=== PATIENT | female | born 1960 | race Caucasian/White ===

== ENCOUNTER 2017-11-03 08:31 | Inpatient (IN) | payer OTHER ==
[2017-10-26 13:51] VITALS: BMI 39.0
--- NOTE | 2017-10-26 13:59 | PAT Medication Instructions ---
Service Date Oct 26, 2017. Current Home Medication List Albuterol Hfa (Ventolin Hfa), 2-4 PUFFS INH Q6H Amitriptyline Hcl (Amitriptyline), 25 MG PO HS Aspirin (Aspirin Ec), 81 MG PO QAM Atorvastatin (Lipitor), 80 MG PO QPM Bupropion (Wellbutrin Sr), 150 MG PO BID Calcium Carbonate-Cholecalcife (Caltrate 600+D), 1 TAB PO BID Chlorhexidine Gluconate (Bulk) (Chlorhexidine Gluconate), 4 % TOP UD PRN for skin irritation Clobetasol Propionate (Clobetasol Propionate Cream 0.05%), 1 APPLN EXT DIRECTED PRN for hand irritation Cranberry-Vitamin C-Vitamin E (Cranberry Plus Vitamin C), 1 TAB PO QAM Cyanocobalamin (Vitamin B-12), 1,000 MCG INJ MONTHLY Duloxetine HCl (Cymbalta), 1 CAP PO HS Esomeprazole Magnesium (Nexium), 40 MG PO BID Fluticasone Propionate (Nasal) (Allergy Nasal [place] 24 Ho), 2 SPRAYS NA QAM Hydrocodone/Acetaminophen 5MG/325MG ([place] 5MG/325MG), 1-2 TAB PO q4-6 PRN for Pain Hydrocortisone (Cortef), 5 MG PO QAM Hydroxyzine Pamoate (Vistaril), 25 MG PO QPM Lamotrigine (Lamictal), 75 MG PO HS Levothyroxine Sodium (Levothyroxine Sodium), 1 TAB PO QAM Melatonin (Melatonin Maximum Strengt), 2 TAB PO HS Multiple Vitamins W/ Minerals (Hair Skin and Nails Formu), 2 TAB PO QAM Multivit/Min/Iron/Fol Ac/Pren ( Vitamin), 1 TAB PO BID Nitroglycerin (Nitrostat), 0.4 MG UT PRN Polyethylene (Miralax), 17 GM PEG QPM Pregabalin (Lyrica), 200 MG PO BID Propranolol La (Inderal La), 60 MG PO HS Topiramate (Topamax), 100 MG PO BID Trazodone Hcl (Trazodone), 25 MG PO HS Medication Instructions For Your Scheduled Surgery Cyanocobalamin (Vitamin B-12), 1,000 MCG INJ MONTHLY (okay to continue as directed) - Hold the following medications starting 10/27/17: Cranberry-Vitamin C-Vitamin E (Cranberry Plus Vitamin C), 1 TAB PO QAM - Hold the following medications 24 hours prior to surgery: Chlorhexidine Gluconate (Bulk) (Chlorhexidine Gluconate), 4 % TOP UD PRN for skin irritation Clobetasol Propionate (Clobetasol Propionate Cream 0.05%), 1 APPLN EXT DIRECTED PRN for hand irritation - Hold the following medications the morning of surgery: Calcium Carbonate-Cholecalcife (Caltrate 600+D), 1 TAB PO BID Multiple Vitamins W/ Minerals (Hair Skin and Nails Formu), 2 TAB PO QAM Multivit/Min/Iron/Fol Ac/Pren ( Vitamin), 1 TAB PO BID - Take the following medications the morning of surgery with a sip of water: Topiramate (Topamax), 100 MG PO BID Pregabalin (Lyrica), 200 MG PO BID Nitroglycerin (Nitrostat), 0.4 MG UT PRN (if needed) Levothyroxine Sodium (Levothyroxine Sodium), 1 TAB PO QAM Hydrocortisone (Cortef), 5 MG PO QAM Hydrocodone/Acetaminophen 5MG/325MG ([place] 5MG/325MG), 1-2 TAB PO q4-6 PRN for Pain (okay to take up to 4 hours prior to surgery if needed) Fluticasone Propionate (Nasal) (Allergy Nasal [place] 24 Ho), 2 SPRAYS NA QAM Esomeprazole Magnesium (Nexium), 40 MG PO BID Bupropion (Wellbutrin Sr), 150 MG PO BID Aspirin (Aspirin Ec), 81 MG PO QAM Albuterol Hfa (Ventolin Hfa), 2-4 PUFFS INH Q6H (if needed) - Take the following medications as scheduled the night before surgery: Trazodone Hcl (Trazodone), 25 MG PO HS Topiramate (Topamax), 100 MG PO BID Propranolol La (Inderal La), 60 MG PO HS Pregabalin (Lyrica), 200 MG PO BID Polyethylene (Miralax), 17 GM PEG QPM Nitroglycerin (Nitrostat), 0.4 MG UT PRN (if needed) Multivit/Min/Iron/Fol Ac/Pren ( Vitamin), 1 TAB PO BID Melatonin (Melatonin Maximum Strengt), 2 TAB PO HS Lamotrigine (Lamictal), 75 MG PO HS Hydroxyzine Pamoate (Vistaril), 25 MG PO QPM Hydrocodone/Acetaminophen 5MG/325MG ([place] 5MG/325MG), 1-2 TAB PO q4-6 PRN for Pain (if needed) Esomeprazole Magnesium (Nexium), 40 MG PO BID Duloxetine HCl (Cymbalta), 1 CAP PO HS Calcium Carbonate-Cholecalcife (Caltrate 600+D), 1 TAB PO BID Bupropion (Wellbutrin Sr), 150 MG PO BID Atorvastatin (Lipitor), 80 MG PO QPM' Albuterol Hfa (Ventolin Hfa), 2-4 PUFFS INH Q6H (if needed) Amitriptyline Hcl (Amitriptyline), 25 MG PO HS If you have any questions please call us at [phone] or [phone] or [phone]
[2017-11-03] VITALS (10 sets, daily range): BP systolic 92–122; BP diastolic 67–89; PULSE 56–75; TEMP 36.4; O2SAT 84–99; Ht 165.1 cm; Wt 112.6 kg
[~2017-11-03] VITALS: Ht 165.1 cm; Wt 112.6 kg
[~2017-11-03 08:31] MED LIST: ALBUMIN HUMAN 5% 12.5 GM/250 ML VIAL IV ONE; AMIT25TA19 PO; ASPI81TA28 PO; ATOR80TA PO; ATROPINE SULFATE 0.1 MG/ML 5ML SYR IV PRN; BUPR-79 PO; CALC-354 PO; CEFAZOLIN 2000MG IV PUSH 15 ML IV SCH; CHLO1SOL TOP; CLBCRM30 EXT; CRAN1CAP14 PO; CYAN10005 INJ; DULO-24 PO; EpHEDrine SULFATE INJ 50 MG/ML AMP IV PRN; FENTANYL CITRATE INJ 50 MCG/1 ML 2 ML VIAL IV PRN; FENTANYL CITRATE INJ 50 MCG/1 ML 2 ML VIAL ONE; FLUT50SP45; HYDR-5688 PO; HYDR1CAP85 PO; HYDR5TAB PO; LACTATED RINGER'S 1000ML 1,000 ML IV SCH; LAMO25TA PO; LEVO125T5 PO; MELATAB2 PO; MIDAZOLAM HCL 1 MG/ML 2ML VIAL ONE; MRLP17X PO; MULT-1018 PO; MoRPHine SULFATE 10 MG/ML CARP/VIAL IV PRN; NTRGSL/4 UT; NXM/40 PO; ONDANSETRON INJ 2 MG/ML 2 ML VIAL IV PRN; PREG200C PO; PRENTAB26 PO; PROP60CA5 PO; TOPI100T34 PO; TRAZ50TA35 PO; VNTHFA/IN INH
--- NOTE | 2017-11-03 08:48 | History & Physical Bridge Note ---
H&P Re-Evaluation Bridge Note: I have examined the patient, reviewed the History & Physical and in the interval since the performance of the History & Physical I have noted the following changes of clinical significance: No changes noted
--- NOTE | 2017-11-03 08:49 | History and Physical ---
History & Physical Date Nov 03, 2017. Chief Complaint Back and leg pain History of Present Illness The patient is a 56 year old female with complaints of chronic back and leg pain Past Medical/Surgical History Medical Problems: (1) Left knee DJD Additional History Hepatic Disease: No Endocrine Disorder: No Kidney Disease: No Hypertension: No Heart Disease: No Bleeding Tendencies: No Infectious Diseases: No Allergies Coded Allergies: ROSINA Inhibitors (Verified Adverse Reaction, Severe, drop in bp, 09/04/15) NSAIDs (Verified Adverse Reaction, Unknown, gastric bypass, 10/26/17) Home Medications Scheduled Albuterol Hfa (Ventolin Hfa), 2-4 PUFFS INH Q6H Amitriptyline Hcl (Amitriptyline), 25 MG PO HS Aspirin (Aspirin Ec), 81 MG PO QAM Atorvastatin (Lipitor), 80 MG PO QPM Bupropion (Wellbutrin Sr), 150 MG PO BID Calcium Carbonate-Cholecalcife (Caltrate 600+D), 1 TAB PO BID Cranberry-Vitamin C-Vitamin E (Cranberry Plus Vitamin C), 1 TAB PO QAM Cyanocobalamin (Vitamin B-12), 1,000 MCG INJ MONTHLY Duloxetine HCl (Cymbalta), 1 CAP PO HS Esomeprazole Magnesium (Nexium), 40 MG PO BID Fluticasone Propionate (Nasal) (Allergy Nasal [place] 24 Ho), 2 SPRAYS NA QAM Hydrocortisone (Cortef), 5 MG PO QAM Hydroxyzine Pamoate (Vistaril), 25 MG PO QPM Lamotrigine (Lamictal), 75 MG PO HS Levothyroxine Sodium (Levothyroxine Sodium), 1 TAB PO QAM Melatonin (Melatonin Maximum Strengt), 2 TAB PO HS Multiple Vitamins W/ Minerals (Hair Skin and Nails Formu), 2 TAB PO QAM Multivit/Min/Iron/Fol Ac/Pren ( Vitamin), 1 TAB PO BID Nitroglycerin (Nitrostat), 0.4 MG UT PRN Polyethylene (Miralax), 17 GM PEG QPM Pregabalin (Lyrica), 200 MG PO BID Propranolol La (Inderal La), 60 MG PO HS Topiramate (Topamax), 100 MG PO BID Trazodone Hcl (Trazodone), 25 MG PO HS Scheduled PRN Chlorhexidine Gluconate (Bulk) (Chlorhexidine Gluconate), 4 % TOP UD PRN for skin irritation Clobetasol Propionate (Clobetasol Propionate Cream 0.05%), 1 APPLN EXT DIRECTED PRN for hand irritation Hydrocodone/Acetaminophen 5MG/325MG ([place] 5MG/325MG), 1-2 TAB PO q4-6 PRN for Pain Physical Examination Skin: warm/dry, no rash Eyes: normal inspection, EOMI, sclerae normal ENT: normal ENT inspection, pharynx normal Head: normocephalic, atraumatic Neck: supple, no adenopathy, trachea midline Respiratory/Chest: lungs clear, normal breath sounds, no respiratory distress Cardiovascular: regular rate, rhythm, no edema, no murmur Abdomen / GI: normal bowel sounds, non tender Back: normal inspection Extremities: normal inspection, normal range of motion Neurologic/Psych: no motor/sensory deficits, alert, normal reflexes, oriented x 3 Diagnosis Lumbar spinal stenosis with scoliosis Plan of Treatment Removal of hardware L4 5 L5-S1 decompression and fusion T11 to L3 with iliac bolts
[2017-11-03] MEDS ORDERED: BACITRACIN 50000 UNIT VIAL ONE (08:58)
[2017-11-03] MEDS ORDERED: BUPIVACAINE/EPINEPHRINE 0.5% MPF 1:200,000 30 ML VIAL ONE (08:58)
[2017-11-03] MEDS ORDERED: THROMBIN FOR SOLN 20000 UNIT KIT ONE (08:58)
[2017-11-03] MEDS ORDERED: HYDROmorphone INJ 2 MG/ML SYR/VIAL ONE ×4 (09:58→13:31)
[2017-11-03] MEDS ORDERED: FENTANYL CITRATE INJ 50 MCG/1 ML 2 ML VIAL ONE ×4 (09:58→14:08)
[2017-11-03] MEDS ORDERED: PROPOFOL IV EMULSION 10 MG/ML 20 ML VIAL IV ONE (10:15)
[2017-11-03] MEDS ORDERED: DEXAMETHASONE SOD INJ 4 MG/ML VIAL ONE (10:15)
[2017-11-03] MEDS ORDERED: LIDOCAINE HCL 2% 2 ML VIAL (20MG/ML) ONE (10:15)
[2017-11-03] MEDS ORDERED: ONDANSETRON INJ 2 MG/ML 2 ML VIAL ONE ×2 (10:15→13:22)
[2017-11-03] MEDS ORDERED: HYDROCORTISONE SOD SUCCINATE 100 MG/2 ML VIAL ONE (10:15)
[2017-11-03 12:42] LABS: HEMATOCRIT 32.3 % (37-47); HEMOGLOBIN 10.3 g/dL (12.0-16.0)
[2017-11-03] MEDS ORDERED: CEFAZOLIN SOD 1 GM VIAL ONE (12:43)
[2017-11-03] MEDS ORDERED: ROCURONIUM BROMIDE 10 MG/ML 5 ML VIAL IV ONE (12:44)
[2017-11-03] MEDS ORDERED: EpHEDrine SULFATE 50MG/5ML SYR ONE (12:44)
[2017-11-03] MEDS ORDERED: VOLUVEN IN NSS ONE (12:44)
[2017-11-03] MEDS ORDERED: CALCIUM CHLORIDE 10% 10 ML SYR ONE (13:01)
[2017-11-03] MEDS ORDERED: FLOSEAL HEMOSTATIC MATRIX 10ML TOP ONE (13:05)
[2017-11-03] MEDS ORDERED: SODIUM CHLORIDE 0.9% 1000ML 1,000 ML IV SCH (13:17)
--- NOTE | 2017-11-03 13:17 | [facility] Operative Report ---
Operative Report Operative Date Nov 03, 2017. Pre-Operative Diagnosis Lumbar spinal stenosis with scoliosis Post-Operative Diagnosis Same Procedure(s) Performed #1 removal of posterior instrumentation L4 5 L5-S1. #2 expiration of fusion L4 5 L5-S1. #3 lumbar decompression medial facetectomies foraminotomies L1-2 L2 3 L3 4. #4 posterior spinal fusion T10 to S1. #5 bilateral SI joint fusions. #6 placement of posterior segmental instrumentation T10 to S1 with bilateral iliac bolts. #7 interbody fusion L2 3. #8 placement of peek cage 10 x 22 mm at L2-3. #9 placement infuse sponge sponge, mass graft in the posterior gutters and osteo-lamp in the interbody spaces. #10 placement locally harvested morcellized autograft in the posterior lateral gutters. Surgeon Dr. Juan Gardener Florist Surgeon(s) Destiney Weeks PA-C Estimated Blood Loss 1300 Findings Severe spinal stenosis with scoliosis Description of Procedure Patient was met with preoperatively case discussed all questions addressed. After informed consent obtained patient was taken to the operative suite underwent intubation and placed in a prone position the Sim table on top of the Jonnie frame. All bony prominences were well-padded the eyes inspected to ensure no external pressure placed upon them. This point the thoracal lumbar spine was prepped and draped in normal sterile fashion. Sharp dissection with the assistance of Bovie cautery was performed onto an exposing the lamina and transverse processes of T10 T11 T12 L1 L2 L3 in the instrumentation at L4 L5 S1 levels as well as bilateral SI joints. Then proceeded remove the hardware L4 L4 5 and S1 levels explored the fusion mass noting it to be intact. Then performed a complete laminectomy of L3 L2 and L1 addressing severe stenosis. This included medial facetectomies foraminotomies. After this complete pedicle screws were placed in T10 T11 L1 L2-L3 L4 S1 levels as well as bilateral iliac bolts. Through a transforaminal approach on the left complete discectomy of L2- 3 was performed endplates graded to subcortical bleeding bone and a 10 x 22 mm peek cage filled with osteal bone graft tapped in position. The processes rods were then cut contoured and locked in position bilaterally. Transverse processes and lamina of T10-T11 T12 L1 L2 L3 L4 L5 burred to subcortical bleeding bone as well as burring out the bilateral SI joints to subcortical bleeding bone. Infuse collagen sponge mass graft locally harvested morcellized autograft was placed in the bilateral SI joints in the posterior lateral gutters. A 15 round TASHA drain was inserted. Incision was then closed with 1 Vicryl fascia 2-0 Vicryl subcutaneous tensely 4-0 Monocryl for final skin closure Steri-Strips dressings placed. Patient with continued PACU stable condition. Please note Destiney Kelly was present at the entire procedure involved in patient positioning complex portions of the surgery and final skin closure. I attest to the content of the Intraoperative Record and any orders documented therein. Any exceptions are noted below.
[2017-11-03] MEDS ORDERED: GLYCOPYRROLATE INJ 0.2 MG/ML VIAL ONE (13:22)
[2017-11-03] MEDS ORDERED: NEOSTIGMINE METHYLSULFATE 1 MG/ML 10ML VIAL ONE (13:22)
[2017-11-03] MEDS ORDERED: METOCLOPRAMIDE HCL INJ 5 MG/ML 2 ML VIAL IV PRN (13:30)
[2017-11-03] MEDS ORDERED: ONDANSETRON INJ 2 MG/ML 2 ML VIAL IV PRN (13:30)
[2017-11-03] MEDS ORDERED: NITROGLYCERIN 0.4 MG SL PER TAB CHARGE UT SCH (13:30)
[2017-11-03] MEDS ORDERED: PROMETHAZINE HCL INJ 12.5 MG in SODIUM CHLORIDE 0.9% 50ML 50 ML IV PRN (13:30)
[2017-11-03] MEDS ORDERED: ACETAMINOPHEN 500 MG TAB PO PRN (13:30)
[2017-11-03] MEDS ORDERED: LORAZEPAM INJ 0.5 MG in SYRINGE 0 ML IV PRN (13:30)
[2017-11-03] MEDS ORDERED: BISACODYL 10 MG SUPP PR PRN (13:30)
[2017-11-03] MEDS ORDERED: SOD PHOSPHATE/SOD BIPHOSPHATE ENEMA 132 ML BTL PR PRN (13:30)
[2017-11-03] MEDS ORDERED: hydrOXYzine HCL 25 MG TAB PO PRN (13:30)
[2017-11-03] MEDS ORDERED: LORAZEPAM 0.5 MG TAB PO PRN (13:30)
[2017-11-03] MEDS ORDERED: ACETAMINOPHEN IV 100 ML IV PRN (13:30)
[2017-11-03] MEDS ORDERED: HYDROmorphone HCL 0.5MG/ML 50 ML CASSETTE IV PRN (13:30)
[2017-11-03] MEDS ORDERED: NALOXONE HCL 0.4 MG/1 ML VIAL/CARP IV PRN ×2 (13:30)
[2017-11-03] MEDS ORDERED: FAMOTIDINE 20 MG TAB PO PRN (13:30)
[2017-11-03] MEDS ORDERED: DO NOT ADMINISTER PNEUMOCOCCAL VACCINE PRN (13:30)
[2017-11-03] MEDS ORDERED: ALUMINUM/MAGNESIUM SUSP 30 ML UDC PO PRN (13:30)
[2017-11-03] MEDS ORDERED: DO NOT ADMINISTER FLU VACCINE PRN (13:30)
--- NOTE | 2017-11-03 13:36 | DIAGNOSTIC IMAGING REPORT ---
LUMBAR SPINE 2 OR 3 VIEW CLINICAL HISTORY: L4-S1 REMOVE HARDWARE/T11-L3 DECOMPRESSION/FUSION/BOLTS Fluoroscopy time: 43.3 seconds. COMPARISON STUDY: Lumbar spine fluoroscopic images October 04, 2013. FINDINGS: Hardware removal is noted. A previous L5-S1 discectomy is noted. An interval L2-L3 discectomy with interbody spacer placement as noted. Iliac bolts are in place. There are bilateral pedicle screws at T10, T11, L1, L2, L3, L4 and S1 levels. IMPRESSION: Postoperative findings consistent with an interval L2-L3 discectomy fusion and T10-S1 fusion with placement of bilateral iliac bolts. Electronically signed by: Zeferino Alcazar M.D. 11/03/2017 1:35 PM Dictated Date/Time: 11/03/2017 1:30 PM
[2017-11-03] MEDS ORDERED: HYDROmorphone HCL 0.5MG/ML 50 ML CASSETTE ONE (13:47)
[2017-11-03] MEDS ORDERED: MoRPHine SULFATE 10 MG/ML CARP/VIAL ONE (14:09)
--- NOTE | 2017-11-03 14:23 | Anesthesiology Progress Note ---
Anesthesia Post Op Note Date & Time Nov 03, 2017 at 14:21 Vital Signs Vital Signs Past 12 Hours Date Time Temp Pulse Resp B/P (MAP) Pulse Ox O2 Delivery O2 Flow Rate FiO2 11/03/17 13:46 36.3 71 16 134/85 99 Oxymask 10 11/03/17 09:00 36.4 56 20 122/87 96 Room Air Notes Mental Status: alert / awake / arousable, participated in evaluation Pt Amnestic to Procedure: Yes Nausea / Vomiting: adequately controlled Pain: adequately controlled Airway Patency, RR, SpO2: stable & adequate BP & HR: stable & adequate Hydration State: stable & adequate Anesthetic Complications: no major complications apparent Due to the pt's estimated blood loss of 1300mL and pt's history of CAD s/p cardiac stent, the pt will be discharged from PACU to telemetry for closer observation.
[2017-11-03] MEDS: SODIUM CHLORIDE 0.9% 1000ML 1,000 ML IV SCH ×2 (15:30→22:03)
[2017-11-03] MEDS: ALBUTEROL HFA 8 GM INHALER INH SCH (17:55)
[2017-11-03] MEDS: CEFAZOLIN IV 2,000 MG in SYRINGE 0 ML IV SCH (17:55)
--- NOTE | 2017-11-03 20:20 | Medical Consult ---
Consultation Date of Consultation: Nov 03, 2017. Attending Physician: Domingo Juan D.O. Reason for Consultation: Medical management . History of Present Illness 56-year-old female followed by Pranav Hong PA-C in [place]. History of coronary artery disease status post stenting, COPD, sleep apnea, adrenal insufficiency, and other problems noted below. Removal of lumbar hardware and lumbar fusion performed today by Dr. Juan. Doing fairly well postoperatively. No chest pain. No cough or dyspnea. No nausea or vomiting. Has Hemphill catheter. Having some postoperative pain. . Past Medical/Surgical History Chronic and Resolved Medical Problems: (1) Adrenal insufficiency Status: Chronic (2) COPD (chronic obstructive pulmonary disease) Status: Chronic (3) Coronary artery disease Status: Chronic (4) Degenerative disc disease Status: Chronic (5) Fibromyalgia Status: Chronic (6) Hypertension Status: Chronic (7) Metabolic syndrome Status: Chronic (8) Obesity Status: Chronic (9) Sleep apnea Permanent Comment: CPAP Status: Chronic Surgical Problems: (1) History of incisional hernia repair Status: Chronic (2) Status following gastric bypass for weight loss Status: Chronic (3) Status post coronary artery stent placement Status: Chronic (4) Status post hysterectomy Status: Chronic (5) Status post lumbar surgery Status: Chronic (6) Status post cholecystectomy Status: Chronic . Family History Mother-hypertension, diabetes, arthritis Father-coronary artery disease, ALS, hypertension Sister-coronary artery disease, peripheral Maternal grandfather -prostate cancer Paternal grandfather-coronary disease, diabetes . Social History Smoking Status: Former Smoker Alcohol Use: occasionally Drug Use: none Marital Status: Housing Status: lives with family Allergies Coded Allergies: ROSINA Inhibitors (Verified Adverse Reaction, Severe, drop in bp, 11/03/17) NSAIDs (Verified Adverse Reaction, Unknown, gastric bypass, 11/03/17) Home Medications Reported Home Medications Medications Dose Route/Sig Max Daily Dose Days Date Category Dose Instructions Clobetasol Propionate Cream 0.05% (Clobetasol Propionate) 90 Appln/30 Gm Cr 1 Appln EXT DIRECTED PRN 10/26/17 Reported Allergy Nasal [place] 24 Ho (Fluticasone Propionate (Nasal)) 50 Mcg/Act Spr 2 Sprays NA QAM 10/26/17 Reported Miralax (Polyethylene) 17 Gm Pow 17 Gm PO QPM 10/26/17 Reported Vitamin B-12 (Cyanocobalamin) 1,000 Mcg Tab 1,000 Mcg INJ MONTHLY 10/26/17 Reported Trazodone (Trazodone HCl) 50 Mg Tab 25 Mg PO HS 10/26/17 Reported Inderal La (Propranolol HCl) 60 Mg Capcr 60 Mg PO HS 10/26/17 Reported Hair Skin and Nails Formu (Multiple Vitamins W/ Minerals) 1 Tab Tab 2 Tab PO QAM 10/26/17 Reported Melatonin Maximum Strengt (Melatonin) 5 Mg Tab 2 Tab PO HS 30 10/26/17 Reported Lamictal (Lamotrigine) 25 Mg Tab 75 Mg PO HS 10/26/17 Reported Cymbalta (Duloxetine HCl) 20 Mg Cap 1 Cap PO HS 30 10/26/17 Reported Cranberry Plus Vitamin C (Cranberry-Vitamin C-Vitamin E) 1 Cap Cap 1 Tab PO QAM 10/26/17 Reported Aspirin Ec (Aspirin) 81 Mg Tab 81 Mg PO QAM 10/26/17 Reported Ventolin Hfa (Albuterol) 200 Puffs/33726 Mcg Aers 2-4 Puffs INH Q6H 10/26/17 Reported Caltrate 600+D (Calcium Carbonate-Cholecalcife) 1 Tab Tab 1 Tab PO BID 10/26/17 Reported Lipitor (Atorvastatin) 80 Mg Tab 80 Mg PO QPM 10/26/17 Reported [place] 5MG/325MG (Acetaminophen/Hydrocodone Bitart) Tab 1-2 Tab PO Q4-6 PRN 09/06/15 Rx PRN PAIN Vistaril (Hydroxyzine Pamoate) 25 Mg Cap 25 Mg PO QPM 08/09/15 Reported Chlorhexidine Gluconate (Chlorhexidine Gluconate (Bulk)) 1 Mallorie Mallorie 4 % TOP UD PRN 08/09/15 Reported Topamax (Topiramate) 100 Mg Tab 100 Mg PO BID 08/09/15 Reported Lyrica (Pregabalin) 200 Mg Cap 200 Mg PO BID 08/09/15 Reported Levothyroxine Sodium 125 Mcg Tab 1 Tab PO QAM 90 08/09/15 Reported Cortef (Hydrocortisone) 5 Mg Tab 5 Mg PO QAM 08/09/15 Reported Nitrostat (Nitroglycerin) 0.4 Mg Tab 0.4 Mg UT PRN 09/25/13 Reported Wellbutrin Sr (Bupropion HCl) 150 Mg Ertab 150 Mg PO BID 09/25/13 Reported Nexium (Esomeprazole Magnesium) 40 Mg Capcr 40 Mg PO BID 09/21/13 Reported Current Inpatient Medications Current Inpatient Medications Medications (Trade) Dose Ordered Sig/Estephania Route Start Time Stop Time Status Last Admin Dose Admin Promethazine HCl 12.5 mg/Sodium Chloride 50.5 ml @ 202 mls/hr Q6H PRN IV 11/03/17 13:30 12/03/17 13:29 Ondansetron HCl (Zofran Inj) 4 mg Q6H PRN IV 11/03/17 13:30 12/03/17 13:29 Metoclopramide HCl (Reglan Inj) 10 mg Q6H PRN IV 11/03/17 13:30 12/03/17 13:29 Lorazepam (Ativan Tab) 0.5 mg Q8H PRN PO 11/03/17 13:30 12/03/17 13:29 Lorazepam 0.5 mg/ Syringe 0.25 ml @ 1 mls/min Q8H PRN IV 11/03/17 13:30 12/03/17 13:29 Pneumococcal Polysaccharide Vaccine 1 ea PRN PRN N/A 11/03/17 13:30 12/03/17 13:29 Influenza Virus Vacc Triv Types A&B 1 ea PRN PRN N/A 11/03/17 13:30 12/03/17 13:29 Polyethylene (Miralax Powder Packet) 17 gm Q6 PO 11/05/17 06:00 12/05/17 05:59 Bisacodyl (Dulcolax Supp) 10 mg DAILY PRN ME 11/03/17 13:30 12/03/17 13:29 Magnesium Hydroxide (Milk Of Magnesia Susp) 30 ml DAILY PRN PO 11/03/17 13:30 12/03/17 13:29 Hydromorphone HCl (Dilaudid Inj) 0.5 mg Q3H PRN IV 11/04/17 06:00 11/18/17 05:59 Oxycodone HCl (Roxicodone Immediate Rel Tab) 5-10mg prn moderate to sev... Q4H PRN PO 11/04/17 06:00 11/18/17 05:59 Cefazolin Sodium 2000 mg/Syringe 15 ml @ 5 mls/min Q8H IV 11/03/17 18:00 11/04/17 02:08 11/03/17 17:55 5 MLS/MIN Sodium Chloride 1,000 ml @ 150 mls/hr Q6H40M IV 11/03/17 15:30 12/03/17 15:29 11/03/17 15:30 150 MLS/HR Acetaminophen (Tylenol Tab) 1,000 mg Q8H PRN PO 11/03/17 13:30 12/03/17 13:29 Acetaminophen 100 ml @ 400 mls/hr Q8H PRN IV 11/03/17 13:30 12/03/17 13:29 Naloxone HCl (Narcan Inj) 0.1 mg Q5M PRN IV 11/03/17 13:30 12/03/17 13:29 Senna/Docusate Sodium (Senokot S Tab) 2 tab HS PO 11/03/17 21:00 12/03/17 20:59 Sodium Biphosphate/ Sodium Phosphate (Fleet Enema) 132 ml ONE PRN ME 11/03/17 13:30 12/03/17 13:29 Hydroxyzine HCl (Vistaril Tab) 25 mg Q8H PRN PO 11/03/17 13:30 12/03/17 13:29 Al Hydroxide/Mg Hydroxide (Maalox Susp) 30 ml Q6H PRN PO 11/03/17 13:30 12/03/17 13:29 Famotidine (Pepcid Tab) 20 mg Q12 PRN PO 11/03/17 13:30 12/03/17 13:29 Diphenhydramine HCl (Benadryl Cap) 25 mg Q6H PRN PO 11/03/17 13:30 12/03/17 13:29 Miscellaneous Information (Discontinue DIRECTOR OF PLACEMENT) 1 ea TODAY@0600 N/A 11/04/17 06:00 11/04/17 06:01 Naloxone HCl (Narcan Inj) 0.1 mg Q5M PRN IV 11/03/17 13:30 11/04/17 06:00 Hydromorphone HCl (Dilaudid Facialist) 25 mg PRN PRN IV 11/03/17 13:30 11/04/17 06:00 11/03/17 15:20 25 MG Sodium Chloride 1,000 ml @ 15 mls/hr Q24H IV 11/03/17 13:17 11/04/17 06:00 11/03/17 13:17 15 MLS/HR Albuterol (Ventolin Hfa Inhaler) 2 puffs Q6 INH 11/03/17 18:00 12/03/17 17:59 11/03/17 17:55 2 PUFFS Aspirin (Ecotrin Tab) 81 mg QAM PO 11/04/17 09:00 12/04/17 08:59 Atorvastatin Calcium (Lipitor Tab) 80 mg QPM PO 11/03/17 21:00 12/03/17 20:59 Bupropion HCl (Wellbutrin-Sr Tab) 150 mg BID PO 11/03/17 21:00 12/03/17 20:59 Duloxetine HCl (Cymbalta Cap) 20 mg HS PO 11/03/17 21:00 12/03/17 20:59 Fluticasone Propionate (Flonase Nasal [place]) 2 sprays QAM NA 11/04/17 09:00 12/04/17 08:59 Hydrocortisone (Cortef Tab) 5 mg QAM PO 11/04/17 09:00 12/04/17 08:59 Lamotrigine (Lamictal Tab) 75 mg HS PO 11/03/17 21:00 12/03/17 20:59 Levothyroxine Sodium (Synthroid Tab) 125 mcg DAILYBB PO 11/04/17 06:00 12/04/17 05:59 Nitroglycerin (Nitrostat Tab) 0.4 mg PRN UT 11/03/17 13:30 12/03/17 13:29 Pregabalin (Lyrica Cap) 200 mg BID PO 11/03/17 21:00 12/03/17 20:59 Propranolol HCl (Inderal La Cap) 60 mg HS PO 11/03/17 21:00 12/03/17 20:59 Topiramate (Topamax Tab) 100 mg BID PO 11/03/17 21:00 12/03/17 20:59 Trazodone HCl (Desyrel Tab) 25 mg HS PO 11/03/17 21:00 12/03/17 20:59 Pantoprazole Sodium (Protonix Tab) 40 mg BID PO 11/03/17 21:00 12/03/17 20:59 Hydromorphone HCl (Dilaudid Inj) 1 mg Q3H PRN IV 11/03/17 15:45 11/17/17 15:44 Review of Systems Constitutional: No fever, No weight loss Respiratory: No cough, No shortness of breath Cardiovascular: No chest pain Abdomen: + constipation, No nausea, No vomiting, No diarrhea, No GI bleeding Genitourinary - Female: No dysuria, No hematuria Hematologic / Lymphatic: + abnormal bleeding/bruising (Bruises easily) Physical Exam Date Time Temp Pulse Resp B/P (MAP) Pulse Ox O2 Delivery O2 Flow Rate FiO2 11/03/17 19:11 69 18 92/80 (84) 97 Nasal Cannula 2.0 11/03/17 18:31 75 17 112/71 (85) 96 11/03/17 17:45 75 16 108/81 (90) 11/03/17 16:45 64 4 106/89 (95) 11/03/17 16:15 66 4 102/73 (83) 84 11/03/17 15:45 60 14 99/73 (82) 93 11/03/17 15:08 68 16 93 11/03/17 15:08 67 16 11/03/17 15:06 141/89 11/03/17 15:03 67 14 93 11/03/17 15:03 67 14 11/03/17 15:02 /69 11/03/17 14:58 68 12 94 11/03/17 14:58 68 12 11/03/17 14:57 106/87 11/03/17 14:53 68 16 11/03/17 14:53 68 16 92 11/03/17 14:52 36.2 11/03/17 14:51 123/93 11/03/17 14:48 66 18 94 11/03/17 14:48 66 18 11/03/17 14:47 63 13 11/03/17 14:47 63 13 100/70 93 11/03/17 14:42 69 16 11/03/17 14:42 69 16 135/85 92 11/03/17 14:37 68 16 92 11/03/17 14:37 69 16 11/03/17 14:36 123/83 11/03/17 14:32 67 16 110/85 96 11/03/17 14:32 67 16 11/03/17 14:27 65 20 11/03/17 14:27 74 20 148/74 98 11/03/17 14:23 117/75 11/03/17 14:22 67 16 11/03/17 14:22 66 16 96 11/03/17 14:21 65 16 11/03/17 14:21 65 16 97 11/03/17 14:17 136/71 11/03/17 14:16 63 16 11/03/17 14:16 63 16 95 11/03/17 14:14 111/83 11/03/17 14:11 64 16 96 11/03/17 14:11 64 16 11/03/17 14:07 105/70 11/03/17 14:06 65 13 95 11/03/17 14:06 65 13 11/03/17 14:02 112/86 11/03/17 14:01 63 11 98 11/03/17 14:01 63 11 11/03/17 13:57 122/76 11/03/17 13:56 61 17 100 11/03/17 13:56 61 17 11/03/17 13:52 133/80 11/03/17 13:51 72 17 95 11/03/17 13:51 66 17 11/03/17 13:47 134/85 11/03/17 13:46 36.3 71 16 134/85 99 Oxymask 10 11/03/17 09:00 36.4 56 20 122/87 96 Room Air General Appearance: no apparent distress, + mild distress, + obese Head: normocephalic, atraumatic Eyes: normal inspection, PERRL, EOMI, sclerae normal ENT: normal ENT inspection, hearing grossly normal Neck: thyroid normal, trachea midline Respiratory/Chest: lungs clear (to auscultation), no respiratory distress, no accessory muscle use Cardiovascular: regular rate, rhythm, no edema, no gallop, no JVD, no murmur Abdomen/GI: normal bowel sounds, non tender, soft, no organomegaly Extremities/Musculoskelatal: no calf tenderness, + pertinent finding (no cyanosis; no clubbing; TEDS and SCD's applied) Neurologic/Psych: talent program manager II-XII nml as tested (PERRL, EOMI, no facial palsy), no motor/sensory deficits (motor strength extremities grossly intact), alert, normal mood/affect, oriented x 3 Skin: normal color, warm/dry, no rash Lymphatic: no adenopathy (Cervical) Laboratory Results Last 24 Hours Test 11/03/17 12:31 Hemoglobin 10.3 g/dL Hematocrit 32.3 % Assessment & Plan STATUS POST REMOVAL OF LUMBAR HARDWARE + LUMBAR FUSION Doing well postoperatively. CORONARY ARTERY DISEASE No anginal symptoms. Status post coronary PCI with stenting. Continue aspirin if okay from surgical perspective. Continue propranolol and statin. COPD Respiratory status stable. Incentive spirometry. Continue usual inhalers. SLEEP APNEA Continue CPAP. ADRENAL INSUFFICIENCY On chronic steroid therapy for adrenal insufficiency. Medication reconciliation indicates the patient is taking hydrocortisone 5 mg daily. According to outpatient medication list, current steroid dosage prednisone 5 mg daily. Will correct medication reconciliation. Received IV hydrocortisone perioperatively. Hemodynamically stable. HYPOTHYROIDISM Continue levothyroxine. OBESITY BMI 41. AHA diet.diet. FIBROMYALGIA /OSTEOARTHRITIS Continue usual medications. VTE PROPHYLAXIS Per Orthopedics protocol. Thank you for this consultation. We will follow the patient with you during their hospital stay. Dr. Enrique will be assuming medical management on 11/04. You can reach a member of the [facility] Medicine Team 29/03 via pager @ [phone]. You can reach me via cell @ [phone]. .
[2017-11-03] MEDS: DULOXETINE HCL 20 MG CAP PO SCH (20:56)
[2017-11-03] MEDS: TRAZODONE HCL 50 MG TAB PO SCH (20:56)
[2017-11-03] MEDS: PROPRANOLOL HCL 60 MG LA CAP PO SCH (20:57)
[2017-11-03] MEDS: ATORVASTATIN 40 MG TAB PO SCH (20:57)
[2017-11-03] MEDS: BuPROPion SR 150 MG TABCR PO SCH (20:57)
[2017-11-03] MEDS: TOPIRAMATE 100 MG TAB PO SCH (20:57)
[2017-11-03] MEDS: PANTOprazole SOD 40 MG TAB PO SCH (20:57)
[2017-11-03] MEDS: DOCUSATE SODIUM/SENNA 50/8.6MG TAB PO SCH (20:57)
[2017-11-03] MEDS: PREGABALIN 100 MG CAP PO SCH (21:00)
[2017-11-04] MEDS: CEFAZOLIN IV 2,000 MG in SYRINGE 0 ML IV SCH (02:19)
[2017-11-04 03:38] VITALS: BP_SYST 117; PULSE 70; TEMP 36.6; O2SAT 100
[2017-11-04] MEDS: SODIUM CHLORIDE 0.9% 1000ML 1,000 ML IV SCH ×2 (04:39→09:25)
[2017-11-04] MEDS ORDERED: DC PCA SCH (06:00)
[2017-11-04] MEDS: LEVOTHYROXINE 125 MCG TAB PO SCH (06:06)
[2017-11-04] MEDS: ALBUTEROL HFA 8 GM INHALER INH SCH ×5 (06:06→23:21)
[2017-11-04] MEDS: OXYCODONE HCL IR 5 MG TAB (IMMEDIATE RELEASE) PO PRN ×4 (06:15→21:12)
[2017-11-04 06:37] LABS: BASO % 0.1 %; BASO ABS # 0.01 K/uL (0-0.2); EOS % 0.1 %; EOS ABS # 0.01 K/uL (0-0.5); HEMATOCRIT 29.4 % (37-47); HEMOGLOBIN 9.5 g/dL (12.0-16.0); IG# 0.05 K/uL (0.00-0.02); LYMPH % 15.5 %; LYMPH ABS # 1.25 K/uL (1.2-3.4); MEAN CELL VOLUME 92.7 fL (80-100); MEAN CORPUSCULAR HGB CONC 32.3 g/dl (32-36); MONO % 9.3 %; MONO ABS # 0.75 K/uL (0.11-0.59); NEUT % 74.4 %; NEUT ABS # 5.98 K/uL (1.4-6.5); NUCLEATED RED BLOOD CELL ABS 0.02 K/uL (0-0); PLATELET COUNT 133 K/uL (130-400); RED CELL DISTRIBUTION WIDTH CV 16.6 % (11.5-14.5); RED CELL DISTRIBUTION WIDTH SD 56.2 fL (36.4-46.3); WHITE BLOOD COUNT 8.05 K/uL (4.8-10.8)
[2017-11-04 07:07] LABS: CALCIUM 7.9 mg/dl (8.5-10.1); CREATININE 0.64 mg/dl (0.60-1.20); POTASSIUM 4.3 mmol/L (3.5-5.1)
[2017-11-04] MEDS ORDERED: PRED-301 PO (07:23)
[2017-11-04 07:49] VITALS: BP 102/44; PULSE 76; TEMP 36.9; O2SAT 96
--- NOTE | 2017-11-04 07:54 | Progress Note ---
Progress Note Date of Service Nov 04, 2017. Progress Note Patient's pain is well-controlled. She denies any leg pain. She is comfortable sitting up in bed and eating her breakfast. Vital signs are stable. Hematocrit stable. On exam she is excellent strength testing. Assessment status post thoracolumbar fusion. Plan at this time when she is cleared by medicine we will have her transferred to the orthopedic floor. At that point initiate more activity with physical therapy occupational therapy we will determine disposition over the next few days pending her results with therapy.
[2017-11-04] MEDS: FLUTICASONE PROPIONATE NA SPR 16 GM BTL SCH (08:40)
[2017-11-04] MEDS: PREGABALIN 100 MG CAP PO SCH ×2 (08:41→21:11)
[2017-11-04] MEDS: ASPIRIN 81 MG ECTAB PO SCH (08:41)
[2017-11-04] MEDS: PANTOprazole SOD 40 MG TAB PO SCH ×2 (08:41→21:11)
[2017-11-04] MEDS: TOPIRAMATE 100 MG TAB PO SCH ×2 (08:42→21:11)
[2017-11-04] MEDS: BuPROPion SR 150 MG TABCR PO SCH ×2 (08:42→21:11)
[2017-11-04] MEDS: HYDROmorphone INJ 1 MG/ML SYR IV PRN ×2 (08:47→17:50)
--- NOTE | 2017-11-04 08:59 | Progress Note ---
Subjective Date of Service: Nov 04, 2017. Subjective Pt evaluation today including: conversation w/ patient, physical exam, lab review, review of studies, review of inpatient medication list Saw/examined the patient in room 205 Back pain is improving, though feeling slightly stiff this morning Denies chest pain/shortness of breath Review of Systems Constitutional: No fever, No chills, No weakness Respiratory: No shortness of breath Cardiac: No chest pain Musculoskeletal: + see HPI, + joint pain, + muscle pain Medications Current Inpatient Medications Medications (Trade) Dose Ordered Sig/Estephania Route Start Time Stop Time Status Last Admin Dose Admin Promethazine HCl 12.5 mg/Sodium Chloride 50.5 ml @ 202 mls/hr Q6H PRN IV 11/03/17 13:30 12/03/17 13:29 Ondansetron HCl (Zofran Inj) 4 mg Q6H PRN IV 11/03/17 13:30 12/03/17 13:29 Metoclopramide HCl (Reglan Inj) 10 mg Q6H PRN IV 11/03/17 13:30 12/03/17 13:29 Lorazepam (Ativan Tab) 0.5 mg Q8H PRN PO 11/03/17 13:30 12/03/17 13:29 Lorazepam 0.5 mg/ Syringe 0.25 ml @ 1 mls/min Q8H PRN IV 11/03/17 13:30 12/03/17 13:29 Pneumococcal Polysaccharide Vaccine 1 ea PRN PRN N/A 11/03/17 13:30 12/03/17 13:29 Influenza Virus Vacc Triv Types A&B 1 ea PRN PRN N/A 11/03/17 13:30 12/03/17 13:29 Polyethylene (Miralax Powder Packet) 17 gm Q6 PO 11/05/17 06:00 12/05/17 05:59 Bisacodyl (Dulcolax Supp) 10 mg DAILY PRN [place] 11/03/17 13:30 12/03/17 13:29 Magnesium Hydroxide (Milk Of Magnesia Susp) 30 ml DAILY PRN PO 11/03/17 13:30 12/03/17 13:29 Hydromorphone HCl (Dilaudid Inj) 0.5 mg Q3H PRN IV 11/04/17 06:00 11/18/17 05:59 Oxycodone HCl (Roxicodone Immediate Rel Tab) 5-10mg prn moderate to sev... Q4H PRN PO 11/04/17 06:00 11/18/17 05:59 11/04/17 06:15 10 MG Sodium Chloride 1,000 ml @ 150 mls/hr Q6H40M IV 11/03/17 15:30 12/03/17 15:29 11/04/17 04:39 150 MLS/HR Acetaminophen (Tylenol Tab) 1,000 mg Q8H PRN PO 11/03/17 13:30 12/03/17 13:29 Acetaminophen 100 ml @ 400 mls/hr Q8H PRN IV 11/03/17 13:30 12/03/17 13:29 Naloxone HCl (Narcan Inj) 0.1 mg Q5M PRN IV 11/03/17 13:30 12/03/17 13:29 Senna/Docusate Sodium (Senokot S Tab) 2 tab HS PO 11/03/17 21:00 12/03/17 20:59 11/03/17 20:57 2 TAB Sodium Biphosphate/ Sodium Phosphate (Fleet Enema) 132 ml ONE PRN [place] 11/03/17 13:30 12/03/17 13:29 Hydroxyzine HCl (Vistaril Tab) 25 mg Q8H PRN PO 11/03/17 13:30 12/03/17 13:29 Al Hydroxide/Mg Hydroxide (Maalox Susp) 30 ml Q6H PRN PO 11/03/17 13:30 12/03/17 13:29 Famotidine (Pepcid Tab) 20 mg Q12 PRN PO 11/03/17 13:30 12/03/17 13:29 Diphenhydramine HCl (Benadryl Cap) 25 mg Q6H PRN PO 11/03/17 13:30 12/03/17 13:29 Albuterol (Ventolin Hfa Inhaler) 2 puffs Q6 INH 11/03/17 18:00 12/03/17 17:59 11/04/17 06:06 2 PUFFS Aspirin (Ecotrin Tab) 81 mg QAM PO 11/04/17 09:00 12/04/17 08:59 11/04/17 08:41 81 MG Atorvastatin Calcium (Lipitor Tab) 80 mg QPM PO 11/03/17 21:00 12/03/17 20:59 11/03/17 20:57 80 MG Bupropion HCl (Wellbutrin-Sr Tab) 150 mg BID PO 11/03/17 21:00 12/03/17 20:59 11/04/17 08:42 150 MG Duloxetine HCl (Cymbalta Cap) 20 mg HS PO 11/03/17 21:00 12/03/17 20:59 11/03/17 20:56 20 MG Fluticasone Propionate (Flonase Nasal [place]) 2 sprays QAM NA 11/04/17 09:00 12/04/17 08:59 11/04/17 08:40 2 SPRAYS Lamotrigine (Lamictal Tab) 75 mg HS PO 11/03/17 21:00 12/03/17 20:59 11/03/17 20:57 75 MG Levothyroxine Sodium (Synthroid Tab) 125 mcg DAILYBB PO 11/04/17 06:00 12/04/17 05:59 11/04/17 06:06 125 MCG Nitroglycerin (Nitrostat Tab) 0.4 mg PRN [place] 11/03/17 13:30 12/03/17 13:29 Pregabalin (Lyrica Cap) 200 mg BID PO 11/03/17 21:00 12/03/17 20:59 11/04/17 08:41 200 MG Propranolol HCl (Inderal La Cap) 60 mg HS PO 11/03/17 21:00 12/03/17 20:59 Topiramate (Topamax Tab) 100 mg BID PO 11/03/17 21:00 12/03/17 20:59 11/04/17 08:42 100 MG Trazodone HCl (Desyrel Tab) 25 mg HS PO 11/03/17 21:00 12/03/17 20:59 11/03/17 20:56 25 MG Pantoprazole Sodium (Protonix Tab) 40 mg BID PO 11/03/17 21:00 12/03/17 20:59 11/04/17 08:41 40 MG Hydromorphone HCl (Dilaudid Inj) 1 mg Q3H PRN IV 11/03/17 15:45 11/17/17 15:44 Prednisone (PredniSONE TAB) 5 mg DAILY PO 11/04/17 09:00 12/04/17 08:59 Objective Vital Signs Date Time Temp Pulse Resp B/P (MAP) Pulse Ox O2 Delivery O2 Flow Rate FiO2 11/04/17 07:49 36.9 76 18 102/44 (63) 96 Nasal Cannula 2.0 11/04/17 04:00 CPAP 4.0 11/04/17 03:38 36.6 70 18 117/ (39) 100 CPAP 11/04/17 00:00 CPAP 4.0 11/03/17 23:45 36.4 72 17 104/67 (79) 99 CPAP 11/03/17 22:29 96 4.0 11/03/17 20:19 97 Nasal Cannula 2.0 11/03/17 19:11 69 18 92/80 (84) 97 Nasal Cannula 2.0 11/03/17 18:31 75 17 112/71 (85) 96 11/03/17 17:45 75 16 108/81 (90) 11/03/17 16:45 64 4 106/89 (95) 11/03/17 16:15 66 4 102/73 (83) 84 11/03/17 15:45 60 14 99/73 (82) 93 11/03/17 15:08 68 16 93 11/03/17 15:08 67 16 11/03/17 15:06 141/89 11/03/17 15:03 67 14 93 11/03/17 15:03 67 14 11/03/17 15:02 /69 11/03/17 14:58 68 12 94 11/03/17 14:58 68 12 11/03/17 14:57 106/87 11/03/17 14:53 68 16 11/03/17 14:53 68 16 92 11/03/17 14:52 36.2 11/03/17 14:51 123/93 11/03/17 14:48 66 18 94 11/03/17 14:48 66 18 11/03/17 14:47 63 13 11/03/17 14:47 63 13 100/70 93 11/03/17 14:42 69 16 11/03/17 14:42 69 16 135/85 92 11/03/17 14:37 68 16 92 11/03/17 14:37 69 16 11/03/17 14:36 123/83 11/03/17 14:32 67 16 110/85 96 11/03/17 14:32 67 16 11/03/17 14:27 65 20 11/03/17 14:27 74 20 148/74 98 11/03/17 14:23 117/75 11/03/17 14:22 67 16 11/03/17 14:22 66 16 96 11/03/17 14:21 65 16 11/03/17 14:21 65 16 97 11/03/17 14:17 136/71 11/03/17 14:16 63 16 11/03/17 14:16 63 16 95 11/03/17 14:14 111/83 11/03/17 14:11 64 16 96 11/03/17 14:11 64 16 11/03/17 14:07 105/70 11/03/17 14:06 65 13 95 11/03/17 14:06 65 13 11/03/17 14:02 112/86 11/03/17 14:01 63 11 98 11/03/17 14:01 63 11 11/03/17 13:57 122/76 11/03/17 13:56 61 17 100 11/03/17 13:56 61 17 11/03/17 13:52 133/80 11/03/17 13:51 72 17 95 11/03/17 13:51 66 17 11/03/17 13:47 134/85 11/03/17 13:46 36.3 71 16 134/85 99 Oxymask 10 11/03/17 09:00 36.4 56 20 122/87 96 Room Air Physical Exam General Appearance: WD/WN, no apparent distress ENT: hearing grossly normal Respiratory/Chest: lungs clear, normal breath sounds, no respiratory distress, no accessory muscle use Cardiovascular: regular rate, rhythm, no edema, no murmur Extremities: normal inspection, no pedal edema Neurologic/Psychiatric: + pertinent finding (+resting tremor) Laboratory Results Last 24 Hours Test 11/03/17 12:31 11/04/17 06:00 Hemoglobin 10.3 g/dL 9.5 g/dL Hematocrit 32.3 % 29.4 % White Blood Count 8.05 K/uL Red Blood Count 3.17 M/uL Mean Corpuscular Volume 92.7 fL Mean Corpuscular Hemoglobin 30.0 pg Mean Corpuscular Hemoglobin Concent 32.3 g/dl Platelet Count 133 K/uL Mean Platelet Volume 10.0 fL Neutrophils (%) (Auto) 74.4 % Lymphocytes (%) (Auto) 15.5 % Monocytes (%) (Auto) 9.3 % Eosinophils (%) (Auto) 0.1 % Basophils (%) (Auto) 0.1 % Neutrophils # (Auto) 5.98 K/uL Lymphocytes # (Auto) 1.25 K/uL Monocytes # (Auto) 0.75 K/uL Eosinophils # (Auto) 0.01 K/uL Basophils # (Auto) 0.01 K/uL RDW Standard Deviation 56.2 fL RDW Coefficient of Variation 16.6 % Immature Granulocyte % (Auto) 0.6 % Immature Granulocyte # (Auto) 0.05 K/uL Nucleated RBC Absolute Count (auto) 0.02 K/uL Nucleated Red Blood Cells % 0.2 % Sodium Level 141 mmol/L Potassium Level 4.3 mmol/L Chloride Level 112 mmol/L Carbon Dioxide Level 21 mmol/L Anion Gap 9.0 mmol/L Blood Urea Nitrogen 10 mg/dl Creatinine 0.64 mg/dl Est Creatinine Clear Calc Drug Dose 122.8 ml/min Estimated GFR () 115.6 Estimated GFR (Non- 99.8 BUN/Creatinine Ratio 15.2 Random Glucose 95 mg/dl Calcium Level 7.9 mg/dl Assessment and Plan This is a 56 year old female with a PMH of adrenal insufficiency on long-term steroid use, CAD s/p stent x1, hypothyroidism, hx. of gastric bypass - presents for lumbar surgery Lumbar Decompression/Fusion s/p removal of hardware and fusion of T10-S1 doing well today plan for PT/OT Expected Acute Blood Loss Anemia Hgb down from 10 to 9 stable monitor H/H CAD s/p stenting x1 No anginal symptoms continue statin, aspirin for now, continue b-diony, but will monitor blood pressure prior to dose COPD Respiratory status stable Incentive spirometry Continue usual inhalers PEPPER on nocturnal CPAP Adrenal Insufficiency On chronic steroid therapy for adrenal insufficiency as well as arthritis/ fibromyalgia patient takes 5mg of prednisone Hemodynamically stable Hypothyroidism continue Synthroid Morbid Obesity Fibromyalgia continue home medications DVT ppx as per ortho FULL CODE
[2017-11-04] MEDS ORDERED: HYDROCORTISONE 10 MG TAB PO SCH (09:00)
[2017-11-04 10:20] VITALS: BP 97/59; PULSE 79; TEMP 36.7; O2SAT 91
[2017-11-04] MEDS: HYDROmorphone INJ 0.5 MG/0.5 ML SYR IV PRN (12:51)
[2017-11-04 15:55] VITALS: BP 109/72; PULSE 76; TEMP 36.9; O2SAT 98
[2017-11-04] MEDS ORDERED: NURSING VERBAL MED ORDER ONE (17:15)
[2017-11-04] MEDS: PROPRANOLOL HCL 60 MG LA CAP PO SCH (22:22)
[2017-11-04] MEDS: DULOXETINE HCL 20 MG CAP PO SCH (22:22)
[2017-11-04] MEDS: DOCUSATE SODIUM/SENNA 50/8.6MG TAB PO SCH (22:22)
[2017-11-04] MEDS: ATORVASTATIN 40 MG TAB PO SCH (22:22)
[2017-11-04] MEDS: TRAZODONE HCL 50 MG TAB PO SCH (22:24)
[2017-11-04 23:12] VITALS: BP 101/67; PULSE 86; TEMP 36.7; O2SAT 97
[2017-11-05] VITALS (10 sets, daily range): BP systolic 90–119; BP diastolic 58–78; PULSE 68–80; TEMP 36.7–37.1; O2SAT 92–97
[2017-11-05] MEDS: OXYCODONE HCL IR 5 MG TAB (IMMEDIATE RELEASE) PO PRN ×4 (01:40→21:22)
[2017-11-05] MEDS: HYDROmorphone INJ 0.5 MG/0.5 ML SYR IV PRN (03:18)
[2017-11-05] MEDS: LEVOTHYROXINE 125 MCG TAB PO SCH (05:41)
[2017-11-05] MEDS: ALBUTEROL HFA 8 GM INHALER INH SCH ×4 (05:41→23:46)
[2017-11-05] MEDS: POLYETHYLENE (MIRALAX) 17 GM PACK PO SCH ×4 (05:41→23:46)
[2017-11-05 06:58] LABS: HEMATOCRIT 26.4 % (37-47); HEMOGLOBIN 8.7 g/dL (12.0-16.0); MEAN CELL VOLUME 90.7 fL (80-100); MEAN CORPUSCULAR HEMOGLOBIN 29.9 pg (25-34); MEAN PLATELET VOLUME 9.3 fL (7.4-10.4); NUCLEATED RED BLOOD CELL ABS 0.02 K/uL (0-0); PLATELET COUNT 164 K/uL (130-400); RED CELL DISTRIBUTION WIDTH SD 53.5 fL (36.4-46.3); WHITE BLOOD COUNT 8.57 K/uL (4.8-10.8)
[2017-11-05 07:33] LABS: CALCIUM 7.7 mg/dl (8.5-10.1); CREATININE 0.73 mg/dl (0.60-1.20); POTASSIUM 3.1 mmol/L (3.5-5.1)
[2017-11-05] MEDS: FLUTICASONE PROPIONATE NA SPR 16 GM BTL SCH (09:03)
[2017-11-05] MEDS: ASPIRIN 81 MG ECTAB PO SCH (09:03)
[2017-11-05] MEDS: PREGABALIN 100 MG CAP PO SCH ×2 (09:04→21:11)
[2017-11-05] MEDS ORDERED: POTASSIUM CHLORIDE 20 MEQ TABCR PO ONE (09:15)
[2017-11-05] MEDS: TOPIRAMATE 100 MG TAB PO SCH ×2 (09:49→21:16)
[2017-11-05] MEDS: BuPROPion SR 150 MG TABCR PO SCH ×2 (09:49→21:15)
[2017-11-05] MEDS: PANTOprazole SOD 40 MG TAB PO SCH ×2 (09:49→21:17)
--- NOTE | 2017-11-05 11:35 | Progress Note ---
Progress Note Date of Service Nov 05, 2017. Progress Note Patient's back pain is controlled. Leg pain improved. Vital signs stable. On exam she is in the chair at the bedside. Is good strength testing. Assessment status post thoracal lumbar fusion per plan at this time we will maintain the TASHA drain. We will continue physical therapy. We will look towards rehab in the next few days.
--- NOTE | 2017-11-05 18:20 | Progress Note ---
Subjective Date of Service: Nov 05, 2017. Subjective Pt evaluation today including: conversation w/ patient, physical exam, lab review, review of studies, review of inpatient medication list Saw/examined the patient in room 311 back pain persists unfortunately, could not receive her pain medications today due to hypotension, but did receive it this afternoon good PO intake, no nausea/vomiting/diarrhea Review of Systems Respiratory: No shortness of breath Cardiac: No chest pain Abdomen: No pain, No nausea, No vomiting, No diarrhea Musculoskeletal: + see HPI, + joint pain Medications Current Inpatient Medications Medications (Trade) Dose Ordered Sig/Estephania Route Start Time Stop Time Status Last Admin Dose Admin Promethazine HCl 12.5 mg/Sodium Chloride 50.5 ml @ 202 mls/hr Q6H PRN IV 11/03/17 13:30 12/03/17 13:29 Ondansetron HCl (Zofran Inj) 4 mg Q6H PRN IV 11/03/17 13:30 12/03/17 13:29 Metoclopramide HCl (Reglan Inj) 10 mg Q6H PRN IV 11/03/17 13:30 12/03/17 13:29 Lorazepam (Ativan Tab) 0.5 mg Q8H PRN PO 11/03/17 13:30 12/03/17 13:29 Lorazepam 0.5 mg/ Syringe 0.25 ml @ 1 mls/min Q8H PRN IV 11/03/17 13:30 12/03/17 13:29 Pneumococcal Polysaccharide Vaccine 1 ea PRN PRN N/A 11/03/17 13:30 12/03/17 13:29 Influenza Virus Vacc Triv Types A&B 1 ea PRN PRN N/A 11/03/17 13:30 12/03/17 13:29 Polyethylene (Miralax Powder Packet) 17 gm Q6 PO 11/05/17 06:00 12/05/17 05:59 11/05/17 13:36 17 GM Bisacodyl (Dulcolax Supp) 10 mg DAILY PRN [place] 11/03/17 13:30 12/03/17 13:29 Magnesium Hydroxide (Milk Of Magnesia Susp) 30 ml DAILY PRN PO 11/03/17 13:30 12/03/17 13:29 Hydromorphone HCl (Dilaudid Inj) 0.5 mg Q3H PRN IV 11/04/17 06:00 11/18/17 05:59 11/05/17 03:18 0.5 MG Oxycodone HCl (Roxicodone Immediate Rel Tab) 5-10mg prn moderate to sev... Q4H PRN PO 11/04/17 06:00 11/18/17 05:59 11/05/17 17:03 10 MG Acetaminophen (Tylenol Tab) 1,000 mg Q8H PRN PO 11/03/17 13:30 12/03/17 13:29 11/05/17 16:33 1,000 MG Acetaminophen 100 ml @ 400 mls/hr Q8H PRN IV 11/03/17 13:30 12/03/17 13:29 Naloxone HCl (Narcan Inj) 0.1 mg Q5M PRN IV 11/03/17 13:30 12/03/17 13:29 Senna/Docusate Sodium (Senokot S Tab) 2 tab HS PO 11/03/17 21:00 12/03/17 20:59 11/04/17 22:22 2 TAB Sodium Biphosphate/ Sodium Phosphate (Fleet Enema) 132 ml ONE PRN [place] 11/03/17 13:30 12/03/17 13:29 Hydroxyzine HCl (Vistaril Tab) 25 mg Q8H PRN PO 11/03/17 13:30 12/03/17 13:29 Al Hydroxide/Mg Hydroxide (Maalox Susp) 30 ml Q6H PRN PO 11/03/17 13:30 12/03/17 13:29 Famotidine (Pepcid Tab) 20 mg Q12 PRN PO 11/03/17 13:30 12/03/17 13:29 Diphenhydramine HCl (Benadryl Cap) 25 mg Q6H PRN PO 11/03/17 13:30 12/03/17 13:29 11/05/17 00:33 25 MG Albuterol (Ventolin Hfa Inhaler) 2 puffs Q6 INH 11/03/17 18:00 12/03/17 17:59 11/05/17 09:03 2 PUFFS Aspirin (Ecotrin Tab) 81 mg QAM PO 11/04/17 09:00 12/04/17 08:59 11/05/17 09:03 81 MG Atorvastatin Calcium (Lipitor Tab) 80 mg QPM PO 11/03/17 21:00 12/03/17 20:59 11/04/17 22:22 80 MG Bupropion HCl (Wellbutrin-Sr Tab) 150 mg BID PO 11/03/17 21:00 12/03/17 20:59 11/05/17 09:49 150 MG Duloxetine HCl (Cymbalta Cap) 20 mg HS PO 11/03/17 21:00 12/03/17 20:59 11/04/17 22:22 20 MG Fluticasone Propionate (Flonase Nasal [place]) 2 sprays QAM NA 11/04/17 09:00 12/04/17 08:59 11/05/17 09:03 2 SPRAYS Lamotrigine (Lamictal Tab) 75 mg HS PO 11/03/17 21:00 12/03/17 20:59 11/04/17 22:23 75 MG Levothyroxine Sodium (Synthroid Tab) 125 mcg DAILYBB PO 11/04/17 06:00 12/04/17 05:59 11/05/17 05:41 125 MCG Nitroglycerin (Nitrostat Tab) 0.4 mg PRN [place] 11/03/17 13:30 12/03/17 13:29 Pregabalin (Lyrica Cap) 200 mg BID PO 11/03/17 21:00 12/03/17 20:59 11/05/17 09:04 200 MG Propranolol HCl (Inderal [place]) 60 mg HS PO 11/03/17 21:00 12/03/17 20:59 11/04/17 22:22 60 MG Topiramate (Topamax Tab) 100 mg BID PO 11/03/17 21:00 12/03/17 20:59 11/05/17 09:49 100 MG Trazodone HCl (Desyrel Tab) 25 mg HS PO 11/03/17 21:00 12/03/17 20:59 11/04/17 22:24 25 MG Pantoprazole Sodium (Protonix Tab) 40 mg BID PO 11/03/17 21:00 12/03/17 20:59 11/05/17 09:49 40 MG Hydromorphone HCl (Dilaudid Inj) 1 mg Q3H PRN IV 11/03/17 15:45 11/17/17 15:44 11/04/17 17:50 1 MG Prednisone (PredniSONE TAB) 5 mg DAILY PO 11/04/17 09:00 12/04/17 08:59 11/05/17 09:04 5 MG Objective Vital Signs Date Time Temp Pulse Resp B/P (MAP) Pulse Ox O2 Delivery O2 Flow Rate FiO2 11/05/17 16:55 117/76 (90) 11/05/17 15:29 36.9 74 16 90/59 (69) 92 11/05/17 11:47 95 Room Air 11/05/17 11:07 37.1 72 20 91/63 (72) 94 Room Air 11/05/17 10:31 97 Nasal Cannula 4.0 11/05/17 08:14 36.8 70 16 97 Room Air 11/05/17 07:56 92/58 (69) 11/05/17 07:50 Room Air 11/04/17 23:15 CPAP 11/04/17 23:12 36.7 86 16 101/67 (78) 97 CPAP 11/04/17 22:29 4.0 Physical Exam General Appearance: no apparent distress Respiratory/Chest: no respiratory distress, no accessory muscle use Cardiovascular: regular rate, rhythm, no edema, no murmur Extremities: normal inspection, no pedal edema Laboratory Results Last 24 Hours Test 11/05/17 06:04 White Blood Count 8.57 K/uL Red Blood Count 2.91 M/uL Hemoglobin 8.7 g/dL Hematocrit 26.4 % Mean Corpuscular Volume 90.7 fL Mean Corpuscular Hemoglobin 29.9 pg Mean Corpuscular Hemoglobin Concent 33.0 g/dl RDW Standard Deviation 53.5 fL RDW Coefficient of Variation 16.0 % Platelet Count 164 K/uL Mean Platelet Volume 9.3 fL Nucleated RBC Absolute Count (auto) 0.02 K/uL Nucleated Red Blood Cells % 0.2 % Sodium Level 138 mmol/L Potassium Level 3.1 mmol/L Chloride Level 106 mmol/L Carbon Dioxide Level 25 mmol/L Anion Gap 7.0 mmol/L Blood Urea Nitrogen 9 mg/dl Creatinine 0.73 mg/dl Est Creatinine Clear Calc Drug Dose 107.6 ml/min Estimated GFR () 106.7 Estimated GFR (Non- 92.1 BUN/Creatinine Ratio 12.1 Random Glucose 121 mg/dl Calcium Level 7.7 mg/dl Assessment and Plan This is a 56 year old female with a PMH of adrenal insufficiency on long-term steroid use, CAD s/p stent x1, hypothyroidism, hx. of gastric bypass - presents for lumbar surgery Lumbar Decompression/Fusion s/p removal of hardware and fusion of T10-S1 doing well today plan for PT/OT plan for discharge to rehab on November 08 Expected Acute Blood Loss Anemia Hgb down from 10 to 9 stable monitor H/H CAD s/p stenting x1 No anginal symptoms continue statin, aspirin for now, continue b-diony, but will monitor blood pressure prior to dose COPD Respiratory status stable Incentive spirometry Continue usual inhalers PEPPER on nocturnal CPAP Adrenal Insufficiency On chronic steroid therapy for adrenal insufficiency as well as arthritis/ fibromyalgia patient takes 5mg of prednisone Hemodynamically stable Hypothyroidism continue Synthroid Morbid Obesity Fibromyalgia continue home medications DVT ppx as per ortho FULL CODE
[2017-11-05] MEDS: DULOXETINE HCL 20 MG CAP PO SCH (21:12)
[2017-11-05] MEDS: PROPRANOLOL HCL 60 MG LA CAP PO SCH (21:14)
[2017-11-05] MEDS: ATORVASTATIN 40 MG TAB PO SCH (21:15)
[2017-11-05] MEDS: DOCUSATE SODIUM/SENNA 50/8.6MG TAB PO SCH (21:15)
[2017-11-05] MEDS: TRAZODONE HCL 50 MG TAB PO SCH (21:18)
[2017-11-06] MEDS: OXYCODONE HCL IR 5 MG TAB (IMMEDIATE RELEASE) PO PRN ×4 (04:53→18:38)
[2017-11-06] MEDS: POLYETHYLENE (MIRALAX) 17 GM PACK PO SCH ×3 (06:00→17:39)
[2017-11-06] MEDS: ALBUTEROL HFA 8 GM INHALER INH SCH ×3 (06:03→17:38)
[2017-11-06] MEDS: LEVOTHYROXINE 125 MCG TAB PO SCH (06:03)
[2017-11-06 06:42] LABS: CALCIUM 7.8 mg/dl (8.5-10.1); CREATININE 0.56 mg/dl (0.60-1.20); POTASSIUM 3.3 mmol/L (3.5-5.1)
[2017-11-06 07:04] VITALS: BP 134/69; PULSE 67; TEMP 36.5; O2SAT 96
[2017-11-06] MEDS ORDERED: RXC5 PO (08:59)
--- NOTE | 2017-11-06 08:59 | Discharge Instructions ---
Discharge Instructions Date of Service Nov 06, 2017. Admission Reason for Admission: Spinal Stenosis Discharge Discharge Diagnosis / Problem: lumbar stenosis Discharge Goals Goal(s): Improve function Activity Recommendations Activity Limitations: per Instructions/Follow-up section . Instructions / Follow-Up Instructions / Follow-Up ACTIVITY RECOMMENDATIONS: SELF CARE INSTRUCTIONS AFTER THORACIC/LUMBAR FUSIONS 1. You may walk to your tolerance. It is good exercise for your legs and back. Expect some back and intermittent leg aches and pains. 2. You may perform "counter-top" level activities (make a sandwich, devon with a project, etc.). 3. No bending or lifting of more than 10 pounds or back twisting of any nature (roll like a log when turning in bed). 4. You may ride in a car for 20-30 minutes at a time. No driving until after your first visit with your doctor. 5. Frequent changes of position and restricting sitting to 30 minutes at a time will help limit the amount of back spasms and stiffness you may experience. 6. You may discontinue the use of ambulatory aids (cane, crutches, etc.) once your strength and confidence allow. 7. You may distributor advertising material the shower and let water strike your incision when you arrive home at least once daily. Do not take a tub bath, sit in a hot tub or go into a swimming pool until after your first recheck in the office. SPECIAL CARE INSTRUCTIONS: VERY IMPORTANT TO READ AND REVIEW A. Your surgical incision has been closed with a cosmetic suture under the skin that will dissolve in about 6 weeks. In 14 days, you can use a pair of clean scissors and cut the suture that is left outside of the skin at the ends of your incision. 1. The small skin tapes can be removed 7 days after surgery if they have not fallen off by that point. 2. You may keep the wound open to air as much as possible to promote healing after post-op day number 5 unless told otherwise by your doctor. 3. If you think the wound looks like it is becoming infected (redness or worsening drainage) and/or you are experiencing fever, chill or worsening back pain and muscle spasms, contact the office so that we may evaluate you as soon as possible. B. Complications are uncommon, but please contact us if you have any signs or symptoms of: 1. wound infection (fever higher than 102.5 degrees F, redness, separation of wound, drainage, or increasing pain from the incision) 2. blood clots in legs (pain, swelling, redness and warmth in legs) 3. urinary tract infection (fever higher than 102.5 degrees F, burning upon urination or increased frequency of urination) 4. nerve problems (inability to walk on your toes or heels, numbness, loss of bowel or bladder control) 5. any other symptoms that concern you C. Please call the office at if you have any concerns or questions about your operation or recovery. D. No smoking! Smoking drastically decreases the chance of a solid fusion. E. Do not take any anti-inflammatory medications (Indocin, Advil, Motrin, Aspirin, Naprosyn, etc.) as these may inhibit the chance of a solid fusion. Tylenol is okay to take for pain. MANAGING PAIN AFTER SPINAL SURGERY 1. Narcotic medication is intended for short-term use and will be provided for surgical pain. Surgical pain usually lasts for a period of 4-6 weeks. Narcotic medication includes Percocet, Vicodin, Darvocet, Tylenol #3 or Lortab. 2. Longer-term pain is more appropriately treated with non-narcotic medication such as Tylenol ES. 3. Muscle spasm is not appropriately treated with narcotics. Muscle relaxers such as Soma, Flexeril or Skelaxin can be used along with Tylenol ES. 4. Remember that we all live with some "aches and pains". This is not unusual or uncommon after an injury or as we get older. a. Back pain is expected and may include muscle spasms for 4 to 6 weeks after surgery. The pain should gradually improve. If the pain worsens for no apparent reason, please contact the office. b. Intermittent leg pain may also be experienced and should not be concerned about unless it worsens for no apparent reason. If so, please contact the office. 5. We will provide appropriate medication within the normal guidelines of their prescribed use. We will also be very cautious and aware of potential abuse and extended duration of patients' medication needs. a. Pain medications are for your comfort and to assist with sleep and rest so that the tissue can heal. They are not provided in order to return to normal activity and should not be used through the day. To do so or worsening pain at night can result from ongoing tissue damage and development of tolerance to the prescribed medicine. 6. Please allow 2-3 days to process refills. Prescriptions will not be mailed but must be picked up at the office. FOLLOW UP VISIT: Keep your scheduled follow-up appointment. Any questions, please call the office at . Current Hospital Diet Patient's current hospital diet: Regular Diet Discharge Diet Recommended Diet: Regular Diet Procedures Procedures Performed: L4-L5, L5-S1 Removal of Hardware; L1-L4 Decompression. T10-S1 Fusion including bilateral Iliac Bolts; Application of Bone Morphogenetic Protein, Application of Osteoamp Pending Studies Studies pending at discharge: no Medical Emergencies . Who to Call and When: Medical Emergencies: If at any time you feel your situation is an emergency, please call 911 immediately. . Non-Emergent Contact Non-Emergency issues call your: Primary Care Provider . "Provider Documentation" section prepared by Domingo Juan. . VTE Core Measure Inpt VTE Proph given/why not?: Roque Chao, SCD's
--- NOTE | 2017-11-06 09:03 | Progress Note ---
Progress Note Date of Service Nov 06, 2017. Progress Note Patient's back pain is controlled. Leg symptoms markedly improved. Vital signs stable. TASHA drain decreasing. On exam she's good strength testing appears comfortable. Assessment status post thoracal lumbar fusion. Plan at this time will continue physical therapy throughout the weekend and anticipate discharge to rehabilitation on Wednesday.
[2017-11-06] MEDS: PANTOprazole SOD 40 MG TAB PO SCH ×2 (09:17→21:37)
[2017-11-06] MEDS: TOPIRAMATE 100 MG TAB PO SCH ×2 (09:17→21:36)
[2017-11-06] MEDS: BuPROPion SR 150 MG TABCR PO SCH ×2 (09:17→21:36)
[2017-11-06] MEDS: FLUTICASONE PROPIONATE NA SPR 16 GM BTL SCH (09:18)
[2017-11-06] MEDS: ASPIRIN 81 MG ECTAB PO SCH (09:18)
[2017-11-06] MEDS: PREGABALIN 100 MG CAP PO SCH ×2 (10:08→21:37)
[2017-11-06 15:06] VITALS: BP 84/53; PULSE 76; TEMP 36.5; O2SAT 94
[2017-11-06 15:17] VITALS: BP 91/59
[2017-11-06] MEDS ORDERED: POTASSIUM CHLORIDE 20 MEQ TABCR PO ONE (16:00)
--- NOTE | 2017-11-06 16:40 | Progress Note ---
Subjective Date of Service: Nov 06, 2017. Subjective Pt evaluation today including: conversation w/ patient, physical exam, lab review, review of studies, review of inpatient medication list Saw/examined the patient in room 311 She's doing well pain improved with medications no other issues at this time Review of Systems Respiratory: No shortness of breath Cardiac: No chest pain Musculoskeletal: + see HPI, + joint pain (back pain, improved with medications) Medications Current Inpatient Medications Medications (Trade) Dose Ordered Sig/Estephania Route Start Time Stop Time Status Last Admin Dose Admin Promethazine HCl 12.5 mg/Sodium Chloride 50.5 ml @ 202 mls/hr Q6H PRN IV 11/03/17 13:30 12/03/17 13:29 Ondansetron HCl (Zofran Inj) 4 mg Q6H PRN IV 11/03/17 13:30 12/03/17 13:29 Metoclopramide HCl (Reglan Inj) 10 mg Q6H PRN IV 11/03/17 13:30 12/03/17 13:29 Lorazepam (Ativan Tab) 0.5 mg Q8H PRN PO 11/03/17 13:30 12/03/17 13:29 11/05/17 23:46 0.5 MG Lorazepam 0.5 mg/ Syringe 0.25 ml @ 1 mls/min Q8H PRN IV 11/03/17 13:30 12/03/17 13:29 Pneumococcal Polysaccharide Vaccine 1 ea PRN PRN N/A 11/03/17 13:30 12/03/17 13:29 Influenza Virus Vacc Triv Types A&B 1 ea PRN PRN N/A 11/03/17 13:30 12/03/17 13:29 Polyethylene (Miralax Powder Packet) 17 gm Q6 PO 11/05/17 06:00 12/05/17 05:59 11/06/17 12:49 17 GM Bisacodyl (Dulcolax Supp) 10 mg DAILY PRN ID 11/03/17 13:30 12/03/17 13:29 Magnesium Hydroxide (Milk Of Magnesia Susp) 30 ml DAILY PRN PO 11/03/17 13:30 12/03/17 13:29 Hydromorphone HCl (Dilaudid Inj) 0.5 mg Q3H PRN IV 11/04/17 06:00 11/18/17 05:59 11/05/17 03:18 0.5 MG Oxycodone HCl (Roxicodone Immediate Rel Tab) 5-10mg prn moderate to sev... Q4H PRN PO 11/04/17 06:00 11/18/17 05:59 11/06/17 14:05 10 MG Acetaminophen (Tylenol Tab) 1,000 mg Q8H PRN PO 11/03/17 13:30 12/03/17 13:29 11/05/17 16:33 1,000 MG Acetaminophen 100 ml @ 400 mls/hr Q8H PRN IV 11/03/17 13:30 12/03/17 13:29 Naloxone HCl (Narcan Inj) 0.1 mg Q5M PRN IV 11/03/17 13:30 12/03/17 13:29 Senna/Docusate Sodium (Senokot S Tab) 2 tab HS PO 11/03/17 21:00 12/03/17 20:59 11/05/17 21:15 2 TAB Sodium Biphosphate/ Sodium Phosphate (Fleet Enema) 132 ml ONE PRN ID 11/03/17 13:30 12/03/17 13:29 Hydroxyzine HCl (Vistaril Tab) 25 mg Q8H PRN PO 11/03/17 13:30 12/03/17 13:29 Al Hydroxide/Mg Hydroxide (Maalox Susp) 30 ml Q6H PRN PO 11/03/17 13:30 12/03/17 13:29 Famotidine (Pepcid Tab) 20 mg Q12 PRN PO 11/03/17 13:30 12/03/17 13:29 Diphenhydramine HCl (Benadryl Cap) 25 mg Q6H PRN PO 11/03/17 13:30 12/03/17 13:29 11/05/17 00:33 25 MG Albuterol (Ventolin Hfa Inhaler) 2 puffs Q6 INH 11/03/17 18:00 12/03/17 17:59 11/06/17 12:49 2 PUFFS Aspirin (Ecotrin Tab) 81 mg QAM PO 11/04/17 09:00 12/04/17 08:59 11/06/17 09:18 81 MG Atorvastatin Calcium (Lipitor Tab) 80 mg QPM PO 11/03/17 21:00 12/03/17 20:59 11/05/17 21:15 80 MG Bupropion HCl (Wellbutrin-Sr Tab) 150 mg BID PO 11/03/17 21:00 12/03/17 20:59 11/06/17 09:17 150 MG Duloxetine HCl (Cymbalta Cap) 20 mg HS PO 11/03/17 21:00 12/03/17 20:59 11/05/17 21:12 20 MG Fluticasone Propionate (Flonase Nasal [place]) 2 sprays QAM NA 11/04/17 09:00 12/04/17 08:59 11/06/17 09:18 2 SPRAYS Lamotrigine (Lamictal Tab) 75 mg HS PO 11/03/17 21:00 12/03/17 20:59 11/05/17 21:13 75 MG Levothyroxine Sodium (Synthroid Tab) 125 mcg DAILYBB PO 11/04/17 06:00 12/04/17 05:59 11/06/17 06:03 125 MCG Nitroglycerin (Nitrostat Tab) 0.4 mg PRN [place] 11/03/17 13:30 12/03/17 13:29 Pregabalin (Lyrica Cap) 200 mg BID PO 11/03/17 21:00 12/03/17 20:59 11/06/17 10:08 200 MG Propranolol HCl (Inderal La Cap) 60 mg HS PO 11/03/17 21:00 12/03/17 20:59 11/05/17 21:14 60 MG Topiramate (Topamax Tab) 100 mg BID PO 11/03/17 21:00 12/03/17 20:59 11/06/17 09:17 100 MG Trazodone HCl (Desyrel Tab) 25 mg HS PO 11/03/17 21:00 12/03/17 20:59 11/05/17 21:18 25 MG Pantoprazole Sodium (Protonix Tab) 40 mg BID PO 11/03/17 21:00 12/03/17 20:59 11/06/17 09:17 40 MG Hydromorphone HCl (Dilaudid Inj) 1 mg Q3H PRN IV 11/03/17 15:45 11/17/17 15:44 11/04/17 17:50 1 MG Prednisone (PredniSONE TAB) 5 mg DAILY PO 11/04/17 09:00 12/04/17 08:59 11/06/17 09:17 5 MG Objective Vital Signs Date Time Temp Pulse Resp B/P (MAP) Pulse Ox O2 Delivery O2 Flow Rate FiO2 11/06/17 15:20 Room Air 11/06/17 15:17 91/59 (70) 11/06/17 15:06 36.5 76 18 84/53 (63) 94 Room Air 11/06/17 07:50 Room Air 11/06/17 07:04 36.5 67 16 134/69 (90) 96 Nasal Cannula 2.0 11/05/17 23:40 97 Room Air 2.0 93 Nasal Cannula 11/05/17 23:25 36.7 68 18 119/70 (86) 97 Nasal Cannula 2.0 11/05/17 21:30 Nasal Cannula 2.0 11/05/17 21:14 80 118/78 (91) 11/05/17 16:55 117/76 (90) Physical Exam General Appearance: no apparent distress Respiratory/Chest: no respiratory distress, no accessory muscle use Cardiovascular: regular rate, rhythm, no edema, no murmur Extremities: normal inspection, no pedal edema Neurologic/Psychiatric: no motor/sensory deficits, alert, normal mood/affect Laboratory Results Last 24 Hours Test 11/06/17 05:25 Sodium Level 140 mmol/L Potassium Level 3.3 mmol/L Chloride Level 107 mmol/L Carbon Dioxide Level 25 mmol/L Anion Gap 8.0 mmol/L Blood Urea Nitrogen 8 mg/dl Creatinine 0.56 mg/dl Est Creatinine Clear Calc Drug Dose 140.3 ml/min Estimated GFR () 120.8 Estimated GFR (Non- 104.2 BUN/Creatinine Ratio 13.8 Random Glucose 82 mg/dl Calcium Level 7.8 mg/dl Assessment and Plan This is a 56 year old female with a PMH of adrenal insufficiency on long-term steroid use, CAD s/p stent x1, hypothyroidism, hx. of gastric bypass - presents for lumbar surgery Lumbar Decompression/Fusion 11/06 doing well today, pain improved with medications plan to d/c to rehab as per ortho 11/05 s/p removal of hardware and fusion of T10-S1 doing well today plan for PT/OT plan for discharge to rehab on November 08 Expected Acute Blood Loss Anemia Hgb down from 10 to 9 stable monitor H/H CAD s/p stenting x1 No anginal symptoms continue statin, aspirin for now, continue b-diony, but will monitor blood pressure prior to dose COPD Respiratory status stable Incentive spirometry Continue usual inhalers PEPPER on nocturnal CPAP Adrenal Insufficiency On chronic steroid therapy for adrenal insufficiency as well as arthritis/ fibromyalgia patient takes 5mg of prednisone Hemodynamically stable Hypothyroidism continue Synthroid Morbid Obesity Fibromyalgia continue home medications DVT ppx as per ortho FULL CODE
[2017-11-06] MEDS: PROPRANOLOL HCL 60 MG LA CAP PO SCH (21:00)
[2017-11-06] MEDS: DULOXETINE HCL 20 MG CAP PO SCH (21:33)
[2017-11-06 21:35] VITALS: BP 95/57; PULSE 73
[2017-11-06] MEDS: DOCUSATE SODIUM/SENNA 50/8.6MG TAB PO SCH (21:36)
[2017-11-06] MEDS: ATORVASTATIN 40 MG TAB PO SCH (21:36)
[2017-11-06] MEDS: TRAZODONE HCL 50 MG TAB PO SCH (21:37)
[2017-11-06 23:19] VITALS: BP 104/72; PULSE 76; TEMP 36.5; O2SAT 96
[2017-11-07] MEDS: POLYETHYLENE (MIRALAX) 17 GM PACK PO SCH ×4 (00:28→18:00)
[2017-11-07] MEDS: ALBUTEROL HFA 8 GM INHALER INH SCH ×5 (00:28→23:41)
[2017-11-07] MEDS: OXYCODONE HCL IR 5 MG TAB (IMMEDIATE RELEASE) PO PRN ×5 (00:34→21:36)
[2017-11-07 05:59] LABS: HEMOGLOBIN 8.7 g/dL (12.0-16.0); MEAN CELL VOLUME 90.6 fL (80-100); MEAN CORPUSCULAR HEMOGLOBIN 30.3 pg (25-34); MEAN CORPUSCULAR HGB CONC 33.5 g/dl (32-36); MEAN PLATELET VOLUME 9.5 fL (7.4-10.4); PLATELET COUNT 200 K/uL (130-400); RED CELL DISTRIBUTION WIDTH CV 16.3 % (11.5-14.5); RED CELL DISTRIBUTION WIDTH SD 53.9 fL (36.4-46.3); WHITE BLOOD COUNT 6.28 K/uL (4.8-10.8)
[2017-11-07] MEDS: LEVOTHYROXINE 125 MCG TAB PO SCH (06:21)
[2017-11-07] MEDS: MAGNESIUM HYDROXIDE SUSP 30 ML UDC PO PRN (06:24)
[2017-11-07 06:36] LABS: CALCIUM 7.9 mg/dl (8.5-10.1); CREATININE 0.55 mg/dl (0.60-1.20); POTASSIUM 3.7 mmol/L (3.5-5.1)
[2017-11-07 07:30] VITALS: BP 95/63; PULSE 67; TEMP 36.5; O2SAT 95
--- NOTE | 2017-11-07 07:43 | Progress Note ---
Progress Note Date of Service Nov 07, 2017. Progress Note Patient was seen bedside status post thoracolumbar decompression and fusion. She had a decent night last night the pain is well controlled. She is not having pain rating down her legs. She walked over 250 feet with physical therapy yesterday. She has not yet had a bowel movement. She denies any rating pain going down her legs any other numbness, tingling, or paresthesias. On exam the patient is alert and oriented. Vital signs are stable. Dressings clean dry and intact. Calves are supple nontender. Abdomen soft and nontender. Strength and sensation are both intact. Assessment: Patient is stable at this point status post thoracal lumbar decompression. The patient is awaiting placement in [facility] facility. She needs to have a bowel movement for discharge will progress her bowel regimen at this point. She will continue physical therapy. We will continue pain control measures. We will see her in the morning to see if she is ready for discharge to [facility] facility. Test 10/26/17 00:00 11/04/17 06:00 11/05/17 06:04 11/06/17 05:25 Urine Color YELLOW Urine Appearance CLEAR Urine pH 6.0 Urine Specific [place] 1.010 Urine Protein NEG Urine Glucose (UA) NEG Urine Ketones NEG Urine Occult Blood NEG Urine Nitrite NEG Urine Bilirubin NEG Urine Urobilinogen NEG Urine Leukocyte Esterase NEG Immature Granulocyte % (Auto) 0.6 White Blood Count 8.05 8.57 Red Blood Count 3.17 2.91 Hemoglobin 9.5 8.7 Hematocrit 29.4 26.4 Mean Corpuscular Volume 92.7 90.7 Mean Corpuscular Hemoglobin 30.0 29.9 Mean Corpuscular Hemoglobin Concent 32.3 33.0 Platelet Count 133 164 Mean Platelet Volume 10.0 9.3 Neutrophils (%) (Auto) 74.4 Lymphocytes (%) (Auto) 15.5 Monocytes (%) (Auto) 9.3 Eosinophils (%) (Auto) 0.1 Basophils (%) (Auto) 0.1 Neutrophils # (Auto) 5.98 Lymphocytes # (Auto) 1.25 Monocytes # (Auto) 0.75 Eosinophils # (Auto) 0.01 Basophils # (Auto) 0.01 Immature Granulocyte # (Auto) 0.05 Nucleated RBC Absolute Count (auto) 0.02 0.02 Nucleated Red Blood Cells % 0.2 0.2 RDW Standard Deviation 53.5 RDW Coefficient of Variation 16.0 Sodium Level 140 Potassium Level 3.3 Chloride Level 107 Carbon Dioxide Level 25 Anion Gap 8.0 Blood Urea Nitrogen 8 Creatinine 0.56 Est Creatinine Clear Calc Drug Dose 140.3 Estimated GFR () 120.8 Estimated GFR (Non- 104.2 BUN/Creatinine Ratio 13.8 Random Glucose 82 Calcium Level 7.8 Test 11/07/17 05:21 White Blood Count 6.28 Red Blood Count 2.87 Hemoglobin 8.7 Hematocrit 26.0 Mean Corpuscular Volume 90.6 Mean Corpuscular Hemoglobin 30.3 Mean Corpuscular Hemoglobin Concent 33.5 RDW Standard Deviation 53.9 RDW Coefficient of Variation 16.3 Platelet Count 200 Mean Platelet Volume 9.5 Sodium Level 139 Potassium Level 3.7 Chloride Level 107 Carbon Dioxide Level 25 Anion Gap 7.0 Blood Urea Nitrogen 7 Creatinine 0.55 Est Creatinine Clear Calc Drug Dose 142.9 Estimated GFR () 121.5 Estimated GFR (Non- 104.9 BUN/Creatinine Ratio 12.0 Random Glucose 76 Calcium Level 7.9
[2017-11-07] MEDS: FLUTICASONE PROPIONATE NA SPR 16 GM BTL SCH (09:08)
[2017-11-07] MEDS: ASPIRIN 81 MG ECTAB PO SCH (09:08)
[2017-11-07] MEDS: BuPROPion SR 150 MG TABCR PO SCH ×2 (09:09→21:14)
[2017-11-07] MEDS: TOPIRAMATE 100 MG TAB PO SCH ×2 (09:09→21:14)
[2017-11-07] MEDS: PANTOprazole SOD 40 MG TAB PO SCH ×2 (09:09→21:13)
[2017-11-07] MEDS: PREGABALIN 100 MG CAP PO SCH ×2 (10:58→21:13)
[2017-11-07] MEDS ORDERED: DOCUSATE SODIUM 100 MG CAP PO SCH (14:00)
--- NOTE | 2017-11-07 14:21 | Progress Note ---
Subjective Date of Service: Nov 07, 2017. Subjective Pt evaluation today including: conversation w/ patient, physical exam, lab review, review of studies, review of inpatient medication list Saw/examined the patient in room 311 she's doing well tells me her pain is controlled; working with PT/OT no fevers/chills no BMs as of yet Review of Systems Constitutional: No fever, No chills Respiratory: No shortness of breath Cardiac: No chest pain Musculoskeletal: + joint pain (controlled with pain meds) Heme: No abnormal bleeding/bruising Medications Current Inpatient Medications Medications (Trade) Dose Ordered Sig/Estephania Route Start Time Stop Time Status Last Admin Dose Admin Promethazine HCl 12.5 mg/Sodium Chloride 50.5 ml @ 202 mls/hr Q6H PRN IV 11/03/17 13:30 12/03/17 13:29 Ondansetron HCl (Zofran Inj) 4 mg Q6H PRN IV 11/03/17 13:30 12/03/17 13:29 Metoclopramide HCl (Reglan Inj) 10 mg Q6H PRN IV 11/03/17 13:30 12/03/17 13:29 Lorazepam (Ativan Tab) 0.5 mg Q8H PRN PO 11/03/17 13:30 12/03/17 13:29 11/05/17 23:46 0.5 MG Lorazepam 0.5 mg/ Syringe 0.25 ml @ 1 mls/min Q8H PRN IV 11/03/17 13:30 12/03/17 13:29 Pneumococcal Polysaccharide Vaccine 1 ea PRN PRN N/A 11/03/17 13:30 12/03/17 13:29 Influenza Virus Vacc Triv Types A&B 1 ea PRN PRN N/A 11/03/17 13:30 12/03/17 13:29 Polyethylene (Miralax Powder Packet) 17 gm Q6 PO 11/05/17 06:00 12/05/17 05:59 11/07/17 06:20 17 GM Bisacodyl (Dulcolax Supp) 10 mg DAILY PRN [place] 11/03/17 13:30 12/03/17 13:29 Magnesium Hydroxide (Milk Of Magnesia Susp) 30 ml DAILY PRN PO 11/03/17 13:30 12/03/17 13:29 11/07/17 06:24 30 ML Hydromorphone HCl (Dilaudid Inj) 0.5 mg Q3H PRN IV 11/04/17 06:00 11/18/17 05:59 11/05/17 03:18 0.5 MG Oxycodone HCl (Roxicodone Immediate Rel Tab) 5-10mg prn moderate to sev... Q4H PRN PO 11/04/17 06:00 11/18/17 05:59 11/07/17 09:10 10 MG Acetaminophen (Tylenol Tab) 1,000 mg Q8H PRN PO 11/03/17 13:30 12/03/17 13:29 11/05/17 16:33 1,000 MG Acetaminophen 100 ml @ 400 mls/hr Q8H PRN IV 11/03/17 13:30 12/03/17 13:29 Naloxone HCl (Narcan Inj) 0.1 mg Q5M PRN IV 11/03/17 13:30 12/03/17 13:29 Senna/Docusate Sodium (Senokot S Tab) 2 tab HS PO 11/03/17 21:00 12/03/17 20:59 11/06/17 21:36 2 TAB Sodium Biphosphate/ Sodium Phosphate (Fleet Enema) 132 ml ONE PRN [place] 11/03/17 13:30 12/03/17 13:29 Hydroxyzine HCl (Vistaril Tab) 25 mg Q8H PRN PO 11/03/17 13:30 12/03/17 13:29 Al Hydroxide/Mg Hydroxide (Maalox Susp) 30 ml Q6H PRN PO 11/03/17 13:30 12/03/17 13:29 Famotidine (Pepcid Tab) 20 mg Q12 PRN PO 11/03/17 13:30 12/03/17 13:29 Diphenhydramine HCl (Benadryl Cap) 25 mg Q6H PRN PO 11/03/17 13:30 12/03/17 13:29 11/05/17 00:33 25 MG Albuterol (Ventolin Hfa Inhaler) 2 puffs Q6 INH 11/03/17 18:00 12/03/17 17:59 11/07/17 06:20 2 PUFFS Aspirin (Ecotrin Tab) 81 mg QAM PO 11/04/17 09:00 12/04/17 08:59 11/07/17 09:08 81 MG Atorvastatin Calcium (Lipitor Tab) 80 mg QPM PO 11/03/17 21:00 12/03/17 20:59 11/06/17 21:36 80 MG Bupropion HCl (Wellbutrin-Sr Tab) 150 mg BID PO 11/03/17 21:00 12/03/17 20:59 11/07/17 09:09 150 MG Duloxetine HCl (Cymbalta Cap) 20 mg HS PO 11/03/17 21:00 12/03/17 20:59 11/06/17 21:33 20 MG Fluticasone Propionate (Flonase Nasal [place]) 2 sprays QAM NA 11/04/17 09:00 12/04/17 08:59 11/07/17 09:08 2 SPRAYS Lamotrigine (Lamictal Tab) 75 mg HS PO 11/03/17 21:00 12/03/17 20:59 11/06/17 21:33 75 MG Levothyroxine Sodium (Synthroid Tab) 125 mcg DAILYBB PO 11/04/17 06:00 12/04/17 05:59 11/07/17 06:21 125 MCG Nitroglycerin (Nitrostat Tab) 0.4 mg PRN [place] 11/03/17 13:30 12/03/17 13:29 Pregabalin (Lyrica Cap) 200 mg BID PO 11/03/17 21:00 12/03/17 20:59 11/07/17 10:58 200 MG Propranolol HCl (Inderal La Cap) 60 mg HS PO 11/03/17 21:00 12/03/17 20:59 11/05/17 21:14 60 MG Topiramate (Topamax Tab) 100 mg BID PO 11/03/17 21:00 12/03/17 20:59 11/07/17 09:09 100 MG Trazodone HCl (Desyrel Tab) 25 mg HS PO 11/03/17 21:00 12/03/17 20:59 11/06/17 21:37 25 MG Pantoprazole Sodium (Protonix Tab) 40 mg BID PO 11/03/17 21:00 12/03/17 20:59 11/07/17 09:09 40 MG Hydromorphone HCl (Dilaudid Inj) 1 mg Q3H PRN IV 11/03/17 15:45 11/17/17 15:44 11/04/17 17:50 1 MG Prednisone (PredniSONE TAB) 5 mg DAILY PO 11/04/17 09:00 12/04/17 08:59 11/07/17 09:09 5 MG Docusate Sodium (coLACE CAP) 100 mg BID PO 11/07/17 21:00 12/07/17 20:59 Docusate Sodium (coLACE CAP) 100 mg TODAY@1400 PO 11/07/17 14:00 11/07/17 16:00 Objective Vital Signs Date Time Temp Pulse Resp B/P (MAP) Pulse Ox O2 Delivery O2 Flow Rate FiO2 11/07/17 09:12 Room Air 11/07/17 07:30 36.5 67 14 95/63 (74) 95 Room Air 11/07/17 00:24 Room Air 11/06/17 23:19 36.5 76 16 104/72 (83) 96 Room Air 11/06/17 21:35 73 95/57 (70) 11/06/17 15:20 Room Air 11/06/17 15:17 91/59 (70) 11/06/17 15:06 36.5 76 18 84/53 (63) 94 Room Air Physical Exam General Appearance: no apparent distress, + obese Respiratory/Chest: no respiratory distress, no accessory muscle use Extremities: normal inspection, no pedal edema Neurologic/Psychiatric: no motor/sensory deficits, alert, normal mood/affect Laboratory Results Last 24 Hours Test 11/07/17 05:21 White Blood Count 6.28 K/uL Red Blood Count 2.87 M/uL Hemoglobin 8.7 g/dL Hematocrit 26.0 % Mean Corpuscular Volume 90.6 fL Mean Corpuscular Hemoglobin 30.3 pg Mean Corpuscular Hemoglobin Concent 33.5 g/dl RDW Standard Deviation 53.9 fL RDW Coefficient of Variation 16.3 % Platelet Count 200 K/uL Mean Platelet Volume 9.5 fL Sodium Level 139 mmol/L Potassium Level 3.7 mmol/L Chloride Level 107 mmol/L Carbon Dioxide Level 25 mmol/L Anion Gap 7.0 mmol/L Blood Urea Nitrogen 7 mg/dl Creatinine 0.55 mg/dl Est Creatinine Clear Calc Drug Dose 142.9 ml/min Estimated GFR () 121.5 Estimated GFR (Non- 104.9 BUN/Creatinine Ratio 12.0 Random Glucose 76 mg/dl Calcium Level 7.9 mg/dl Assessment and Plan This is a 56 year old female with a PMH of adrenal insufficiency on long-term steroid use, CAD s/p stent x1, hypothyroidism, hx. of gastric bypass - presents for lumbar surgery Lumbar Decompression/Fusion 11/07 continue pain medications as per ortho extra dose of Colace now plan to d/c to rehab in AM uses prednisone 5mg daily 11/06 doing well today, pain improved with medications plan to d/c to rehab as per ortho 11/05 s/p removal of hardware and fusion of T10-S1 doing well today plan for PT/OT plan for discharge to rehab on November 08 Expected Acute Blood Loss Anemia Hgb down from 10 to 9 stable monitor H/H CAD s/p stenting x1 No anginal symptoms continue statin, aspirin for now, continue b-diony, but will monitor blood pressure prior to dose COPD Respiratory status stable Incentive spirometry Continue usual inhalers PEPPER on nocturnal CPAP Adrenal Insufficiency On chronic steroid therapy for adrenal insufficiency as well as arthritis/ fibromyalgia patient takes 5mg of prednisone Hemodynamically stable Hypothyroidism continue Synthroid Morbid Obesity Fibromyalgia continue home medications DVT ppx as per ortho FULL CODE
[2017-11-07 14:52] VITALS: BP 98/64; PULSE 69; TEMP 36.5; O2SAT 97
[2017-11-07] MEDS ORDERED: NURSING VERBAL MED ORDER ONE (19:30)
[2017-11-07] MEDS: DOCUSATE SODIUM 100 MG CAP PO SCH (21:10)
[2017-11-07] MEDS: DULOXETINE HCL 20 MG CAP PO SCH (21:11)
[2017-11-07] MEDS: PROPRANOLOL HCL 60 MG LA CAP PO SCH (21:12)
[2017-11-07] MEDS: TRAZODONE HCL 50 MG TAB PO SCH (21:12)
[2017-11-07] MEDS: ATORVASTATIN 40 MG TAB PO SCH (21:13)
[2017-11-07] MEDS: DOCUSATE SODIUM/SENNA 50/8.6MG TAB PO SCH (21:44)
[2017-11-07 23:35] VITALS: BP_SYST 105; BP_SYST 91; BP_DIAS 51; BP_DIAS 65; PULSE 69; TEMP 36.5; O2SAT 96
[2017-11-08] MEDS: OXYCODONE HCL IR 5 MG TAB (IMMEDIATE RELEASE) PO PRN ×3 (03:31→13:45)
[2017-11-08 05:32] LABS: HEMATOCRIT 24.4 % (37-47); HEMOGLOBIN 8.1 g/dL (12.0-16.0); MEAN CELL VOLUME 90.4 fL (80-100); MEAN CORPUSCULAR HGB CONC 33.2 g/dl (32-36); MEAN PLATELET VOLUME 8.8 fL (7.4-10.4); NUCLEATED RED BLOOD CELL ABS 0.07 K/uL (0-0); PLATELET COUNT 219 K/uL (130-400); RED CELL DISTRIBUTION WIDTH CV 16.1 % (11.5-14.5); RED CELL DISTRIBUTION WIDTH SD 53.4 fL (36.4-46.3)
[2017-11-08] MEDS: LEVOTHYROXINE 125 MCG TAB PO SCH (06:03)
[2017-11-08] MEDS: ALBUTEROL HFA 8 GM INHALER INH SCH ×2 (06:03→11:35)
[2017-11-08 07:03] VITALS: BP 90/60; PULSE 60; TEMP 36.6; O2SAT 99
[2017-11-08] MEDS: TOPIRAMATE 100 MG TAB PO SCH (08:01)
[2017-11-08] MEDS: PANTOprazole SOD 40 MG TAB PO SCH (08:01)
[2017-11-08] MEDS: MAGNESIUM HYDROXIDE SUSP 30 ML UDC PO PRN (08:02)
[2017-11-08] MEDS: ASPIRIN 81 MG ECTAB PO SCH (08:02)
[2017-11-08] MEDS: BuPROPion SR 150 MG TABCR PO SCH (08:02)
[2017-11-08] MEDS: FLUTICASONE PROPIONATE NA SPR 16 GM BTL SCH (08:02)
[2017-11-08] MEDS: DOCUSATE SODIUM 100 MG CAP PO SCH (08:02)
[2017-11-08] MEDS: PREGABALIN 100 MG CAP PO SCH (08:07)
[2017-11-08 11:35] VITALS: BP 90/60; PULSE 60; TEMP 36.6; O2SAT 99
--- NOTE | 2017-11-08 14:12 | Progress Note ---
Subjective Date of Service: Nov 08, 2017. Subjective Pt evaluation today including: conversation w/ patient, physical exam, lab review, review of studies, review of inpatient medication list Saw/examined the patient in room 311 No problems/issues to note; pain controlled, +BM, eager to get out of the hospital Review of Systems Respiratory: No cough, No sputum, No wheezing, No shortness of breath, No dyspnea on exertion Cardiac: No chest pain Musculoskeletal: + joint pain Medications Current Inpatient Medications Medications (Trade) Dose Ordered Sig/Estephania Route Start Time Stop Time Status Last Admin Dose Admin Promethazine HCl 12.5 mg/Sodium Chloride 50.5 ml @ 202 mls/hr Q6H PRN IV 11/03/17 13:30 12/03/17 13:29 Ondansetron HCl (Zofran Inj) 4 mg Q6H PRN IV 11/03/17 13:30 12/03/17 13:29 Metoclopramide HCl (Reglan Inj) 10 mg Q6H PRN IV 11/03/17 13:30 12/03/17 13:29 Lorazepam (Ativan Tab) 0.5 mg Q8H PRN PO 11/03/17 13:30 12/03/17 13:29 11/05/17 23:46 0.5 MG Lorazepam 0.5 mg/ Syringe 0.25 ml @ 1 mls/min Q8H PRN IV 11/03/17 13:30 12/03/17 13:29 Pneumococcal Polysaccharide Vaccine 1 ea PRN PRN N/A 11/03/17 13:30 12/03/17 13:29 Influenza Virus Vacc Triv Types A&B 1 ea PRN PRN N/A 11/03/17 13:30 12/03/17 13:29 Bisacodyl (Dulcolax Supp) 10 mg DAILY PRN [place] 11/03/17 13:30 12/03/17 13:29 Magnesium Hydroxide (Milk Of Magnesia Susp) 30 ml DAILY PRN PO 11/03/17 13:30 12/03/17 13:29 11/08/17 08:02 30 ML Hydromorphone HCl (Dilaudid Inj) 0.5 mg Q3H PRN IV 11/04/17 06:00 11/18/17 05:59 11/05/17 03:18 0.5 MG Oxycodone HCl (Roxicodone Immediate Rel Tab) 5-10mg prn moderate to sev... Q4H PRN PO 11/04/17 06:00 11/18/17 05:59 11/08/17 13:45 10 MG Acetaminophen (Tylenol Tab) 1,000 mg Q8H PRN PO 11/03/17 13:30 12/03/17 13:29 11/05/17 16:33 1,000 MG Acetaminophen 100 ml @ 400 mls/hr Q8H PRN IV 11/03/17 13:30 12/03/17 13:29 Naloxone HCl (Narcan Inj) 0.1 mg Q5M PRN IV 11/03/17 13:30 12/03/17 13:29 Senna/Docusate Sodium (Senokot S Tab) 2 tab HS PO 11/03/17 21:00 12/03/17 20:59 11/07/17 21:44 2 TAB Sodium Biphosphate/ Sodium Phosphate (Fleet Enema) 132 ml ONE PRN [place] 11/03/17 13:30 12/03/17 13:29 11/07/17 17:18 132 ML Hydroxyzine HCl (Vistaril Tab) 25 mg Q8H PRN PO 11/03/17 13:30 12/03/17 13:29 Al Hydroxide/Mg Hydroxide (Maalox Susp) 30 ml Q6H PRN PO 11/03/17 13:30 12/03/17 13:29 Famotidine (Pepcid Tab) 20 mg Q12 PRN PO 11/03/17 13:30 12/03/17 13:29 Diphenhydramine HCl (Benadryl Cap) 25 mg Q6H PRN PO 11/03/17 13:30 12/03/17 13:29 11/05/17 00:33 25 MG Albuterol (Ventolin Hfa Inhaler) 2 puffs Q6 INH 11/03/17 18:00 12/03/17 17:59 11/08/17 11:35 2 PUFFS Aspirin (Ecotrin Tab) 81 mg QAM PO 11/04/17 09:00 12/04/17 08:59 11/08/17 08:02 81 MG Atorvastatin Calcium (Lipitor Tab) 80 mg QPM PO 11/03/17 21:00 12/03/17 20:59 11/07/17 21:13 80 MG Bupropion HCl (Wellbutrin-Sr Tab) 150 mg BID PO 11/03/17 21:00 12/03/17 20:59 11/08/17 08:02 150 MG Duloxetine HCl (Cymbalta Cap) 20 mg HS PO 11/03/17 21:00 12/03/17 20:59 11/07/17 21:11 20 MG Fluticasone Propionate (Flonase Nasal [place]) 2 sprays QAM NA 11/04/17 09:00 12/04/17 08:59 11/08/17 08:02 2 SPRAYS Lamotrigine (Lamictal Tab) 75 mg HS PO 11/03/17 21:00 12/03/17 20:59 11/07/17 21:12 75 MG Levothyroxine Sodium (Synthroid Tab) 125 mcg DAILYBB PO 11/04/17 06:00 12/04/17 05:59 11/08/17 06:03 125 MCG Nitroglycerin (Nitrostat Tab) 0.4 mg PRN [place] 11/03/17 13:30 12/03/17 13:29 Pregabalin (Lyrica Cap) 200 mg BID PO 11/03/17 21:00 12/03/17 20:59 11/08/17 08:07 200 MG Propranolol HCl (Inderal La Cap) 60 mg HS PO 11/03/17 21:00 12/03/17 20:59 11/07/17 21:12 60 MG Topiramate (Topamax Tab) 100 mg BID PO 11/03/17 21:00 12/03/17 20:59 11/08/17 08:01 100 MG Trazodone HCl (Desyrel Tab) 25 mg HS PO 11/03/17 21:00 12/03/17 20:59 11/07/17 21:12 25 MG Pantoprazole Sodium (Protonix Tab) 40 mg BID PO 11/03/17 21:00 12/03/17 20:59 11/08/17 08:01 40 MG Hydromorphone HCl (Dilaudid Inj) 1 mg Q3H PRN IV 11/03/17 15:45 11/17/17 15:44 11/04/17 17:50 1 MG Prednisone (PredniSONE TAB) 5 mg DAILY PO 11/04/17 09:00 12/04/17 08:59 11/08/17 08:01 5 MG Docusate Sodium (coLACE CAP) 100 mg BID PO 11/07/17 21:00 12/07/17 20:59 11/08/17 08:02 100 MG Objective Vital Signs Date Time Temp Pulse Resp B/P (MAP) Pulse Ox O2 Delivery O2 Flow Rate FiO2 11/08/17 11:35 36.6 60 18 99 Room Air 11/08/17 07:25 Room Air 11/08/17 07:03 36.6 60 18 90/60 (70) 99 Room Air 11/07/17 23:35 36.5 69 18 91/51 (64) 96 Room Air 105/65 (78) 11/07/17 23:30 Room Air 11/07/17 21:27 Room Air 11/07/17 14:52 36.5 69 16 98/64 (75) 97 Room Air Physical Exam General Appearance: no apparent distress Respiratory/Chest: no respiratory distress, no accessory muscle use Cardiovascular: regular rate, rhythm, no edema, no murmur Extremities: normal inspection, no pedal edema Laboratory Results Last 24 Hours Test 11/08/17 05:19 White Blood Count 5.00 K/uL Red Blood Count 2.70 M/uL Hemoglobin 8.1 g/dL Hematocrit 24.4 % Mean Corpuscular Volume 90.4 fL Mean Corpuscular Hemoglobin 30.0 pg Mean Corpuscular Hemoglobin Concent 33.2 g/dl RDW Standard Deviation 53.4 fL RDW Coefficient of Variation 16.1 % Platelet Count 219 K/uL Mean Platelet Volume 8.8 fL Nucleated RBC Absolute Count (auto) 0.07 K/uL Nucleated Red Blood Cells % 1.3 % Assessment and Plan This is a 56 year old female with a PMH of adrenal insufficiency on long-term steroid use, CAD s/p stent x1, hypothyroidism, hx. of gastric bypass - presents for lumbar surgery Lumbar Decompression/Fusion 11/08 doing well, pain controlled plan to d/c to rehab today continued steroid use; monitor BP at rehab prior to giving pain medications 3 continue pain medications as per ortho extra dose of Colace now plan to d/c to rehab in AM uses prednisone 5mg daily 11/06 doing well today, pain improved with medications plan to d/c to rehab as per ortho 3/2 s/p removal of hardware and fusion of T10-S1 doing well today plan for PT/OT plan for discharge to rehab on November 08 Expected Acute Blood Loss Anemia Hgb down from 10 to 9 stable monitor H/H CAD s/p stenting x1 No anginal symptoms continue statin, aspirin for now, continue b-diony, but will monitor blood pressure prior to dose COPD Respiratory status stable Incentive spirometry Continue usual inhalers PEPPER on nocturnal CPAP Adrenal Insufficiency On chronic steroid therapy for adrenal insufficiency as well as arthritis/ fibromyalgia patient takes 5mg of prednisone Hemodynamically stable Hypothyroidism continue Synthroid Morbid Obesity Fibromyalgia continue home medications DVT ppx as per ortho FULL CODE
[2017-11-08 15:07] VITALS: BP 84/51; PULSE 73; TEMP 36.6; O2SAT 93
--- NOTE | 2017-11-11 14:03 | Discharge Summary ---
Orthopedic Discharge Summary Admission Date/Reason Nov 03, 2017 at 14:18 Spinal Stenosis. Discharge Date/Disposition Nov 08, 2017 detention facility Diagnosis Principal Diagnosis: spinal stenosis Procedure(s) Performed removal hardware L4-S1, lumbar decompression, T10-S1 instrumented fusion Medication Reconciliation New Medications: Oxycodone HCl (Oxycodone HCl) 5 Mg Tab 5-10 MG PO Q4H PRN for Moderate - severe pain for 30 Days, #60 TAB Continued Medications: Albuterol Hfa (Ventolin Hfa) 200 Puffs/02328 Mcg Aers 2-4 PUFFS INH Q6H, #1 INHALER Aspirin (Aspirin Ec) 81 Mg Tab 81 MG PO QAM Atorvastatin (Lipitor) 80 Mg Tab 80 MG PO QPM, TAB Bupropion (Wellbutrin Sr) 150 Mg Ertab 150 MG PO BID, TAB Calcium Carbonate-Cholecalcife (Caltrate 600+D) 1 Tab Tab 1 TAB PO BID Chlorhexidine Gluconate (Bulk) (Chlorhexidine Gluconate) 1 Mallorie Mallorie 4 % TOP UD PRN for skin irritation Clobetasol Propionate (Clobetasol Propionate Cream 0.05%) 90 Appln/30 Gm Cr 1 APPLN EXT DIRECTED PRN for hand irritation, TUBE Cranberry-Vitamin C-Vitamin E (Cranberry Plus Vitamin C) 1 Cap Cap 1 TAB PO QAM Cyanocobalamin (Vitamin B-12) 1,000 Mcg Tab 1000 MCG INJ MONTHLY, TAB Duloxetine HCl (Cymbalta) 20 Mg Cap 1 CAP PO HS for 30 Days, CAP Esomeprazole Magnesium (Nexium) 40 Mg Capcr 40 MG PO BID, CAP Fluticasone Propionate (Nasal) (Allergy Nasal [place] 24 Ho) 50 Mcg/Act Spr 2 SPRAYS NA QAM Hydrocodone/Acetaminophen 5MG/325MG ([place] 5MG/325MG) Tab 1-2 TAB PO q4-6 PRN for Pain, #60 TAB PRN PAIN Hydroxyzine Pamoate (Vistaril) 25 Mg Cap 25 MG PO QPM, CAP Lamotrigine (Lamictal) 25 Mg Tab 75 MG PO HS, TAB Levothyroxine Sodium (Levothyroxine Sodium) 125 Mcg Tab 1 TAB PO QAM for 90 Days, #90 TAB 3 Refills Melatonin (Melatonin Maximum Strengt) 5 Mg Tab 2 TAB PO HS for 30 Days, #30 TAB Multiple Vitamins W/ Minerals (Hair Skin and Nails Formu) 1 Tab Tab 2 TAB PO QAM Nitroglycerin (Nitrostat) 0.4 Mg Tab 0.4 MG UT PRN, BTL Polyethylene (Miralax) 17 Gm Pow 17 GM PO QPM Prednisone (Prednisone) 5 Mg Tab 5 MG PO DAILY, TAB Pregabalin (Lyrica) 200 Mg Cap 200 MG PO BID, CAP Propranolol La (Inderal La) 60 Mg Capcr 60 MG PO HS, CAP Topiramate (Topamax) 100 Mg Tab 100 MG PO BID, TAB Trazodone Hcl (Trazodone) 50 Mg Tab 25 MG PO HS, TAB Admission Physical Exam As per Admitting History & Physical. Hospital Course pt had an uneventful hospital course. progressed with physical therapy. Discharge Instructions Please refer to the electronic Patient Visit Report (Discharge Instructions) for additional information.
== END 2017-11-08 16:35 | DRG 454 ==
LOC: C.ACU 08:31 → C.2E 14:18 → ENRESERV 14:46 → C.3E 11-04 10:34
PROVIDERS: ADMIT Orthopaedic Surgery Orthopaedic Surgery of the Spine; ATTEND Orthopaedic Surgery Orthopaedic Surgery of the Spine
DX: M48.061 Spinal stenosis, lumbar region without neurogenic claudication (principal); D62 Acute posthemorrhagic anemia; E27.40 Unspecified adrenocortical insufficiency; J44.9 Chronic obstructive pulmonary disease, unspecified; M41.9 Scoliosis, unspecified; E66.01 Morbid (severe) obesity due to excess calories; I25.10 Atherosclerotic heart disease of native coronary artery without angina pectoris; G47.33 Obstructive sleep apnea (adult) (pediatric); M79.7 Fibromyalgia; Z79.82 Long term (current) use of aspirin; Z88.8 Allergy status to other drugs, medicaments and biological substances; Z79.52 Long term (current) use of systemic steroids

== ENCOUNTER 2018-12-28 06:17 | Inpatient (IN) ==
--- NOTE | 2018-11-25 12:53 | Anesthesiology Consultation ---
Date of Service November 25, 2018 Assessment & Plan (1) Encounter for pre-operative examination: PCP clearance (Alexx Hong 12/13): "OK for surgery as planned." Cardiology 10/31/18: " CAD stable." Chart Review Chart Review: Acceptable Risk for Surgery and Patient seen in Pre Admission Testing Teaching & Discussion Instructed NPO after midnight before surgery, except medications with 15 cc of water. Medication instructions provided according to the PAT guidelines. History Surgery Operation Date: 12/28/18 13:10 Proposed Procedures p Right Total Knee Arthroplasty - Ayden Steen MD Height/Weight Height: 5 ft 5 in Weight: 95.5 kg Allergies Allergy/AdvReac Type Severity Reaction Status Date / Time ROSINA Inhibitors AdvReac Unknown drop in bp Verified 11/22/18 14:22 NSAIDS (Non-Steroidal AdvReac Unknown CAN'T HAVE Verified 11/22/18 14:22 Anti-Inflamma DUE TO GASTRIC BYPASS Medications Home Medications Medication Instructions Recorded Confirmed Last Taken bupropion HCl 300 mg PO QAM 11/23/18 11/23/18 Unknown calcium carbonate-vitamin D3 1 tab PO DAILY 11/23/18 11/23/18 Unknown [Calcium 600 with Vitamin D3] donepezil [Aricept] 5 mg PO HS 11/23/18 11/23/18 Unknown esomeprazole magnesium 40 mg PO BID 11/23/18 11/23/18 Unknown hydrochlorothiazide 25 mg PO QAM 11/23/18 11/23/18 Unknown hydrocodone-acetaminophen 1 tab PO Q6H 11/23/18 11/23/18 Unknown hydroxyzine HCl 25 mg PO BID 11/23/18 11/23/18 Unknown lamotrigine 100 mg PO HS 11/23/18 11/23/18 Unknown levothyroxine 125 mcg PO QAM 11/23/18 11/23/18 Unknown melatonin 10 mg PO HS 11/23/18 11/23/18 Unknown montelukast [Singulair] 10 mg PO HS 11/23/18 11/23/18 Unknown nitroglycerin 1 tab SUBLINGUAL UD PRN 11/23/18 11/23/18 Unknown pediatric multivitamin no.136 1 tab PO DAILY 11/23/18 11/23/18 Unknown [Children Multivitamin] pregabalin [Lyrica] 200 mg PO BID 11/23/18 11/23/18 Unknown propranolol 160 mg PO HS 11/23/18 11/23/18 Unknown topiramate 50 mg PO BID 11/23/18 11/23/18 Unknown trazodone 25 mg PO HS 11/23/18 11/23/18 Unknown Past Medical History Medical History Coronary artery disease (Chronic) NSTEMI 2004, s/p PCI to OM 1 with [place]IB[place]. Sleep apnea (Chronic) CPAP HS Acid reflux Adrenal insufficiency Was treated with steroids daily for several years for this and chronic pain/fibromyalgia, but was weaned off, and has been off of all steroids since about 6 months ago. 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 Septic shock HX OF 2011. Was being treated for abdominal infection (s/p hernia repair) with PICC line, and PICC became infected, turned to sepsis. Past Surgical History Surgical History History of back surgery "SCREWS IN HIPS AND WENT UP TO SHOULDER BLADES WITH RODS AND SCREWS" History of back surgery 2 TOTAL BACK SURGERIES - 1) "SPINAL DECOMPRESSION WITH FUSION" History of cardiac cath HEART ATTACK...2004 - STENT X 1 [place] History of cholecystectomy History of colonoscopy History of ganglion cyst REMOVAL X2 / R ANKLE History of gastric bypass History of gynecologic surgery LEEP History of hernia surgery WITH PANNICULECTOMY History of hernia surgery X2 TOTAL/ONE WITH PANNICULECTOMY History of hysterectomy OVARIES REMAIN History of incision and drainage "DEBRIDEMENT OF ABDOMEN" X2 History of left knee replacement History of tubal ligation Status post insertion of spinal cord stimulator [employer] - SEP 2018 PLACED Past Anesthesia History No Hx of Anesthesia Complications and No Family Hx of Anesthesia Complications Pt reports needing to be given "steroids to raise my BP after surgery," in the past. Anesthesia progress notes from 2014 and 2018 surgeries do not show steroids given in PACU, BPs were stable. Pt was previously on Cortef for adrenal insufficiency and may have had steroid bolus prior to surgery in the past, but this has since been tapered off. 11/03/17 Removal of hardware L4-S1, Dec/fusion T11-L3 with iliac bolts @ [facility]: MAC 3, ETT 7.5, grade view I. 2014 TKA: SAB successful with 3 attempts History of PONV No Motion Sickness Screening History of Motion Sickness: No Social History Smoking Status: Former smoker tobacco type: cigarettes Do You Dip or Chew Tobacco: No Smoking End Date: DECEMBER 2004 QUIT Hx Alcohol Use: No Hx Substance Use: No substance use type: does not use Exercise / Class Metabolic Activity II 4-5 Yardwork/Stairs/Walk up hill (Denies CP o SOB with stairs, using cane for longer distances currently) Review of Systems Pt denies any recent chest pain, shortness of breath, palpitations, cough, fever or URI. Physical Exam Vital Signs BP: 90/59 (pt states she usually runs low, she is symptomatic) P: 51bpm SPO2: 95% RA T: 97.8 F R: 16 Constitutional + obese ENMT Mouth: + dentures (upper and lower partials); no chipped teeth and no loose teeth Thyromental Distance: > or= 3.5 Finger Breadths (4) Mallampati Class: I Pt to have dental extractions done prior to surgery--reports she cleared this with the surgeon today. Neck normal visual inspection; neck extension not limited (but does have pain with full extension) Respiratory normal respiratory effort Auscultation: lungs clear to auscultation bilaterally Cardiovascular Rate/Rhythm: regular rhythm and + bradycardic Heart Sounds: no murmur Vessels: no carotid bruit Extremities: no edema Testing Electrocardiogram Date: 03/21/18 Findings: + SB @ (52) Low voltage QRS, consider pulmonary disease, pericardial effusion, or normal variant. When compared with EKG of 10/21/2017, no significant changes found. Chest X-Ray Date: 11/25/18 1. No acute cardiopulmonary findings. 2. Mild cardiomegaly. Stress Test Date: 10/28/17 Type: DSE Resting EF: 68% The dobutamine stress echo is negative for inducible ischemia at 84% of target heart rate. Dobutamine EKG negative for ischemia. 9 beat run of V. tach noted on beginning of medication infusion. Normal blood pressure response to dobutamine infusion. Abnormal heart rate response to dobutamine infusion. Resting echo showed EF 68%. Normal LV wall thickness. Normal right ventricular cavity size and systolic function. Grade 1 diastolic dysfunction of the left ventricle. No pericardial effusion. Normal IVC size and collapsibility. Laboratory Results 11/25/18 13:25 11/25/18 13:25 Blood Type O Positive 11/25/18 13:25 Antibody Screen NEGATIVE 11/25/18 13:25 PT 9.9 Seconds (9.0-12.0) 11/25/18 13:25 INR 1.0 (0.9-1.1) 11/25/18 13:25 APTT 30.6 Seconds (21.0-31.0) 11/25/18 13:25 Hemoglobin A1c 5.8 % (4.5-5.6) H 11/25/18 13:25 Urine Color Yellow 11/25/18 13:25 Urine Appearance Clear (Clear) 11/25/18 13:25 Urine pH 5.0 (4.5-7.5) 11/25/18 13:25 Ur Specific [place] 1.021 (1.000-1.030) 11/25/18 13:25 Urine Protein Negative (Negative) 11/25/18 13:25 Urine Glucose (UA) Negative (Negative) 11/25/18 13:25 Urine Ketones Negative (Negative) 11/25/18 13:25 Urine Nitrite Negative (Negative) 11/25/18 13:25 Ur Leukocyte Esterase Negative (Negative) 11/25/18 13:25
--- NOTE | 2018-11-25 12:53 | PAT Medication Instructions ---
Medication Instructions Date of Service November 25, 2018 Home Medications bupropion HCl 300 mg PO QAM calcium carbonate-vitamin D3 1 tab PO DAILY donepezil [Aricept] 5 mg PO HS esomeprazole magnesium 40 mg PO BID hydrochlorothiazide 25 mg PO QAM hydrocodone-acetaminophen 1 tab PO Q6H hydroxyzine HCl 25 mg PO BID lamotrigine 100 mg PO HS levothyroxine 125 mcg PO QAM melatonin 10 mg PO HS montelukast [Singulair] 10 mg PO HS nitroglycerin 1 tab SUBLINGUAL UD PRN pediatric multivitamin no.136 1 tab PO DAILY pregabalin [Lyrica] 200 mg PO BID propranolol 160 mg PO HS topiramate 50 mg PO BID trazodone 25 mg PO HS DO NOT take the morning of surgery calcium carbonate-vitamin D3 1 tab PO DAILY hydrochlorothiazide 25 mg PO QAM pediatric multivitamin no.136 1 tab PO DAILY Take morning of surgery With a small sip of water, OTHERWISE NOTHING TO EAT OR DRINK AFTER MIDNIGHT: bupropion HCl 300 mg PO QAM esomeprazole magnesium 40 mg PO BID hydrocodone-acetaminophen 1 tab PO Q6H (if needed, may be taken up to four hours before surgery) hydroxyzine HCl 25 mg PO BID levothyroxine 125 mcg PO QAM pregabalin [Lyrica] 200 mg PO BID topiramate 50 mg PO BID Take evening before surgery calcium carbonate-vitamin D3 1 tab PO DAILY donepezil [Aricept] 5 mg PO HS esomeprazole magnesium 40 mg PO BID hydrocodone-acetaminophen 1 tab PO Q6H (if needed) hydroxyzine HCl 25 mg PO BID lamotrigine 100 mg PO HS melatonin 10 mg PO HS montelukast [Singulair] 10 mg PO HS nitroglycerin 1 tab SUBLINGUAL UD PRN (if needed) pediatric multivitamin no.136 1 tab PO DAILY pregabalin [Lyrica] 200 mg PO BID propranolol 160 mg PO HS topiramate 50 mg PO BID trazodone 25 mg PO HS Other Notes If you have any questions please call us at [phone] or [phone] or [phone] or [phone]
--- NOTE | 2018-11-25 13:46 | XRay Report ---
XR chest Pre-admission PA/Lat CLINICAL HISTORY: Preoperative evaluation. COMPARISON STUDY: Chest radiograph September 24, 2013. FINDINGS: Intracanalicular catheter is noted. This is incompletely imaged on this exam. Thoracolumbar spine hardware is partially imaged as well. There are cholecystectomy clips. No pneumothorax or pleu ral effusion is noted. There is no consolidation or evidence for pulmonary edema. There is mild cardi omegaly. IMPRESSION: 1. No acute cardiopulmonary findings. 2. Mild cardiomegaly. Electronically signed by: Zeferino Alcazar M.D. 11/25/2018 1:44 PM
[2018-11-25 14:36] LABS: Basophils # (auto) 0.03 K/uL (0-0.2); Basophils % (auto) 0.5 %; Eosinophils # (auto) 0.23 K/uL (0-0.5); Eosinophils % (auto) 3.6 %; Hematocrit (blood only) 37.3 % (37-47); Hemoglobin 11.7 g/dL (12.0-16.0); Immature Granulocytes # (auto) 0.03 K/uL (0.00-0.02); Immature Granulocytes % (auto) 0.5 %; Lymphocytes # (auto) 2.53 K/uL (1.2-3.4); Lymphocytes % (auto) 39.7 %; Mean Corpuscular Hgb Conc 31.4 g/dL (32-36); Mean Corpuscular Volume 79.4 fL (80-100); Mean Platelet Volume 9.1 fL (7.4-10.4); Monocytes % (auto) 7.8 %; Neutrophils # (auto) 3.06 K/uL (1.4-6.5); Neutrophils % (auto) 47.9 %; Platelet Count 324 K/uL (130-400); RDW Coefficient of Variation 19.1 % (11.5-14.5); RDW Standard Deviation 55.4 fL (36.4-46.3); White Blood Count 6.38 K/uL (4.8-10.8)
[2018-11-25 14:39] LABS: Appearance Urine Clear (Clear); Bilirubin Urine Negative (Negative); Blood Urine Negative (Negative); Color Urine Yellow; Glucose Urine UA Negative (Negative); Ketones Urine Negative (Negative); Leukocyte Esterase Urine Negative (Negative); Nitrite Urine Negative (Negative); Protein Urine Negative (Negative); Specific Gravity Urine 1.021 (1.000-1.030); Urobilinogen Urine Negative (Negative)
[2018-11-25 14:52] LABS: Partial Thromboplastin Ratio 1.1; Partial Thromboplastin Time 30.6 Seconds (21.0-31.0); Prothrombin Time 9.9 Seconds (9.0-12.0)
[2018-11-25 15:05] LABS: Albumin Level 3.4 gm/dl (3.4-5.0); BUN Creatinine Ratio 12.6 (10-20); Calcium 9.1 mg/dl (8.5-10.1); Creatinine Clr Calc Pharmacy 74.6 ml/min; Est GFR (African American) 77.5; Est GFR (Non-African American) 66.9; Potassium 4.4 mmol/L (3.5-5.1)
[2018-11-26 07:09] LABS: Estimated Average Glucose 120 mg/dl; Hemoglobin A1C 5.8 % (4.5-5.6)
--- NOTE | 2018-12-27 17:00 | History and Physical Report ---
DATE OF ADMISSION: 12/28/2018 CHIEF COMPLAINT: Chronic right knee pain. HISTORY OF PRESENT ILLNESS: This is a 58-year-old female patient of Dr. Steen'marco complaining of chronic right knee pain, longstanding, now progressively getting worse. The patient has been diagnosed with end-stage osteoarthritis per clinical and radiographic exams. The patient has failed conservative treatment including intraarticular injections, narcotics, physical therapy, home exercise program and the use of a cane. The patient cannot have antiinflammatories due to gastric bypass surgery. The patient has increased pain with weightbearing activities and her pain does interfere with her activities of daily living. The patient wished to proceed with a right total knee arthroplasty. PAST MEDICAL HISTORY: Coronary artery disease status post an TN in 2004, COPD, sleep apnea with use of CPAP, anxiety, hypothyroidism, osteoarthritis, spine problems, neck problems, upper back problems, sciatica, acid reflux, hiatal hernia, obesity, dental issues. SOCIAL HISTORY: Was a lifelong smoker, quit in 2004. No alcohol. PAST SURGICAL HISTORY: Gastric bypass surgery, hernia repair with appendectomy, spinal cord stimulator placement, multiple cysts removals, tubal ligation, cervical surgery. FAMILY HISTORY: Noncontributory. REVIEW OF SYSTEMS: Chronic right knee pain, otherwise denies shortness of breath, chest pain, nausea, vomiting or any other joint complaints. MEDICATIONS: Levothyroxine 125 mcg daily, Nexium 40 mg daily, Caltrate 600 plus D daily, atorvastatin 80 mg daily, polyethylene glycol powder daily, fluticasone 50 mcg actuation disc 1 puff twice daily, multivitamin daily, nitroglycerin 0.4 mg translingual spray as needed, [place] as needed, hydrocortisone 10 mg 2 tablets 2 times daily with food, Lyrica 200 mg daily, Cortef 5 mg daily, Topamax 100 mg 2 tablets twice daily, chlorhexidine gluconate 4% topical liquid to affected area daily as needed, polyethylene glycol oral powder with 8 ounces of water daily, hydroxyzine pamoate 25 mg 4 times daily, clobetasol 0.05% topical ointment to affected area twice daily, 81 mg aspirin daily, lamotrigine 25 mg 2 tablets twice daily, Ventolin HFA 90 mcg per actuation 2 puffs every 4-6 hours as needed, trazodone 50 mg 3 times daily, Singulair daily, Zyrtec as needed. ALLERGIES: ROSINA INHIBITORS CAUSE HYPOTENSION, ANTI-INFLAMMATORIES ARE CONTRAINDICATED WITH HER GASTRIC BYPASS. PHYSICAL EXAMINATION: GENERAL: Well-developed, well-nourished 58-year-old female in no acute distress. She is alert and oriented x3 and pleasant. HEENT: Normocephalic, atraumatic. Extraocular motions are intact. Pupils are equal and reactive to light. HEART: Regular rate and rhythm, no murmurs. LUNGS: Clear. ABDOMEN: Soft, nontender, bowel sounds present. EXTREMITIES: Right knee with a valgus deformity with lateral joint line tenderness. She has a mild effusion with crepitation with passive range of motion. She has limited range of motion of 0-125 degrees. She has 4/5 strength with pain. NEUROLOGIC: Neurovascularly, she is intact in her right lower extremity. DIAGNOSES: Right knee end-stage osteoarthritis, coronary artery disease status post an TN in 2004, COPD, sleep apnea with use of CPAP, anxiety, hypothyroidism, osteoarthritis, spine problems, neck problems, upper back problems, sciatica, acid reflux, hiatal hernia, obesity, dental issues. PLAN: The patient was advised of her diagnosis. Indications, risks, benefits, postop course have all been reviewed. The patient wished to proceed with a right total knee arthroplasty. Necessary consent forms, preoperative testing and clearances will be obtained.
[~2018-12-28 06:17] MED LIST changes: +ACETAMINOPHEN 500 MG TAB PO SCH; -ALBUMIN HUMAN 5% 12.5 GM/250 ML VIAL IV ONE; -AMIT25TA19 PO; -ASPI81TA28 PO; -ATOR80TA PO; -ATROPINE SULFATE 0.1 MG/ML 5ML SYR IV PRN; -BUPR-79 PO; -CALC-354 PO; +CEFAZOLIN 2000MG 2,000 MG/15 ML SYR IV SCH; -CEFAZOLIN 2000MG IV PUSH 15 ML IV SCH; -CHLO1SOL TOP; -CLBCRM30 EXT; -CRAN1CAP14 PO; -CYAN10005 INJ; -DULO-24 PO; -EpHEDrine SULFATE INJ 50 MG/ML AMP IV PRN; +FAMOTIDINE 20 MG TAB PO SCH; -FENTANYL CITRATE INJ 50 MCG/1 ML 2 ML VIAL IV PRN; -FENTANYL CITRATE INJ 50 MCG/1 ML 2 ML VIAL ONE; -FLUT50SP45; +GABAPENTIN 300 MG x 2 PO SCH; -HYDR-5688 PO; -HYDR1CAP85 PO; -HYDR5TAB PO; -LACTATED RINGER'S 1000ML 1,000 ML IV SCH; -LAMO25TA PO; -LEVO125T5 PO; +LR 500ML BOLUS, THEN 15ML/HR IV SCH; -MELATAB2 PO; +METOCLOPRAMIDE HCL 10 MG TABLET PO SCH; -MIDAZOLAM HCL 1 MG/ML 2ML VIAL ONE; -MRLP17X PO; -MULT-1018 PO; -MoRPHine SULFATE 10 MG/ML CARP/VIAL IV PRN; -NTRGSL/4 UT; -NXM/40 PO; -ONDANSETRON INJ 2 MG/ML 2 ML VIAL IV PRN; -PREG200C PO; -PRENTAB26 PO; -PROP60CA5 PO; +ROPIVACAINE 0.5% HCL/PF 150 MG, BUPIVACAINE 0.5% MPF 30 ML, EPINEPHrine 30MG/30ML (OR U... INFIL SCH; -TOPI100T34 PO; -TRAZ50TA35 PO; -VNTHFA/IN INH; +dexAMETHasone 4 MG TAB PO SCH
[2018-12-28] MEDS ORDERED: EPINEPHrine INJ 1 MG/ML AMP ONE (06:33)
[2018-12-28] MEDS ORDERED: ROPIVACAINE 0.5% 5 MG/ML 30 ML VIAL ONE (06:33)
[2018-12-28] MEDS ORDERED: BUPIVACAINE 0.5 % 5 MG/1 ML PF 10ML VIAL ONE (06:33)
[2018-12-28] MEDS ORDERED: PROPOFOL IV EMULSION 10 MG/ML 20 ML VIAL IV ONE (06:49)
[2018-12-28] MEDS ORDERED: fentaNYL citrate 100 MCG/2 ML VIAL ONE (06:50)
[2018-12-28] MEDS ORDERED: MIDAZOLAM HCL 1 MG/ML 2ML VIAL ONE (06:50)
--- NOTE | 2018-12-28 06:58 | History & Physical Bridge Note ---
Date of Service December 28, 2018 History & Physical Bridge Note I have examined the patient, reviewed the History & Physical and in the interval since the performance of the History & Physical I have noted the following changes of clinical significance: no changes noted
[2018-12-28] MEDS ORDERED: BACITRACIN INJ 50,000 UNIT VIAL ONE (07:13)
[2018-12-28] MEDS ORDERED: ORTHO JOINT ANESTHETIC ONE (07:13)
[2018-12-28] MEDS ORDERED: POVIDONE-IODINE OP SOLN 30 ML BTL ONE (07:13)
--- NOTE | 2018-12-28 09:41 | Anesthesiology Progress Note ---
Date of Service December 28, 2018 Patient presented for Right TKA.Patient seen ,examined,chart reviewed and informed consent obtained. pt to have a GETA since she has a spinal cord implant. Pt to have Right addductor canal nerve block. At 0840 ,right adductor canal nerve block performed using U/S guidance,with 30 ml 0.5% ropivacaine + epinephrine,using incremental(Q 5 ml) aspiration and injection, which was negative for blood. Prior to commencement of the block,pt was administered 2 mg midazolam iv.Block was performed w/o incident. At 0844- 0845 pt desaturated to low 80's and airway was supported,pt had O2 FM on.Pt was noted to be having what I discered to be seizures.Pt had also bitten the right side of her tongue, hence,some bleeding. I had Neurology consulted and had ICU prepared foods team leader (lizabeth) come to ASU 2. By approx. 0900,pt was still not responding appropriately;patient appeared to be in a post ictal state.Muscle tone was flaccid.By approx.,0910 pt was responding to commands and did not remember what occurred. Pt has been transferred to ICU.Pt to have an EEG, and ropivacaine blood levels to be drawn. I had the daughter come to the bedside, and reassured her that her mother's safety was paramount and that I am obtaining the proper specialists to determine if this is an unmasking of new onset seizures and or local anesthetic toxicity. I discussed this with Dr Steen and the case is cancelled. Vital signs were stable throughout ,save for a short period of O2 desaturation. HR never increased from epi., and there were no dysrhythmias.Pt will be followed in ICU. Physical Exam Vital Signs: Last Vital Signs Temp 36.5 C 12/28/18 07:18 Pulse 55 L 12/28/18 07:18 Resp 18 12/28/18 07:18 BP 116/66 12/28/18 07:18 Pulse Ox 95 12/28/18 07:18
[2018-12-28 10:28] LABS: Basophils # (auto) 0.03 K/uL (0-0.2); Basophils % (auto) 0.4 %; Eosinophils # (auto) 0.15 K/uL (0-0.5); Eosinophils % (auto) 1.8 %; Hematocrit (blood only) 38.8 % (37-47); Hemoglobin 12.4 g/dL (12.0-16.0); Immature Granulocytes # (auto) 0.02 K/uL (0.00-0.02); Immature Granulocytes % (auto) 0.2 %; Lymphocytes # (auto) 1.08 K/uL (1.2-3.4); Lymphocytes % (auto) 12.7 %; Mean Corpuscular Volume 78.7 fL (80-100); Mean Platelet Volume 9.4 fL (7.4-10.4); Monocytes # (auto) 0.27 K/uL (0.11-0.59); Monocytes % (auto) 3.2 %; Neutrophils # (auto) 6.96 K/uL (1.4-6.5); Neutrophils % (auto) 81.7 %; Platelet Count 258 K/uL (130-400); RDW Coefficient of Variation 19.2 % (11.5-14.5); Red Blood Count 4.93 M/uL (4.2-5.4); White Blood Count 8.51 K/uL (4.8-10.8)
--- NOTE | 2018-12-28 10:28 | Procedure Note ---
EEG Procedure Note Date of Service December 28, 2018 Start / End Times Start Time: 9:38 AM End Time: 9:58 AM Referring Physician Jabari Kennedy History This is a 58-year-old female who had a seizure-like events in the setting of lower extremity nerve block. EEG for further evaluation of seizure etiology. Home Medication List Home Medications Medication Instructions Recorded Confirmed Type bupropion HCl 300 mg PO QAM 11/23/18 12/28/18 History calcium carbonate-vitamin D3 1 tab PO DAILY 11/23/18 12/28/18 History [Calcium 600 with Vitamin D3] donepezil [Aricept] 5 mg PO HS 11/23/18 12/28/18 History esomeprazole magnesium 40 mg PO BID 11/23/18 12/28/18 History hydrochlorothiazide 25 mg PO QAM 11/23/18 11/23/18 History hydrocodone-acetaminophen 1 tab PO Q6H 11/23/18 12/28/18 History hydroxyzine HCl 25 mg PO BID 11/23/18 12/28/18 History lamotrigine 100 mg PO HS 11/23/18 12/28/18 History levothyroxine 125 mcg PO QAM 11/23/18 12/28/18 History melatonin 10 mg PO HS 11/23/18 12/28/18 History montelukast [Singulair] 10 mg PO HS 11/23/18 12/28/18 History nitroglycerin 1 tab SUBLINGUAL UD PRN 11/23/18 11/23/18 History pediatric multivitamin no.136 1 tab PO DAILY 11/23/18 12/28/18 History [Children Multivitamin] pregabalin [Lyrica] 200 mg PO BID 11/23/18 12/28/18 History propranolol 160 mg PO HS 11/23/18 12/28/18 History topiramate 50 mg PO BID 11/23/18 12/28/18 History trazodone 25 mg PO HS 11/23/18 12/28/18 History Inpatient Medication List Acetaminophen (Tylenol) 1,000 mg PO PREOP FLORY Stop: 12/28/18 18:00 Last Admin: 12/28/18 07:45 Dose: 1,000 mg Documented by: [id number] Dexamethasone (Decadron) 8 mg PO PREOP FLORY Stop: 12/28/18 18:00 Last Admin: 12/28/18 07:44 Dose: 8 mg Documented by: [id number] Famotidine (Pepcid) 20 mg PO PREOP FLORY Stop: 12/28/18 18:00 Last Admin: 12/28/18 07:45 Dose: 20 mg Documented by: [id number] Gabapentin (Neurontin) 600 mg PO PREOP FLORY Stop: 12/28/18 18:00 Last Admin: 12/28/18 07:44 Dose: 600 mg Documented by: [id number] Lactated Ringer's (Lr) 1,000 mls @ 15 mls/hr IV .Q24H FLORY Stop: 12/28/18 18:00 Last Admin: 12/28/18 07:34 Dose: 15 mls/hr Documented by: [id number] Metoclopramide HCl (Reglan) 10 mg PO PREOP FLORY Stop: 12/28/18 18:00 Last Admin: 12/28/18 07:45 Dose: 10 mg Documented by: [id number] Description This is a 21 electrode EEG with a single channel dedicated to limited EKG. The electrodes were placed in accordance with the International 10-20 system. At the start of the recording the patient was in an awake state. Background was well organized and composed of symmetric mixed alpha and beta frequencies. There was a symmetric well-formed moderate amplitude 8-9 Hz posterior dominant rhythm that was reactive to eye opening and closure. Hyperventilation was not done. Intermittent photic stimulation at various frequencies produced no abnormalities. Sleep was indicated by loss of muscle artifact, slowing of the background rhythm, vertex waves, and symmetric sleep spindles. Interpretation This is a normal awake and asleep routine EEG. There was no electrographic seizures or epileptiform discharges. Clinical Correlation A normal EEG does not rule out epilepsy if there is a strong clinical suspicion.
[2018-12-28] MEDS ORDERED: ICU PROTOCOL FOR HYPERGLYCEMIA PRN (10:29)
--- NOTE | 2018-12-28 10:31 | Critical Care Consultation ---
Date of Consultation December 28, 2018 Assessment & Plan (1) Sleep apnea: Impression: 1. Loss of consciousness, iatrogenic, accompanied with tremor versus seizure activity, the patient with history of obstructive sleep apnea, also she is on medications that could lower her seizure threshold including donepezil and bupropion. However, she is taking Topamax and lamotrigine as well which has antiepileptic for activity. Currently the patient is not postictal, does not have any symptoms, she did not have aura, EEG is ongoing. 2. Obstructive sleep apnea on CPAP at home. 3. Unclear to me if the patient taken propranolol for essential tremor. Patient also received trazodone last night which is anticholinergic drug that can lower seizure threshold. 4. Effect of aminosters low on seizure threshold but does exist. Plan: 1. I do not see any contraindication for her to go to the OR for total knee replacement. I would wait until her medications is cleared of , especially bupropion. 2. Awaiting EEG report. 3. Pending her BMP to evaluate her creatinine clearance. 4. We will monitor the patient in the ICU for further activity. 5. Discussed with the staff on rounds and details. Critical care time spent with the patient was 45 minutes. History of Present Illness Reason for Consultation: New onset seizure Requesting Physician: Dr. Steen Attending Physician: Ayden Steen MD History of Present Illness Dear Dr. Steen: Thank you for the kind referral of Latrice to critical care service. This is a 58-year-old female with a history of morbid obesity, bariatric surgery in the past, obstructive sleep apnea on CPAP at night, has been maintained on multiple medications for excessive daytime sleepiness including bupropion, donepezil, and she has been taken also nocturnal trazodone and propranolol in addition to Lyrica, she has a history of osteoarthritis and she was planned for elective right total knee replacement. The patient underwent a nerve block in which the patient was noted to have loss of consciousness and accompanied also with naldo clonus movement in her upper extremities. The patient was transferred to the ICU and the procedure was aborted. When I interviewed the patient, she was fully awake, following commands, she denies any pain, no tremor, no dizziness or vertigo, she was able to maintain her lateral gaze, she denies any nausea abdominal pain or chest pain, no knee pain either. The patient did not have any focal motor or sensory loss. She does not appear to be even postictal. The rest of her review of system was unremarkable. Allergies Allergy/AdvReac Type Severity Reaction Status Date / Time ROSINA Inhibitors AdvReac Unknown drop in bp Verified 12/28/18 07:07 NSAIDS (Non-Steroidal AdvReac Unknown CAN'T HAVE Verified 12/28/18 07:07 Anti-Inflamma DUE TO GASTRIC BYPASS Home Medications Home Medications Medication Instructions Recorded Confirmed Type bupropion HCl 300 mg PO QAM 11/23/18 12/28/18 History calcium carbonate-vitamin D3 1 tab PO DAILY 11/23/18 12/28/18 History [Calcium 600 with Vitamin D3] donepezil [Aricept] 5 mg PO HS 11/23/18 12/28/18 History esomeprazole magnesium 40 mg PO BID 11/23/18 12/28/18 History hydrochlorothiazide 25 mg PO QAM 11/23/18 11/23/18 History hydrocodone-acetaminophen 1 tab PO Q6H 11/23/18 12/28/18 History hydroxyzine HCl 25 mg PO BID 11/23/18 12/28/18 History lamotrigine 100 mg PO HS 11/23/18 12/28/18 History levothyroxine 125 mcg PO QAM 11/23/18 12/28/18 History melatonin 10 mg PO HS 11/23/18 12/28/18 History montelukast [Singulair] 10 mg PO HS 11/23/18 12/28/18 History nitroglycerin 1 tab SUBLINGUAL UD PRN 11/23/18 11/23/18 History pediatric multivitamin no.136 1 tab PO DAILY 11/23/18 12/28/18 History [Children Multivitamin] pregabalin [Lyrica] 200 mg PO BID 11/23/18 12/28/18 History propranolol 160 mg PO HS 11/23/18 12/28/18 History topiramate 50 mg PO BID 11/23/18 12/28/18 History trazodone 25 mg PO HS 11/23/18 12/28/18 History Patient History Medical History Coronary artery disease (Chronic) NSTEMI 2004, s/p PCI to OM 1 with BIBIANA. Sleep apnea (Chronic) CPAP HS Acid reflux Adrenal insufficiency Was treated with steroids daily for several years for this and chronic pain/fibromyalgia, but was weaned off, and has been off of all steroids since about 6 months ago. COPD (chronic obstructive pulmonary disease) Has rescue inhaler but never uses Familial tremor Fibromyalgia Hiatal hernia High cholesterol History of heart attack DECEMBER 2004 .CATH, STENT X1 (PUSHPA) History of hypertension History of neck problems "DISC PROBLEMS" Septic shock HX OF 2011. Was being treated for abdominal infection (s/p hernia repair) with PICC line, and PICC became infected, turned to sepsis. 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 Surgical History History of back surgery "SCREWS IN HIPS AND WENT UP TO SHOULDER BLADES WITH RODS AND SCREWS" History of back surgery 2 TOTAL BACK SURGERIES - 1) "SPINAL DECOMPRESSION WITH FUSION" History of cardiac cath HEART ATTACK...2004 - STENT X 1 PUSHPA History of cholecystectomy History of colonoscopy History of ganglion cyst REMOVAL X2 / R ANKLE History of gastric bypass History of gynecologic surgery LEEP History of hernia surgery WITH PANNICULECTOMY History of hernia surgery X2 TOTAL/ONE WITH PANNICULECTOMY History of hysterectomy OVARIES REMAIN History of incision and drainage "DEBRIDEMENT OF ABDOMEN" X2 History of left knee replacement History of tubal ligation Status post insertion of spinal cord stimulator [email or web address] - SEP 2018 PLACED Social History Preferred Language: Uzbek Communication Ability: Effective Email Marketing Processor Required: No Beliefs That Will Affect Care: None Current Living Situation: Alone Other Information That Helps Us Care for You: Yes ([facility] OP, PT SPOKE WITH SURGEON OFFICE ABOUT) Feels Safe at Home: Yes Smoking Status: Former smoker Tobacco Type: cigarettes Do You Dip or Chew Tobacco: No Smoking End Date: DECEMBER 2004 QUIT Hx Alcohol Use: No Hx Substance Use: No Review of Systems Review of Systems: Review of system was limited however 10 systems were reviewed and all are unremarkable except for the above. Physical Exam Physical Exam: Physical exam revealed vital signs are stable, S1-S2 regular rate and rhythm, lungs are clear, abdomen is benign, no edema, neuro exam revealed cranial nerves are totally intact from 2 through 12, no evidence of tremor, no evidence of hyperactive muscular fasciculation, reflexes and has been maintained, no sensory or motor loss, and she is 5 over 5 4 extremities. I could not assess her gait. Results & Data Vital Signs (Past 12 Hours) Vital Signs Temp Pulse Resp BP Pulse Ox 12/28/18 07:18 36.5 C 55 L 18 116/66 95 Laboratory Results Labs were reviewed, chemistry still pending as of the time of this dictation. Diagnostic Findings No new imaging.
--- NOTE | 2018-12-28 10:37 | Consultation ---
Date of Consultation December 28, 2018 Assessment & Plan (1) Loss of consciousness: Patient presents for right TKA Unfortunately during perioperative state patient developed seizure-like activity after the administration of local ropivacaine Concern for seizure-like activity secondary to right sided tongue biting, bilateral myoclonic jerks witnessed by anesthesiology Patient had what appeared to be post ictal phase and does not recall event Question syncope versus seizure-like activity versus tremor Patient has known history of familial tremor in which she takes Lamictal This morning patient did take Wellbutrin 300mg, levothyroxine, topamax and nexium She states she did not take lamictal last evening as she ran out of medication Patient currently admitted to ICU Right TKA cancelled for today, will await MRI and neurology recommendations prior to clearance EEG obtained and negative for seizure-like activity Discussed case with neurologist Dr. Almonte MRI brain with and without contrast ordered CBC, CMP, mag, TSH Patient on multiple medications that can lower seizure threshold including Wellbutrin- will decrease to 150mg daily She is already on 2 antiepileptics, but not for seizure disorder Appreciate neurology recommendations (2) Coronary artery disease: denies chest pain/sob continue risk reduction management only on propranolol but more for familial tremor ASA on hold given upcoming procedure (3) Fibromyalgia: Patient on Lyrica, topamax along with spinal stimulator for chronic pain/fibromyalgia (4) Familial tremor: Taking lamictal and propranolol for tremor pt states she missed lamicital last evening (5) Right knee DJD: Was to undergo R TKA today, case cancelled will hold on on surgical intervention until seen and evaluated by neuro and pending above work up (6) Sleep apnea: cpap at HS (7) Hypertension: bp controlled on HCTZ, propranolol (8) High cholesterol: heart healthy diet currently not on statin (9) Hypothyroidism: continue levothyroxine TSH pending (10) Obesity: s/p gastric bypass BMI 33 encourage lifestyle modifications (11) DVT prophylaxis: SCDS, TEDS per attending Disposition: per primary Follow up: PCP Dr. Hong upon discharge Patient was seen and examined in collaboration with Dr. Khan, please see addendum Supervising Physician Co-Signing Physician Notes Patient is a 50 yr female with multiple comorbidities presents for an elective right TKA had seizure-like episode during perioperative. After having ropivacaine and epinephrine nerve block injection. Patient states that she has no recall of the incident and was confused at the time. Currently patient is doing well and offers no complaints. Denies seizure history in the past. Also denies any history of chest pain, SOB, dizziness. She is on aricept and wellbutrin which can decrease the seizure threshold and also ran out of lamictal 5 days ago as per patient. EEG is normal. On Exam patient is is moderately built and nourished, no apparent distress, +Tongue bite, Lungs CTA, S1, S2, No murmur, Abd soft, non tender, grossly no focal deficits neurologically. MRI brain is pending. Patient's wellbutrin dose is decreased to 150mg. Restarted Lamictal. Neurology consulted. TSH pending.Appreciate ICU team help. I personally reviewed the record. Patient is interviewed and examined at bedside. Patient's care is coordinated with Carolina Ramirze PA-C. Please refer to the documentation above for details of patient's presentation and for discussion of other issues. History of Present Illness Requesting Physician: Dr. Steen Reason for Consultation: Pre operative new onset seizure Attending Physician: Ayden Steen MD History of Present Illness This is a 58-year-old female who has a significant PMH of CAD, HLD, COPD, hypothyroidism, fibromyalgia, PEPPER on CPAP, depression, CRAWFORD, essential tremor who presents to [facility] for elective right TKA. During perioperative period at 840 patient underwent right abductor canal nerve block with 0.5% ropivacaine and epinephrine. Further she received 2 mg Versed. At 840 patient desaturated into low 80s, had witnessed right-sided tongue biting, myoclonic activity concerning for seizure. Vital signs remained stable however at 9 AM patient was not responsive to verbal or tactile stimuli concerning for postictal state. At 910 she began to respond and was unaware of events. I saw the patient approximately 1030. She does not recall any events but does recall being present to undergo right knee replacement. She currently denies any recent illness, fever, chills, sweats, lightheadedness, dizziness, chest pain, shortness of breath, palpitations, nausea, vomiting, diarrhea, abdominal pain, pain. She denies any past medical history of seizure. She is currently on Wellbutrin for depression. She is on Topamax for chronic pain and Lamictal for tremors. Daugther is at bedside. Allergies Allergy/AdvReac Type Severity Reaction Status Date / Time ROSINA Inhibitors AdvReac Unknown drop in bp Verified 12/28/18 07:07 NSAIDS (Non-Steroidal AdvReac Unknown CAN'T HAVE Verified 12/28/18 07:07 Anti-Inflamma DUE TO GASTRIC BYPASS Home Medications Home Medications Medication Instructions Recorded Confirmed Type bupropion HCl 300 mg PO QAM 11/23/18 12/28/18 History calcium carbonate-vitamin D3 1 tab PO DAILY 11/23/18 12/28/18 History [Calcium 600 with Vitamin D3] donepezil [Aricept] 5 mg PO HS 11/23/18 12/28/18 History esomeprazole magnesium 40 mg PO BID 11/23/18 12/28/18 History hydrochlorothiazide 25 mg PO QAM 11/23/18 11/23/18 History hydrocodone-acetaminophen 1 tab PO Q6H 11/23/18 12/28/18 History hydroxyzine HCl 25 mg PO BID 11/23/18 12/28/18 History lamotrigine 100 mg PO HS 11/23/18 12/28/18 History levothyroxine 125 mcg PO QAM 11/23/18 12/28/18 History melatonin 10 mg PO HS 11/23/18 12/28/18 History montelukast [Singulair] 10 mg PO HS 11/23/18 12/28/18 History nitroglycerin 1 tab SUBLINGUAL UD PRN 11/23/18 11/23/18 History pediatric multivitamin no.136 1 tab PO DAILY 11/23/18 12/28/18 History [Children Multivitamin] pregabalin [Lyrica] 200 mg PO BID 11/23/18 12/28/18 History propranolol 160 mg PO HS 11/23/18 12/28/18 History topiramate 50 mg PO BID 11/23/18 12/28/18 History trazodone 25 mg PO HS 11/23/18 12/28/18 History Patient History Family History Father ALS (amyotrophic lateral sclerosis) Brother Coronary heart disease Social History Preferred Language: Samoan Communication Ability: Effective Event Specialist Food Demonstrator Required: No Beliefs That Will Affect Care: None Current Living Situation: Alone Other Information That Helps Us Care for You: Yes ([facility] OP, PT SPOKE WITH SURGEON OFFICE ABOUT) Feels Safe at Home: Yes Smoking Status: Former smoker Tobacco Type: cigarettes Do You Dip or Chew Tobacco: No Smoking End Date: DECEMBER 2004 QUIT Hx Alcohol Use: No Hx Substance Use: No Review of Systems Review of Systems: All systems reviewed & are unremarkable except as noted in HPI & below Physical Exam Physical Exam: Gen: WD/WN, F, NAD, lying in bed, pleasant, conversing easily Head: Normocephalic, Atraumatic Eyes: Sclera normal, no conjunctival injection, PERRLA, EOMI ENT: Gross hearing intact, normal pharynx, mucous membranes moist, Area on R tongue with blood noted (where tongue was bitten) Neck: supple, no adenopathy, No JVD, no bruit, Resp: Clear to auscultation b/l, no wheeze, rales, rhonchi. Normal insp/exp effort, no accessory muscle use CV: Regular rate, regular rhythm, no murmur, rub, gallop, or ectopy Abd: +BS x 4, soft, nontender, nondistended Musculoskeletal: moves extremities active rom x 4, strength intact, good glass inserter strength Extremities: No edema bilaterally Skin: warm, moist, no rash, negative turgor, cap refill < 2sec Neuro: Alert and oriented x 3, speech normal, good mood/affect, cran nerve 2-12 intact grossly : deferred Results & Data Vital Signs (Past 12 Hours) Vital Signs Temp Pulse Resp BP Pulse Ox 12/28/18 07:18 36.5 C 55 L 18 116/66 95 Laboratory Results Short CBC 12/28/18 Range/Units 10:05 WBC 8.51 (4.8-10.8) K/uL Hgb 12.4 (12.0-16.0) g/dL Hct 38.8 (37-47) % Plt Count 258 (130-400) K/uL Diagnostic Findings CXR: IMPRESSION: 1. No acute cardiopulmonary findings. 2. Mild cardiomegaly. Medications Administered Acetaminophen (Tylenol) 1,000 mg PO PREOP FLORY Stop: 12/28/18 18:00 Last Admin: 12/28/18 07:45 Dose: 1,000 mg Documented by: [id number] Dexamethasone (Decadron) 8 mg PO PREOP FLORY Stop: 12/28/18 18:00 Last Admin: 12/28/18 07:44 Dose: 8 mg Documented by: [id number] Famotidine (Pepcid) 20 mg PO PREOP FLORY Stop: 12/28/18 18:00 Last Admin: 12/28/18 07:45 Dose: 20 mg Documented by: [id number] Gabapentin (Neurontin) 600 mg PO PREOP FLORY Stop: 12/28/18 18:00 Last Admin: 12/28/18 07:44 Dose: 600 mg Documented by: [id number] Lactated Ringer's (Lr) 1,000 mls @ 15 mls/hr IV .Q24H FLORY Stop: 12/28/18 18:00 Last Admin: 12/28/18 07:34 Dose: 15 mls/hr Documented by: [id number] Metoclopramide HCl (Reglan) 10 mg PO PREOP FLORY Stop: 12/28/18 18:00 Last Admin: 12/28/18 07:45 Dose: 10 mg Documented by: [id number] ECG Rate (beats per minute): 58 Rhythm: sinus bradycardia Change: no significant change (1) Sleep apnea Sleep apnea type: unspecified type Qualified Code(s): G47.30 - Sleep apnea, unspecified (2) Coronary artery disease Associated angina: without angina Coronary Disease-Associated Artery/Lesion type: jena artery [place] vs. transplanted heart: jena heart Qualified Code(s): I25.10 - Atherosclerotic heart disease of jena coronary artery without angina pectoris (3) Hypothyroidism Hypothyroidism type: unspecified Qualified Code(s): E03.9 - Hypothyroidism, unspecified (4) Right knee DJD Osteoarthritis type: primary Qualified Code(s): M17.11 - Unilateral primary osteoarthritis, right knee
[2018-12-28 11:00] LABS: Albumin Level 3.2 gm/dl (3.4-5.0); Calcium 8.3 mg/dl (8.5-10.1); Creatinine Clr Calc Pharmacy 72.5 ml/min; Est GFR (African American) 76.5; Magnesium 2.3 mg/dl (1.8-2.4); Potassium 3.8 mmol/L (3.5-5.1)
[2018-12-28 11:10] LABS: Albumin Globulin Ratio 0.9 (0.9-2); Bilirubin,Total 0.4 mg/dl (0.2-1); Globulin 3.5 gm/dl (2.5-4.0); Total Protein 6.7 gm/dl (6.4-8.2)
[2018-12-28] MEDS ORDERED: ACETAMINOPHEN SOL 650 MG/20.3 ML UDC PO PRN (12:47)
[2018-12-28] MEDS: D5W AND 1/2NSS 1,000 ML IV SCH (13:27)
[2018-12-28] MEDS: HYDROCODONE/ACETAMOPHEN 5/325MG TAB PO SCH ×3 (13:30→23:25)
--- NOTE | 2018-12-28 13:30 | Neurology Consultation ---
Date of Consultation December 28, 2018 Assessment & Plan (1) Seizure-like activity: 1. 1 isolated seizure with pre procedure hypotension and sedation 2. EEG with no focal seizure 3. MRI brain ordered to r/o lesions and ischemic event- prior to procedure 4. medication list- on 2 medication known to decrease seizure threshhold- aricept and wellbutrin 5. lamictal was no taking for tremor and didn't take last night may have been combination of withdrawal and sedation effect- if needed could increase dose to cover for further seizure activity- Dr Clifton follows and can further assess if needed will sign off for now and will review MRI when completed. If any findings further recommendations once reviewed. Supervising Physician Co-Signing Physician Notes I have seen and discussed above patient with Dr Emery Almonte, neurology I have seen, examined and interviewed this patient, discussed her case with Mira Ospina PA-C, and I am awaiting the results of her MRI scan. An EEG and laboratory studies have been unremarkable She presents with a witnessed seizure occurring during a preanesthetic for a right knee replacement with regional block and Versed She had a brief postictal state and is now back to her baseline. He tells me that she neglected to take her Lamictal for the past 5-7 days and she takes a dose of 100 mg at night for essential tremor prescribed by Dr. Hernández of [place] [facility] she is also on Topamax and low-dose pain management. Other medications have been unchanged but she is on Wellbutrin 300 mg a day At this point I do not have any ready explanation for the single seizure other than to suspect potential Lamictal withdrawal although admittedly this is a bit of a stretch I am not in favor of doing anything more than reinstituting her Lamictal, I have suggested that her Wellbutrin be cut 250 mg and that after discharge and knee replacement she be reassessed by her neurologist in [place] with consideration given to performing a longer EEG and perhaps simply raising the Lamictal level into the appropriate range for anticonvulsant coverage We will review the MRI but frankly unless it is abnormal do not need to see her on a regular basis as she does have her neurologic care rendered on an outpatient basis by a physician in her home area Emery Almonte MD History of Present Illness Reason for Consultation: new onset seizure Requesting Physician: Ayden Steen MD Attending Physician: Ayden Steen MD History of Present Illness Latrice is a 58 year old female with PMH of CAD, HLD, COPD, hypothyroidism, fibromyalgia, PEPPER on CPAP, depression, CRAWFORD, essential tremor who presents to [facility] for elective right TKA. During perioperative period at 840 patient underwent right abductor canal nerve block with 0.5% ropivacaine and epinephrine. Further she received 2 mg Versed. At 840 patient desaturated into low 80s, had witnessed right-sided tongue biting, myoclonic activity concerning for seizure. Vital signs remained stable however at 9 AM patient was not responsive to verbal or tactile stimuli concerning for postictal state. At 910 she began to respond and was unaware of events. An EEG was ordered which showed no seizure foci. She does not recall any events but does recall being present to undergo right knee replacement. denies CP, SOB, abdominal pain, one sided weakness, numbness tingling, N, V. vision changes. She denies any past medical history of seizure or any family history of seizures. She is on Wellbutrin for depression. topamax and lamictal for chronic pain and tremors which was prescribed by Dr Clifton in [place]. She is also on Aricept and trazodone. She did bite her tongue but no incontinence Allergies Allergy/AdvReac Type Severity Reaction Status Date / Time ROSINA Inhibitors AdvReac Unknown drop in bp Verified 12/28/18 07:07 NSAIDS (Non-Steroidal AdvReac Unknown CAN'T HAVE Verified 12/28/18 07:07 Anti-Inflamma DUE TO GASTRIC BYPASS Home Medications Home Medications Medication Instructions Recorded Confirmed Type bupropion HCl 300 mg PO QAM 11/23/18 12/28/18 History calcium carbonate-vitamin D3 1 tab PO DAILY 11/23/18 12/28/18 History [Calcium 600 with Vitamin D3] donepezil [Aricept] 5 mg PO HS 11/23/18 12/28/18 History esomeprazole magnesium 40 mg PO BID 11/23/18 12/28/18 History hydrochlorothiazide 25 mg PO QAM 11/23/18 11/23/18 History hydrocodone-acetaminophen 1 tab PO Q6H 11/23/18 12/28/18 History hydroxyzine HCl 25 mg PO BID 11/23/18 12/28/18 History lamotrigine 100 mg PO HS 11/23/18 12/28/18 History levothyroxine 125 mcg PO QAM 11/23/18 12/28/18 History melatonin 10 mg PO HS 11/23/18 12/28/18 History montelukast [Singulair] 10 mg PO HS 11/23/18 12/28/18 History nitroglycerin 1 tab SUBLINGUAL UD PRN 11/23/18 11/23/18 History pediatric multivitamin no.136 1 tab PO DAILY 11/23/18 12/28/18 History [Children Multivitamin] pregabalin [Lyrica] 200 mg PO BID 11/23/18 12/28/18 History propranolol 160 mg PO HS 11/23/18 12/28/18 History topiramate 50 mg PO BID 11/23/18 12/28/18 History trazodone 25 mg PO HS 11/23/18 12/28/18 History Patient History Family History Father ALS (amyotrophic lateral sclerosis) Brother Coronary heart disease Social History Preferred Language: Czech Communication Ability: Effective Bus Mechanic Required: No Beliefs That Will Affect Care: None Current Living Situation: Alone Other Information That Helps Us Care for You: Yes ([facility] OP, PT SPOKE WITH SURGEON OFFICE ABOUT) Feels Safe at Home: Yes Smoking Status: Former smoker Tobacco Type: cigarettes Do You Dip or Chew Tobacco: No Smoking End Date: DECEMBER 2004 QUIT Hx Alcohol Use: No Hx Substance Use: No Physical Exam Physical Exam: Physical Exam: Constitutional: appearance over nourished, healthy and normal Ears, Nose, Mouth and Throat: mucous membranes moist, no injection and skin normal, eyes normal, laceration of tongue Cardiovascular: normal S-1 and S-2 and regular rate and rhythm Respiratory: clear to auscultation (CTA) and no rales, rhonchi or wheeze Musculoskeletal: no peripheral edema and good distal pulses Skin: no stigmata of neurocutaneous disease noted and normal and intact Eyes: extraocular muscles intact (EOMI) and pupils equal, round and reactive to light (PERRL) NEUROLOGIC EXAMINATION: Mental status: Alert and interactive Oriented to full date and location Oriented to person Speech fluent with no evidence of aphasia Cranial Nerves smile eye brow raise symmetric Reflexes: Deep tendon reflexes were symmetrical and graded 2/5. Sensory: light or cool touch Coordination: finger to nose no bi pass Gait/Stance: Posture normal. lying in bed Motor: Negative for pronator drift of out stretched arms with eyes closed. Strength: biceps triceps hand centrifuge separator tender 5/5 bilaterally hip flex plantar flex ext 5/5 bilaterally Results & Data Vital Signs (Past 12 Hours) Vital Signs Temp Pulse Pulse Resp BP BP Pulse Ox 12/28/18 12:00 63 125/81 96 12/28/18 11:30 59 L 95 12/28/18 11:01 59 L 115/81 94 12/28/18 11:00 59 L 95 12/28/18 10:30 58 L 99 12/28/18 10:01 64 116/75 100 12/28/18 10:00 57 L 98 12/28/18 07:18 36.5 C 55 L 18 116/66 95
--- NOTE | 2018-12-28 18:02 | Orthopedic Progress Note ---
Date of Service December 28, 2018 Assessment & Plan (1) Right knee DJD: End-stage osteoarthritis right knee. Surgery canceled earlier today due to seizure. [place] by employee health rn service that this is medication related side effects and likely she is going to be stable for surgery pending MRI and neurology consult. If all studies negative and patient cleared patient tentatively added onto our schedule tomorrow to complete her surgery. Subjective patient feeling well mild headache Physical Exam Constitutional: Patient awake alert and neurological exam intact. Results & Data Vital Signs (Past 12 Hours) Vital Signs Temp Pulse Pulse Resp BP BP Pulse Ox 12/28/18 14:40 69 96 12/28/18 14:30 65 95 12/28/18 14:20 63 95 12/28/18 14:10 59 L 95 12/28/18 14:00 56 L 123/76 93 12/28/18 13:50 55 L 95 12/28/18 13:40 59 L 93 12/28/18 13:30 59 L 93 12/28/18 13:20 59 L 94 12/28/18 13:10 57 L 97 12/28/18 13:00 58 L 103/75 96 12/28/18 12:50 61 93 12/28/18 12:40 60 94 12/28/18 12:30 57 L 95 12/28/18 12:20 60 93 12/28/18 12:10 61 95 12/28/18 12:00 63 125/81 96 12/28/18 11:30 59 L 95 12/28/18 11:01 59 L 115/81 94 12/28/18 11:00 59 L 95 12/28/18 10:30 58 L 99 12/28/18 10:01 64 116/75 100 12/28/18 10:00 57 L 98 12/28/18 07:18 36.5 C 55 L 18 116/66 95 (1) Right knee DJD Osteoarthritis type: primary Qualified Code(s): M17.11 - Unilateral primary osteoarthritis, right knee
--- NOTE | 2018-12-28 20:30 | XRay Report ---
XR thoracic spine 2V CLINICAL HISTORY: for MRI confirm stimulator placement COMPARISON STUDY: None. FINDINGS: There are spinal stimulator leads terminating at the T1 level. These enter the spinal canal at the T6-T7 level. These likely are within an epidural location. The leads appear intact. Posterior decompression and fusion within the lower thoracic and lumbar spine with pedicle screws and rods. Th e hardware appears intact. This is partially visualized on this study. No fracture or subluxation wit hin the thoracic spine. Mild to moderate degenerative disc disease throughout the thoracic spine. IMPRESSION: Spinal stimulator leads terminate at the T1 level. These likely reside in an epidural lo cation. Electronically signed by: Andrés Rosas M.D. 12/28/2018 8:29 PM
[2018-12-28] MEDS: TRAZODONE HCL 50 MG TAB PO SCH (21:09)
[2018-12-28] MEDS: DONEPEZIL HCL 5 MG TAB PO SCH (21:09)
[2018-12-28] MEDS: PANTOprazole 40 MG TAB PO SCH (21:09)
[2018-12-28] MEDS: TOPIRAMATE 50 MG TAB PO SCH (21:09)
[2018-12-28] MEDS: PREGABALIN 100 MG CAP PO SCH (21:10)
[2018-12-28] MEDS: MONTELUKAST SODIUM 10 MG TABLET PO SCH (21:10)
[2018-12-28] MEDS: PROPRANOLOL HCL LA 80 MG CAPCR PO SCH (21:11)
[2018-12-28] MEDS: lamoTRIgine 100 MG TAB PO SCH (21:11)
[2018-12-28] MEDS ORDERED: GADOBUTROL 65ML VIAL IV PRN (22:00)
--- NOTE | 2018-12-28 22:18 | Magnetic Resonance Report ---
Brain MRI WITH AND WITHOUT CONTRAST HISTORY: new onset seizure w/ and w/o seizure TECHNIQUE: Multiplanar multisequence MRI of the brain was performed both before and after the intrave nous administration of contrast. COMPARISON STUDY: None. FINDINGS: There is no mass, hematoma, midline shift, or acute infarct. The paranasal sinuses are imelda r. The mastoid air cells are clear. The ventricles and sulci are within normal limits. Scattered foci of T2 hyperintensity seen within the periventricular and subcortical white matter are nonspecific bu t suggestive of mild microvascular ischemic changes. The major vascular flow voids at the skull base are well-maintained. The temporal lobes are symmetric. 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 No abnormal enhancement. IMPRESSION: No acute intracranial abnormality. Scattered foci of T2 hyperintensity seen within the periventricula r and subcortical white matter are nonspecific but favor mild microvascular ischemic change. Electronically signed by: Andrés Rosas M.D. 12/28/2018 10:16 PM
[2018-12-29] MEDS: D5W AND 1/2NSS 1,000 ML IV SCH ×2 (04:34→16:52)
[2018-12-29 04:49] LABS: Hemoglobin 10.6 g/dL (12.0-16.0); Mean Corpuscular Hgb Conc 31.2 g/dL (32-36); Mean Corpuscular Volume 78.2 fL (80-100); Mean Platelet Volume 9.2 fL (7.4-10.4); Platelet Count 254 K/uL (130-400); RDW Standard Deviation 54.3 fL (36.4-46.3); Red Blood Count 4.35 M/uL (4.2-5.4); White Blood Count 7.11 K/uL (4.8-10.8)
[2018-12-29] MEDS: HYDROCODONE/ACETAMOPHEN 5/325MG TAB PO SCH ×2 (05:04→18:29)
[2018-12-29 05:09] LABS: BUN Creatinine Ratio 9.7 (10-20); Creatinine Clr Calc Pharmacy 87.2 ml/min; Est GFR (African American) 95.6; Est GFR (Non-African American) 82.5; Potassium 3.6 mmol/L (3.5-5.1)
[2018-12-29] MEDS ORDERED: fentaNYL citrate 100 MCG/2 ML VIAL ONE ×2 (07:06→09:12)
[2018-12-29] MEDS ORDERED: MIDAZOLAM HCL 1 MG/ML 2ML VIAL ONE ×2 (07:07)
[2018-12-29] MEDS ORDERED: POVIDONE-IODINE OP SOLN 30 ML BTL ONE (07:15)
[2018-12-29] MEDS ORDERED: BACITRACIN INJ 50,000 UNIT VIAL ONE (07:15)
[2018-12-29] MEDS ORDERED: BUPIVACAINE 0.5 % 5 MG/1 ML PF 10ML VIAL ONE (07:25)
[2018-12-29] MEDS ORDERED: BUPIVACAINE/EPINEPHRINE 0.5% MPF 1:200,000 30 ML VIAL ONE (07:26)
[2018-12-29] MEDS ORDERED: DEXAMETHASONE SOD INJ 4 MG/ML VIAL ONE ×3 (07:26→09:41)
--- NOTE | 2018-12-29 07:28 | History & Physical Bridge Note ---
Date of Service December 29, 2018 History & Physical Bridge Note I have examined the patient, reviewed the History & Physical and in the interval since the performance of the History & Physical I have noted the following changes of clinical significance: no changes noted in knee exam. Patient had a seizure had complete recovery is back to normal status and seizure work-up completed and patient medically cleared for surgery.
[2018-12-29] MEDS ORDERED: CEFAZOLIN 2000MG 2,000 MG/15 ML SYR IV SCH (07:30)
--- NOTE | 2018-12-29 07:43 | Anesthesiology Progress Note ---
Date of Service December 29, 2018 Patient stable overnight in ICU.Awaiting lab results from outside lab for ropivacaine levels.Patient cleared for surgery. Physical Exam Vital Signs: Last Vital Signs Temp 36.8 C 12/29/18 07:31 Pulse 57 L 12/29/18 07:31 Resp 18 12/29/18 07:31 BP 97/66 L 12/29/18 07:31 Pulse Ox 97 12/29/18 07:31 Results & Data Medications Administered Hydrocodone Bitart/Acetaminophen ([place] 5/325) 1 tab PO Q6H [facility] Stop: 01/11/19 11:44 Last Admin: 12/29/18 05:04 Dose: Not Given Documented by: [id number] Admin: 12/28/18 23:25 Dose: 1 tab Documented by: [id number] Admin: 12/28/18 18:05 Dose: 1 tab Documented by: [id number] Admin: 12/28/18 13:30 Dose: 1 tab Documented by: [id number] Donepezil HCl (Aricept) 5 mg PO [facility] Stop: 01/27/19 20:59 Last Admin: 12/28/18 21:09 Dose: 5 mg Documented by: [id number] Gadobutrol (Gadavist 65ml) 9 ml IV ONCE PRN PRN Reason: Interaction Checking Stop: 01/01/19 21:59 Last Admin: 12/28/18 22:01 Dose: 9 ml Documented by: [id number] Hydroxyzine HCl (Vistaril) 25 mg PO BID [facility] Stop: 01/27/19 20:59 Last Admin: 12/28/18 21:10 Dose: 25 mg Documented by: [id number] Dextrose/Sodium Chloride (D5w And 1/2nss) 1,000 mls @ 80 mls/hr IV .[id number] [facility] Stop: 01/27/19 12:59 Last Admin: 12/29/18 04:34 Dose: 80 mls/hr Documented by: [id number] Infusion: 12/29/18 01:57 Dose: 80 mls/hr Documented by: [id number] Admin: 12/28/18 13:27 Dose: 80 mls/hr Documented by: [id number] Lamotrigine (Lamictal) 100 mg PO HS [facility] Stop: 01/27/19 20:59 Last Admin: 12/28/18 21:11 Dose: 100 mg Documented by: [id number] Montelukast Sodium (Singulair) 10 mg PO [facility] Stop: 01/27/19 20:59 Last Admin: 12/28/18 21:10 Dose: 10 mg Documented by: [id number] Pantoprazole Sodium (Protonix) 40 mg PO BID [facility] Stop: 01/27/19 20:59 Last Admin: 12/28/18 21:09 Dose: 40 mg Documented by: [id number] Pregabalin (Lyrica) 200 mg PO BID [facility] Stop: 01/27/19 20:59 Last Admin: 12/28/18 21:10 Dose: 200 mg Documented by: [id number] Propranolol HCl (Inderal La) 160 mg PO [facility] Stop: 01/27/19 20:59 Last Admin: 12/28/18 21:11 Dose: 160 mg Documented by: [id number] Topiramate (Topamax) 50 mg PO BID [facility] Stop: 01/27/19 20:59 Last Admin: 12/28/18 21:09 Dose: 50 mg Documented by: [id number] Trazodone HCl (Desyrel) 25 mg PO [facility] Stop: 01/27/19 20:59 Last Admin: 12/28/18 21:09 Dose: 25 mg Documented by: [id number]
[2018-12-29] MEDS ORDERED: ROPIVACAINE 0.5% HCL/PF 150 MG, BUPIVACAINE 0.5% MPF 30 ML, EPINEPHrine 30MG/30ML (OR U... INFIL ONE (07:45)
[2018-12-29] MEDS ORDERED: TRANEXAMIC ACID 1,000 MG in 0.9 % SODIUM CHLORIDE 100 ML IV ONE ×2 (07:45→08:00)
[2018-12-29] MEDS ORDERED: ONDANSETRON INJ 2 MG/ML 2 ML VIAL IV PRN ×2 (08:04→11:50)
[2018-12-29] MEDS ORDERED: ATROPINE SULFATE 0.1 MG/ML 10ML SYR IV PRN (08:04)
[2018-12-29] MEDS ORDERED: ePHEDrine sulfate 50 MG/ML AMP IV PRN (08:04)
--- NOTE | 2018-12-29 08:04 | Anesthesiology Consultation ---
Date of Service December 29, 2018 Assessment & Plan Chart Review Chart Review: Acceptable Risk for Surgery Consults Requested none ASA ASA3 Proposed Anesthesia Anesthesia Type: General Risk / Benefits Reviewed With: PT / POA / Parent / Guardian, Accepts Plan and Informed Consent Obtained NPO Date Last Intake of Fluids: 12/28/18 Time Last Intake of Fluids: 23:15 Last Intake of Fluids Comment: sips at 0500 with meds Date Last Intake of Solids: 12/28/18 Time Last Intake of Solids: 16:30 History Surgery Operation Date: 12/28/18 08:40 Proposed Procedures p Right Total Knee Arthroplasty - Ayden Steen MD Operation Date: 12/29/18 08:00 Proposed Procedures p Right Total Knee Arthroplasty - Ayden Steen MD Height/Weight Height: 5 ft 5 in Weight: 92.397 kg Allergies Allergy/AdvReac Type Severity Reaction Status Date / Time ROSINA Inhibitors AdvReac Unknown drop in bp Verified 12/28/18 07:07 NSAIDS (Non-Steroidal AdvReac Unknown CAN'T HAVE Verified 12/28/18 07:07 Anti-Inflamma DUE TO GASTRIC BYPASS Medications Home Medications Medication Instructions Recorded Confirmed Last Taken bupropion HCl 300 mg PO QAM 11/23/18 12/28/18 12/28/18 05:00 calcium carbonate-vitamin D3 1 tab PO DAILY 11/23/18 12/28/18 12/22/18 [Calcium 600 with Vitamin D3] donepezil [Aricept] 5 mg PO HS 11/23/18 12/28/18 12/27/18 22:30 esomeprazole magnesium 40 mg PO BID 11/23/18 12/28/18 12/28/18 05:00 hydrochlorothiazide 25 mg PO QAM 11/23/18 11/23/18 Unknown hydrocodone-acetaminophen 1 tab PO Q6H 11/23/18 12/28/18 12/27/18 18:00 hydroxyzine HCl 25 mg PO BID 11/23/18 12/28/18 12/27/18 22:30 lamotrigine 100 mg PO HS 11/23/18 12/28/18 12/22/18 levothyroxine 125 mcg PO QAM 11/23/18 12/28/18 12/28/18 05:00 melatonin 10 mg PO HS 11/23/18 12/28/18 12/27/18 22:30 montelukast [Singulair] 10 mg PO HS 11/23/18 12/28/18 12/27/18 22:30 nitroglycerin 1 tab SUBLINGUAL UD PRN 11/23/18 11/23/18 Unknown pediatric multivitamin no.136 1 tab PO DAILY 11/23/18 12/28/18 12/22/18 [Children Multivitamin] pregabalin [Lyrica] 200 mg PO BID 11/23/18 12/28/18 12/27/18 22:30 propranolol 160 mg PO HS 11/23/18 12/28/18 12/27/18 22:30 topiramate 50 mg PO BID 11/23/18 12/28/18 12/28/18 05:00 trazodone 25 mg PO HS 11/23/18 12/28/18 12/27/18 22:30 Active Medications Generic Name Dose Route Start Last Admin Trade Name Freq PRN Reason Stop Dose Admin Hydrocodone Bitart/Acetaminophen 1 tab 12/28/18 11:45 12/29/18 05:04 [place] 5/325 PO 01/11/19 11:44 Not Given Q6H FLORY Donepezil HCl 5 mg 12/28/18 21:00 12/28/18 21:09 Aricept PO 01/27/19 20:59 5 mg HS FLORY Administration Gadobutrol 9 ml 12/28/18 22:00 12/28/18 22:01 Gadavist 65ml IV 01/01/19 21:59 9 ml ONCE PRN Administration Interaction Checking Hydroxyzine HCl 25 mg 12/28/18 21:00 12/28/18 21:10 Vistaril PO 01/27/19 20:59 25 mg BID [facility] Administration Dextrose/Sodium Chloride 1,000 mls @ 80 mls/hr 12/28/18 13:00 12/29/18 04:34 D5w And 1/2nss IV 01/27/19 12:59 80 mls/hr .[id number] FL[facility] Administration Lamotrigine 100 mg 12/28/18 21:00 12/28/18 21:11 Lamictal PO 01/27/19 20:59 100 mg HS [facility] Administration Montelukast Sodium 10 mg 12/28/18 21:00 12/28/18 21:10 Singulair PO 01/27/19 20:59 10 mg HS FL[facility] Administration Pantoprazole Sodium 40 mg 12/28/18 21:00 12/28/18 21:09 Protonix PO 01/27/19 20:59 40 mg BID [facility] Administration Pregabalin 200 mg 12/28/18 21:00 12/28/18 21:10 Lyrica PO 01/27/19 20:59 200 mg BID [facility] Administration Propranolol HCl 160 mg 12/28/18 21:00 12/28/18 21:11 Inderal La PO 01/27/19 20:59 160 mg HS [facility] Administration Topiramate 50 mg 12/28/18 21:00 12/28/18 21:09 Topamax PO 01/27/19 20:59 50 mg BID [facility] Administration Trazodone HCl 25 mg 12/28/18 21:00 12/28/18 21:09 Desyrel PO 01/27/19 20:59 25 mg HS FLORY Administration Past Medical History Medical History History of hypertension Adrenal insufficiency Was treated with steroids daily for several years for this and chronic pain/fibromyalgia, but was weaned off, and has been off of all steroids since about 6 months ago. 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 Hypothyroidism Coronary artery disease (Chronic) NSTEMI 2004, s/p PCI to OM 1 with BIBIANA. Sleep apnea (Chronic) CPAP HS Septic shock HX OF 2011. Was being treated for abdominal infection (s/p hernia repair) with PICC line, and PICC became infected, turned to sepsis. Past Family History Family History Father ALS (amyotrophic lateral sclerosis) Brother Coronary heart disease Past Surgical History Surgical History History of cardiac cath HEART ATTACK...2004 - STENT X 1 PUSHPA History of gastric bypass History of back surgery "SCREWS IN HIPS AND WENT UP TO SHOULDER BLADES WITH RODS AND SCREWS" Status post insertion of spinal cord stimulator [facility] - SEP 2018 PLACED History of hysterectomy OVARIES REMAIN History of tubal ligation History of gynecologic surgery LEEP History of cholecystectomy History of hernia surgery WITH PANNICULECTOMY History of hernia surgery X2 TOTAL/ONE WITH PANNICULECTOMY History of incision and drainage "DEBRIDEMENT OF ABDOMEN" X2 History of back surgery 2 TOTAL BACK SURGERIES - 1) "SPINAL DECOMPRESSION WITH FUSION" History of left knee replacement History of ganglion cyst REMOVAL X2 / R ANKLE History of colonoscopy Past Anesthesia History Pt reports needing to be given "steroids to raise my BP after surgery," in the past. Anesthesia progress notes from 2014 and 2017 surgeries do not show steroids given in PACU, BPs were stable. Pt was previously on Cortef for adrenal insufficiency and may have had steroid bolus prior to surgery in the past, but this has since been tapered off. 11/03/17 Removal of hardware L4-S1, Dec/fusion T11-L3 with iliac bolts @ [facility]: MAC 3, ETT 7.5, grade view I. 2014 TKA: SAB successful with 3 attempts Social History Smoking Status: Former smoker tobacco type: cigarettes Do You Dip or Chew Tobacco: No Smoking End Date: DECEMBER 2004 QUIT Hx Alcohol Use: No Hx Substance Use: No substance use type: does not use Physical Exam Vital Signs Last Vital Signs Temp 36.8 C 12/29/18 07:31 Pulse 57 L 12/29/18 07:31 Resp 18 12/29/18 07:31 BP 97/66 L 12/29/18 07:31 Pulse Ox 97 12/29/18 07:31 Constitutional + obese ENMT Mouth: + poor dentition; no TMJ abnormality Thyromental Distance: > or= 3.5 Finger Breadths Mallampati Class: II Neck normal visual inspection Respiratory normal respiratory effort Cardiovascular Rate/Rhythm: regular rate and regular rhythm Musculoskeletal spinal cord stimulator Neurologic moves all extremities Psychiatric Orientation: alert Testing Other Testing MRI brain and EEG normal Laboratory Results 12/29/18 04:18 12/29/18 04:18 Blood Type O Positive 11/25/18 13:25 Antibody Screen NEGATIVE 11/25/18 13:25 PT 9.9 Seconds (9.0-12.0) 11/25/18 13:25 INR 1.0 (0.9-1.1) 11/25/18 13:25 APTT 30.6 Seconds (21.0-31.0) 11/25/18 13:25 Hemoglobin A1c 5.8 % (4.5-5.6) H 11/25/18 13:25 Urine Color Yellow 11/25/18 13:25 Urine Appearance Clear (Clear) 11/25/18 13:25 Urine pH 5.0 (4.5-7.5) 11/25/18 13:25 Ur Specific [place] 1.021 (1.000-1.030) 11/25/18 13:25 Urine Protein Negative (Negative) 11/25/18 13:25 Urine Glucose (UA) Negative (Negative) 11/25/18 13:25 Urine Ketones Negative (Negative) 11/25/18 13:25 Urine Nitrite Negative (Negative) 11/25/18 13:25 Ur Leukocyte Esterase Negative (Negative) 11/25/18 13:25 12/28/18 22:29 POC Glucose 81
[2018-12-29] MEDS ORDERED: BuPROPion XL 300 MG TABCR PO SCH (09:00)
[2018-12-29] MEDS ORDERED: BuPROPion XL 150 MG TABCR PO SCH (09:00)
[2018-12-29] MEDS ORDERED: GLYCOPYRROLATE 0.2 MG/ML VIAL ONE (09:40)
[2018-12-29] MEDS ORDERED: ROCURONIUM BROMIDE 10 MG/ML 5 ML VIAL ONE (09:40)
[2018-12-29] MEDS ORDERED: ONDANSETRON INJ 2 MG/ML 2 ML VIAL ONE (09:40)
[2018-12-29] MEDS ORDERED: LIDOCAINE HCL 2% 2 ML VIAL/AMP(20MG/ML) INFIL ONE (09:40)
[2018-12-29] MEDS ORDERED: NEOSTIGMINE METHYLSULFATE 5 MG/5 ML SYR ONE (09:40)
[2018-12-29] MEDS ORDERED: PROPOFOL IV EMULSION 10 MG/ML 20 ML VIAL IV ONE (09:40)
--- NOTE | 2018-12-29 09:43 | Operative Report ---
Post Operative Report Pre & Post Diagnosis Operation Date: 12/28/18 08:40 <No data on this case meets the specified criteria> Operation Date: 12/29/18 08:00 Pre-Op Diagnosis: Right knee end-stage osteoarthritis Post-Op Diagnosis: Right knee end-stage osteoarthritis Procedure Operation Date: 12/28/18 08:40 Actual Procedures p Right Total Knee Arthroplasty - Ayden Steen MD Operation Date: 12/29/18 08:00 Actual Procedures p Right Total Knee Arthroplasty(Right) - Ayden Steen MD Surgeon Ayden Steen MD Embedded Software Design Engineer Adriano BOYER Estimated Blood Loss 5 Findings Consistent with Post-Op Diagnosis Specimens Bone cuts Drains 2 Hemovac Anesthesia Type General Complications none Disposition Accompanied Patient To Recovery: No Disposition: Recovery Room Indications 58-year-old female with end-stage lateral compartment osteoarthritis of the right knee. Radiographs some trace [id number] lateral compartment on flexion views. Patient has successful well aligned left knee replacement. Description of Procedure The patient was taken to the operating room and anesthetized under general anesthetic. Patient was placed supine on the the operating table. A pneumatic tourniquet was placed about the right upper thigh. The knee exam demonstrated 0 to 130 degrees range of motion with a valgus knee mild MCL laxity with valgus stress. The involved leg was elevated exsanguinated with Esmarch bandage and the pneumatic tourniquet was raised to 300 millimeters mercury. A longitudinal incision was made across the anterior knee. Skin flaps were elevated. An incision was made into the medial retinaculum and extended up into the mid third of the quadriceps tendon and extended down to the tibial tubercle. Intra- articular findings demonstrated [id number] lateral compartment grade 3-4 lesion on the medial femoral condyle and grade 3 central wear on the patella tricompartmental osteophytes chronic lateral meniscus tear. The knee was exposed by excising cruciate ligaments and menisci. The infrapatellar fat pad was resected. The fat pad over the anterior femur at the upper aspect of the articular surface was resected for placement of the component in that area. A subperiosteal peel lateral release was performed around the patella. The appropriate balance ligaments in the knee the IT band was released subperiosteally the lateral capsule was released around the posterior lateral corner. The [employer] journey 2.0 posterior stabilized total knee arthroplasty system was utilized for the procedure. The intramedullary marc was placed and the distal femoral cut guide set for 6 degrees valgus cut at standard distal femoral resection. The distal femoral cut was made. Sizing guide was applied and we match the epicondylar axis and trochlear groove for alignment with external rotation and sized the femur for a size 5 component. The size 5, 5 in 1 cutting block was placed. The anterior posterior and chamfer cuts were made. The knee was extended and a free hand cut technique was performed to the patella. The patella with was measured and the width was reproduced using a 35 patella component. 3 drill holes are made for the patella component pegs. The tibia was then subluxed. The custom tibial cutting block was pinned in position and the proximal tibial cut was made with the oscillating saw. The size 4 tibial trial was externally rotated in line with the tibial tubercle and pinned in position. The punch for the stem was used. The femoral trial was inserted and centered the notch cutting devices were used and the collet was placed. Tibial trials were used for the insert. The size 9 trial gave balanced liga ments through full range of motion. Patella tracking was assessed with range of motion. The patella tracked some minor liftoff so I performed a limited lateral release leaving the synovium intact enough that the patella tracked completely centrally in the groove. The trials were removed. The Orthomix anesthetic cocktail was injected per protocol. The cut bone surfaces and soft tissue were copiously irrigated with antibiotic solution with bacitracin. The final components were cemented with Simplex cement. The final components were [employer] journey 2.0 posterior stabilized right femoral component size 5, size 4 primary tibial baseplate, posterior stabilized 9 polyethylene insert, 35 mm symmetrical patella. While the cement cured the Betadine soak was used per protocol. When the cement cured the knee was copiously irrigated with pulsatile lavage antibiotic solution with bacitracin. 2 drains were brought out laterally connected to Hemovac. The quadriceps tendon and medial retinaculum were closed with interrupted [id number] #1 Vicryl sutures. The knee was taken through full range of motion and repair was secure. The subcutaneous tissues were closed with 2-0 Vicryl sutures. The skin was closed with jossy. A sterile dressing was applied. The tourniquet was let down and the patient had good capillary refill to the extremity. The patient tolerated the procedure well. My physician assistant terminal manager Adriano BOYER assisted in the procedure including prepping draping leg positioning soft tissue retraction instrument management and assisted in the closure ,dressings application and will participate in postoperative care the patient. I attest to the content of the Intraoperative Record and any orders documented therein. Any exceptions are noted below.
[2018-12-29] MEDS ORDERED: ATROPINE SO4 1 MG/ML 1ML VIAL ONE (09:45)
[2018-12-29] MEDS: fentaNYL citrate 100 MCG/2 ML VIAL IV PRN ×4 (10:20→10:43)
[2018-12-29] MEDS ORDERED: HYDROmorphone INJ 1 MG/ML SYRINGE ONE (10:55)
[2018-12-29] MEDS: HYDROmorphone INJ 1 MG/ML SYRINGE IV PRN ×3 (10:57→11:14)
--- NOTE | 2018-12-29 11:17 | Anesthesiology Progress Note ---
Date of Service December 29, 2018 Anesthesia Post Procedure Vital Signs Vital Signs: Temp Pulse Pulse Pulse Resp BP BP 12/29/18 11:15 55 L 12 98/58 L 12/29/18 11:05 53 L 14 103/58 L 12/29/18 10:55 57 L 13 104/59 L 12/29/18 10:45 56 L 21 97/68 L 12/29/18 10:35 50 L 12 115/62 12/29/18 10:25 53 L 10 L 105/62 12/29/18 10:15 57 L 19 111/69 12/29/18 10:08 36.5 C 58 L 14 111/76 12/29/18 08:00 36.7 C 54 L 16 12/29/18 07:31 36.8 C 57 L 18 97/66 L 12/29/18 07:00 51 L 99/66 L 12/29/18 06:01 50 L 101/67 12/29/18 05:00 51 L 102/65 12/29/18 04:37 36.4 C L 12/29/18 04:01 52 L 88/62 L 12/29/18 04:00 51 L 12/29/18 03:00 51 L 98/61 L 12/29/18 02:01 51 L 97/65 L 12/29/18 02:00 51 L 12/29/18 01:24 16 12/29/18 01:02 54 L 12/29/18 01:01 54 L 91/68 L 12/29/18 00:01 57 L 100/71 12/29/18 00:00 36.4 C L 12/28/18 23:01 55 L 123/74 12/28/18 22:28 53 L 123/60 12/28/18 21:00 56 L 100/67 12/28/18 20:25 58 L 108/67 12/28/18 20:01 61 99/71 L 12/28/18 20:00 36.7 C 12/28/18 19:01 67 114/65 12/28/18 14:40 69 12/28/18 14:30 65 12/28/18 14:20 63 12/28/18 14:10 59 L 12/28/18 14:00 56 L 123/76 12/28/18 13:50 55 L 12/28/18 13:40 59 L 12/28/18 13:30 59 L 12/28/18 13:20 59 L 12/28/18 13:10 57 L 12/28/18 13:00 58 L 103/75 12/28/18 12:50 61 12/28/18 12:40 60 12/28/18 12:30 57 L 12/28/18 12:20 60 12/28/18 12:10 61 12/28/18 12:00 63 125/81 12/28/18 11:30 59 L Pulse Ox 12/29/18 11:15 93 12/29/18 11:05 94 12/29/18 10:55 91 12/29/18 10:45 91 12/29/18 10:35 96 12/29/18 10:25 90 12/29/18 10:15 93 12/29/18 10:08 86 L 12/29/18 08:00 94 12/29/18 07:31 97 12/29/18 07:00 95 12/29/18 06:01 97 12/29/18 05:00 94 12/29/18 04:37 12/29/18 04:01 95 12/29/18 04:00 94 12/29/18 03:00 95 12/29/18 02:01 96 12/29/18 02:00 94 12/29/18 01:24 95 12/29/18 01:02 95 12/29/18 01:01 96 12/29/18 00:01 95 12/29/18 00:00 12/28/18 23:01 95 12/28/18 22:28 96 12/28/18 21:00 93 12/28/18 20:25 96 12/28/18 20:01 95 12/28/18 20:00 12/28/18 19:01 96 12/28/18 14:40 96 12/28/18 14:30 95 12/28/18 14:20 95 12/28/18 14:10 95 12/28/18 14:00 93 12/28/18 13:50 95 12/28/18 13:40 93 12/28/18 13:30 93 12/28/18 13:20 94 12/28/18 13:10 97 12/28/18 13:00 96 12/28/18 12:50 93 12/28/18 12:40 94 12/28/18 12:30 95 12/28/18 12:20 93 12/28/18 12:10 95 12/28/18 12:00 96 12/28/18 11:30 95 Pain Intensity Right Knee: Pain Intensity: 5 Notes Mental Status: alert / awake / arousable Patient Amnestic to Procedure: Yes Nausea / Vomiting: adequately controlled Pain: adequately controlled Airway Patency, RR, SpO2: stable & adequate BP & HR: stable & adequate Hydration State: stable & adequate Anesthetic Complications: no major complications apparent
--- NOTE | 2018-12-29 11:20 | XRay Report ---
XR knee RT 2V routine CLINICAL HISTORY: Surgical Post Op COMPARISON: None. DISCUSSION: There are postsurgical changes of a total right knee arthroplasty and patellar resurfacin g. The femoral and tibial components appear well seated. Overlying skin jossy and surgical drains a re evident. There is air within the soft tissues consistent with recent surgery. IMPRESSION: Postsurgical changes of a total right knee arthroplasty. Electronically signed by: Khoa Teixeira M.D. 12/29/2018 11:18 AM
[2018-12-29] MEDS ORDERED: BISACODYL 10 MG SUPP PR PRN (11:50)
[2018-12-29] MEDS ORDERED: NALOXONE HCL 0.4 MG/1 ML VIAL/CARP IV PRN (11:50)
[2018-12-29] MEDS ORDERED: MAGNESIUM HYDROXIDE SUSP 30 ML UDC PO PRN (11:50)
[2018-12-29] MEDS ORDERED: HYDROmorphone INJ 0.5 MG/0.5 ML SYR IV PRN (11:50)
[2018-12-29] MEDS: LEVOTHYROXINE SODIUM 125 MCG TABLET PO SCH (12:10)
[2018-12-29] MEDS: PANTOprazole 40 MG TAB PO SCH ×2 (12:11→21:19)
[2018-12-29] MEDS: BuPROPion XL 300 MG TABCR PO SCH (12:11)
[2018-12-29] MEDS: TOPIRAMATE 50 MG TAB PO SCH ×2 (12:11→21:19)
[2018-12-29] MEDS: CALCIUM 600MG + VIT D 400 IU TAB PO SCH (12:12)
[2018-12-29] MEDS: PREGABALIN 100 MG CAP PO SCH ×2 (12:15→21:19)
[2018-12-29] MEDS: MoRPHine SULFATE CR 15 MG TABCR PO SCH ×2 (12:15→21:20)
[2018-12-29] MEDS: OXYCODONE HCL IR 5 MG TAB (IMMEDIATE RELEASE) PO PRN ×3 (14:11→23:43)
--- NOTE | 2018-12-29 16:28 | Hospitalist Progress Note ---
Date of Service December 29, 2018 Assessment & Plan (1) Right knee DJD: S/P R TKA Post op Day #0 - Dr. Steen tolerated procedure well EBL 5ml pain/wound per ortho activity/therapy per ortho dvt ppx per ortho monitor cbc for able anemia (2) Loss of consciousness: Patient presented to [facility] 12/28/18 for right TKA Unfortunately during perioperative state patient developed seizure-like activity after the administration of local ropivacaine Concern for seizure-like activity secondary to right sided tongue biting, bilateral myoclonic jerks witnessed by anesthesiology Patient had what appeared to be post ictal phase and does not recall event Question syncope versus seizure-like activity versus tremor Patient has known history of familial tremor in which she takes Lamictal The morning of initial procedure 12/28, patient did take Wellbutrin 300mg, levothyroxine, topamax and nexium She states she did not take lamictal 12/27 as she ran out of medication and had been off of medication for 5-7 days EEG was negative for seizure like activity MRI +chronic small vessel disease she was seen and evaluated by Dr. Almonte, neurology Recommendations include resuming lamictal as prescribed She will need immediate follow up with outpatient Neuro in [place] Dr. Hernández Further recommend/considering lowering wellbutrin to 250mg, but will defer this to outpatient neurology Also consider prolonged EEG for further eval Rupivicaine level pending continue lamitcal and topamax (on for chronic pain) (3) Coronary artery disease: denies chest pain/sob continue risk reduction management only on propranolol but more for familial tremor ASA on hold given upcoming procedure (4) Anemia: H/H stable at 10.6 and 34.2 Microcytic/Hypochromic check iron studies with a.m. labs monitor for abl anemia (5) Fibromyalgia: Patient on Lyrica, topamax along with spinal stimulator for chronic pain/fibromyalgia (6) Familial tremor: Taking lamictal and propranolol for tremor pt states she missed lamicital last evening (7) Sleep apnea: cpap at HS (8) Hypertension: bp controlled on HCTZ, propranolol continue to hold HCTZ given bp on lower side post operatively (9) High cholesterol: heart healthy diet currently not on statin (10) Hypothyroidism: continue levothyroxine TSH normal (11) Obesity: s/p gastric bypass BMI 33 encourage lifestyle modifications (12) DVT prophylaxis: SCDS, TEDS per attending Disposition: per primary Follow up: PCP Dr. Hong upon discharge Patient was seen and examined in collaboration with Dr. Khan, please see addendum Supervising Physician Co-Signing Physician Notes Patient is seen and examined post op today. Leg pain is controlled. No recurrence of seizure. Denies chest pain, SOB, dizziness. +flatus. No other complaints. On exam patient is is moderately built and nourished, no apparent distress, +Tongue bite, Lungs CTA, S1, S2, No murmur, Abd soft, non tender, grossly no focal deficits neurologically, RLE in surgical dressing, +drain. S/P R TKA POD #0. Monitor for post op anemia, Pain control, bowel regimen to prevent constipation. MRI head showed chronic small vessel disease. Continue lamictal, Topmax. Also continue wellbutrin and aricept as had no issues with these meds for many years. Needs FU with her Neurologist upon discharge. I personally reviewed the record. Patient is interviewed and examined at bedside. Patient's care is coordinated with Carolina Ramirez PA-C. Please refer to the documentation above for details of patient's presentation and for discussion of other issues. Subjective Patient was seen and evaluated in room 324. Status post R TKA day [address] Steen. Doing well postoperatively. She offers no acute concerns. Complaints of right knee pain, 6/10. Requests analgesia. Denies fever, chills, sweats, lightheadedness, dizziness, chest pain, shortness of breath, nausea, vomiting, abdominal pain. She is urinating without difficulty. She tolerated her lunch. Mother and great aunt are at bedside. Review of Systems Review of Systems: As noted per HPI, 10 systems reviewed and negative unless noted above. Physical Exam Physical Exam: Gen: WD/WN, F, sitting up in bed, NAD, A&O x3, pleasant HEENT: Normocephalic, atraumatic, conjunctivae moist, sclerae anicteric, mucous membranes moist. Lung: Clear to Auscultation bilaterally, no wheezes/rales/rhonchi Heart: Regular rate, regular rhythm, no murmurs, rubs, or gallops Abdomen: Soft, NT, ND +BS x 4 Extremities: R TKA incision/dressing CDI, SCDS in place b/l Skin: Warm, no rash, negative turgor. Results & Data Vital Signs (Past 12 Hours) Vital Signs Temp Pulse Pulse Pulse Pulse Resp BP 12/29/18 15:38 36.6 C 56 L 18 12/29/18 13:45 51 L 18 12/29/18 12:45 54 L 18 12/29/18 12:15 48 L 18 12/29/18 11:45 36.5 C 56 L 16 12/29/18 11:30 53 L 17 12/29/18 11:25 36.4 C L 50 L 11 L 12/29/18 11:15 55 L 12 12/29/18 11:05 53 L 14 12/29/18 10:55 57 L 13 12/29/18 10:45 56 L 21 12/29/18 10:35 50 L 12 12/29/18 10:25 53 L 10 L 12/29/18 10:15 57 L 19 12/29/18 10:08 36.5 C 58 L 14 12/29/18 08:00 36.7 C 54 L 16 12/29/18 07:31 36.8 C 57 L 18 12/29/18 07:00 51 L 99/66 L 12/29/18 06:01 50 L 101/67 12/29/18 05:00 51 L 102/65 12/29/18 04:37 36.4 C L BP Pulse Ox 12/29/18 15:38 90/56 L 93 12/29/18 13:45 122/70 99 12/29/18 12:45 99/63 L 100 12/29/18 12:15 108/69 98 12/29/18 11:45 93/67 L 93 12/29/18 11:30 105/62 95 12/29/18 11:25 108/60 95 12/29/18 11:15 98/58 L 93 12/29/18 11:05 103/58 L 94 12/29/18 10:55 104/59 L 91 12/29/18 10:45 97/68 L 91 12/29/18 10:35 115/62 96 12/29/18 10:25 105/62 90 12/29/18 10:15 111/69 93 12/29/18 10:08 111/76 86 L 12/29/18 08:00 94 12/29/18 07:31 97/66 L 97 12/29/18 07:00 95 12/29/18 06:01 97 12/29/18 05:00 94 12/29/18 04:37 Laboratory Results 12/29/18 12/29/18 12/29/18 Range/Units 12:26 04:18 04:18 WBC 7.11 (4.8-10.8) K/uL RBC 4.35 (4.2-5.4) M/uL Hgb 10.6 L (12.0-16.0) g/dL Hct 34.0 L (37-47) % MCV 78.2 L (80-100) fL MCH 24.4 L (25-34) pg MCHC 31.2 L (32-36) g/dL RDW Std Deviation 54.3 H (36.4-46.3) fL RDW Coeff of Pauline 19.0 H (11.5-14.5) % Plt Count 254 (130-400) K/uL MPV 9.2 (7.4-10.4) fL Sodium 143 (136-145) mmol/L Potassium 3.6 (3.5-5.1) mmol/L Chloride 114 H (98-107) mmol/L Carbon Dioxide 24 (21-32) mmol/L Anion Gap 5.0 (3-11) BUN 8 (7-18) mg/dl Creatinine 0.79 (0.6-1.2) mg/dl Est Cr Clr Drug Dosing 87.2 ml/min Est GFR ( Amer) 95.6 Est GFR (Non-Af Amer) 82.5 BUN/Creatinine Ratio 9.7 L (10-20) Glucose 91 (70-99) mg/dl POC Glucose 97 (70-99) Calcium 8.0 L (8.5-10.1) mg/dl 12/28/18 Range/Units 22:29 WBC (4.8-10.8) K/uL RBC (4.2-5.4) M/uL Hgb (12.0-16.0) g/dL Hct (37-47) % MCV (80-100) fL MCH (25-34) pg MCHC (32-36) g/dL RDW Std Deviation (36.4-46.3) fL RDW Coeff of Pauline (11.5-14.5) % Plt Count (130-400) K/uL MPV (7.4-10.4) fL Sodium (136-145) mmol/L Potassium (3.5-5.1) mmol/L Chloride (98-107) mmol/L Carbon Dioxide (21-32) mmol/L Anion Gap (3-11) BUN (7-18) mg/dl Creatinine (0.6-1.2) mg/dl Est Cr Clr Drug Dosing ml/min Est GFR ( Amer) Est GFR (Non-Af Amer) BUN/Creatinine Ratio (10-20) Glucose (70-99) mg/dl POC Glucose 81 (70-99) Calcium (8.5-10.1) mg/dl Diagnostic Findings Knee XRAY: IMPRESSION: Postsurgical changes of a total right knee arthroplasty. Brain MRI: IMPRESSION: No acute intracranial abnormality. Scattered foci of T2 hyperintensity seen within the periventricular and subcortical white matter are nonspecific but favor mild microvascular ischemic change. Medications Administered Bupropion HCl (Wellbutrin-Xl) 300 mg PO QAM FLORY Stop: 01/28/19 08:59 Last Admin: 12/29/18 12:11 Dose: 300 mg Documented by: [id number] Donepezil HCl (Aricept) 5 mg PO HS [facility] Stop: 01/27/19 20:59 Last Admin: 12/28/18 21:09 Dose: 5 mg Documented by: [id number] Gadobutrol (Gadavist 65ml) 9 ml IV ONCE PRN PRN Reason: Interaction Checking Stop: 01/01/19 21:59 Last Admin: 12/28/18 22:01 Dose: 9 ml Documented by: [id number] Hydroxyzine HCl (Vistaril) 25 mg PO BID FLORY Stop: 01/27/19 20:59 Last Admin: 12/29/18 12:10 Dose: 25 mg Documented by: [id number] Admin: 12/28/18 21:10 Dose: 25 mg Documented by: [id number] Dextrose/Sodium Chloride (D5w And 1/2nss) 1,000 mls @ 80 mls/hr IV .[id number] FLORY Stop: 01/27/19 12:59 Last Admin: 12/29/18 04:34 Dose: 80 mls/hr Documented by: [id number] Infusion: 12/29/18 01:57 Dose: 80 mls/hr Documented by: [id number] Admin: 12/28/18 13:27 Dose: 80 mls/hr Documented by: [id number] Lamotrigine (Lamictal) 100 mg PO HS [facility] Stop: 01/27/19 20:59 Last Admin: 12/28/18 21:11 Dose: 100 mg Documented by: [id number] Levothyroxine Sodium (Synthroid) 125 mcg PO DAILYBB [facility] Stop: 01/28/19 06:29 Last Admin: 12/29/18 12:10 Dose: 125 mcg Documented by: [id number] Montelukast Sodium (Singulair) 10 mg PO HS [facility] Stop: 01/27/19 20:59 Last Admin: 12/28/18 21:10 Dose: 10 mg Documented by: [id number] Morphine Sulfate (Ms Contin) 15 mg PO Q12 [facility]ORY Stop: 01/12/19 11:59 Last Admin: 12/29/18 12:15 Dose: 15 mg Documented by: [id number] Multivitamins/Minerals (Caltrate Plus) 1 tab PO DAILY [facility] Stop: 01/28/19 08:59 Last Admin: 12/29/18 12:12 Dose: 1 tab Documented by: [id number] Oxycodone HCl (Roxicodone Immediate Rel) 5 - 10 mg PO Q4H PRN PRN Reason: Pain Stop: 01/12/19 11:49 Last Admin: 12/29/18 14:11 Dose: 10 mg Documented by: [id number] Pantoprazole Sodium (Protonix) 40 mg PO BID [facility]ORY Stop: 01/27/19 20:59 Last Admin: 12/29/18 12:11 Dose: 40 mg Documented by: [id number] Admin: 12/28/18 21:09 Dose: 40 mg Documented by: [id number] Pregabalin (Lyrica) 200 mg PO BID FLORY Stop: 01/27/19 20:59 Last Admin: 12/29/18 12:15 Dose: 200 mg Documented by: [id number] Admin: 12/28/18 21:10 Dose: 200 mg Documented by: [id number] Propranolol HCl (Inderal La) 160 mg PO [facility] Stop: 01/27/19 20:59 Last Admin: 12/28/18 21:11 Dose: 160 mg Documented by: [id number] Topiramate (Topamax) 50 mg PO BID FLORY Stop: 01/27/19 20:59 Last Admin: 12/29/18 12:11 Dose: 50 mg Documented by: [id number] Admin: 12/28/18 21:09 Dose: 50 mg Documented by: [id number] Trazodone HCl (Desyrel) 25 mg PO HS [facility]ORY Stop: 01/27/19 20:59 Last Admin: 12/28/18 21:09 Dose: 25 mg Documented by: [id number] Discontinued Medications Acetaminophen (Tylenol) 1,000 mg PO PREOP [facility] Stop: 12/28/18 18:00 Last Admin: 12/28/18 07:45 Dose: 1,000 mg Documented by: [id number] Hydrocodone Bitart/Acetaminophen ([place] 5/325) 1 tab PO Q6H FLORY Stop: 01/11/19 11:44 Last Admin: 12/29/18 05:04 Dose: Not Given Documented by: [id number] Admin: 12/28/18 23:25 Dose: 1 tab Documented by: [id number] Admin: 12/28/18 18:05 Dose: 1 tab Documented by: [id number] Admin: 12/28/18 13:30 Dose: 1 tab Documented by: [id number] Bacitracin (Bacitracin) Confirm Administered Dose 50,000 units .ROUTE .STK-MED ONE Stop: 12/28/18 07:14 Last Admin: 12/28/18 12:37 Dose: Not Given Documented by: [id number] Bacitracin (Bacitracin) Confirm Administered Dose 50,000 units .ROUTE .STK-MED ONE Stop: 12/29/18 07:16 Last Admin: 12/29/18 09:40 Dose: 50,000 units Documented by: [id number] Dexamethasone (Decadron) 8 mg PO PREOP FLORY Stop: 12/28/18 18:00 Last Admin: 12/28/18 07:44 Dose: 8 mg Documented by: [id number] Famotidine (Pepcid) 20 mg PO PREOP [facility]ORY Stop: 12/28/18 18:00 Last Admin: 12/28/18 07:45 Dose: 20 mg Documented by: [id number] Fentanyl Citrate (Fentanyl Citrate) 50 mcg IV Q5M PRN PRN Reason: PACU Use Only-Pain Stop: 12/29/18 13:04 Last Admin: 12/29/18 10:43 Dose: 50 mcg Documented by: [id number] Admin: 12/29/18 10:33 Dose: 50 mcg Documented by: [id number] Admin: 12/29/18 10:25 Dose: 50 mcg Documented by: [id number] Admin: 12/29/18 10:20 Dose: 50 mcg Documented by: [id number] Gabapentin (Neurontin) 600 mg PO PREOP FLORY Stop: 12/28/18 18:00 Last Admin: 12/28/18 07:44 Dose: 600 mg Documented by: [id number] Hydromorphone HCl (Dilaudid) Confirm Administered Dose 2 mg .ROUTE .STK-MED ONE Stop: 12/29/18 10:56 Last Admin: 12/29/18 12:07 Dose: Not Given Documented by: [id number] Hydromorphone HCl (Dilaudid) 0.5 mg IV ONCE PRN PRN Reason: Pain Stop: 12/29/18 13:05 Last Admin: 12/29/18 11:14 Dose: 0.5 mg Documented by: [id number] Admin: 12/29/18 11:07 Dose: 0.5 mg Documented by: [id number] Admin: 12/29/18 10:57 Dose: 0.5 mg Documented by: [id number] Lactated Ringer's (Lr) 1,000 mls @ 15 mls/hr IV .Q24H FLORY Stop: 12/28/18 18:00 Last Admin: 12/28/18 07:34 Dose: 15 mls/hr Documented by: [id number] Cefazolin Sodium (Ancef 2000mg) 2,000 mg in 15 mls @ 3.75 mls/min IV PREOP FLORY; Protocol Stop: 12/29/18 05:59 Last Admin: 12/28/18 12:37 Dose: Not Given Documented by: [id number] Ropivacaine 150 mg/Bupivacaine HCl 30 ml/Epinephrine HCl 0.15 mg/Ketorolac T romethamine 30 mg/Dexamethasone 4 mg/ Ketamine HCl 10 mg/ Clonidine HCl 100 mcg/ Sodium Chloride 93.35 mls @ 0 mls/hr INFIL TODAY@0600 [facility] Stop: 12/28/18 06:01 Last Admin: 12/28/18 14:10 Dose: Not Given Documented by: [id number] Cefazolin Sodium (Ancef 2000mg) 2,000 mg in 15 mls @ 3.75 mls/min IV PREOP FLORY Stop: 12/29/18 12:00 Last Admin: 12/29/18 08:06 Dose: 3.75 mls/min Documented by: [id number] Tranexamic Acid 1,000 mg/ (Sodium Chloride) 110 mls @ 660 mls/hr IV ONE ONE Stop: 12/29/18 07:54 Last Admin: 12/29/18 08:25 Dose: 660 mls/hr Documented by: [id number] Tranexamic Acid 1,000 mg/ (Sodium Chloride) 110 mls @ 660 mls/hr IV ONE ONE Stop: 12/29/18 08:09 Last Admin: 12/29/18 09:38 Dose: 660 mls/hr Documented by: [id number] Ropivacaine 150 mg/Bupivacaine HCl 30 ml/Epinephrine HCl 0.15 mg/Ketorolac Tromethamine 30 mg/Dexamethasone 4 mg/ Ketamine HCl 10 mg/ Clonidine HCl 100 mcg/ Sodium Chloride 93.35 mls @ 0 mls/hr INFIL ONE ONE Stop: 12/29/18 07:46 Last Admin: 12/29/18 09:20 Dose: 1 mls/hr Documented by: [id number] Metoclopramide HCl (Reglan) 10 mg PO PREOP FLORY Stop: 12/28/18 18:00 Last Admin: 12/28/18 07:45 Dose: 10 mg Documented by: [id number] Miscellaneous (Ortho Joint Anesthetic) Confirm Administered Dose 1 ea .ROUTE .STK-MED ONE Stop: 12/28/18 07:14 Last Admin: 12/28/18 12:37 Dose: Not Given Documented by: [id number] Povidone Iodine (Betadine Ophthalmic Prep) Confirm Administered Dose 30 ml .ROUTE .STK-MED ONE Stop: 12/28/18 07:14 Last Admin: 12/28/18 12:37 Dose: Not Given Documented by: [id number] Povidone Iodine (Betadine Ophthalmic Prep) Confirm Administered Dose 30 ml .ROUTE .STK-MED ONE Stop: 12/29/18 07:16 Last Admin: 12/29/18 09:40 Dose: 30 ml Documented by: [id number] (1) Sleep apnea Sleep apnea type: unspecified type Qualified Code(s): G47.30 - Sleep apnea, unspecified (2) Coronary artery disease Associated angina: without angina Coronary Disease-Associated Artery/Lesion type: [place] artery [place] vs. transplanted heart: [place] heart Qualified Code(s): I25.10 - Atherosclerotic heart disease of [place] coronary artery without angina pectoris (3) Hypothyroidism Hypothyroidism type: unspecified Qualified Code(s): E03.9 - Hypothyroidism, unspecified (4) Right knee DJD Osteoarthritis type: primary Qualified Code(s): M17.11 - Unilateral primary osteoarthritis, right knee (5) Hypertension Hypertension type: essential hypertension Qualified Code(s): I10 - Essential (primary) hypertension
[2018-12-29] MEDS: CEFAZOLIN 2000MG 2,000 MG/15 ML SYR IV SCH ×2 (16:52→23:42)
[2018-12-29] MEDS: KETOROLAC TROMETHAMINE 15 MG/ML VIAL IV PRN (16:55)
[2018-12-29] MEDS ORDERED: ARTIFICIAL TEARS OP PRN (17:21)
[2018-12-29] MEDS: ACETAMINOPHEN 500 MG TAB PO SCH (20:02)
[2018-12-29] MEDS: DOCUSATE SODIUM 100 MG CAP PO SCH (21:17)
[2018-12-29] MEDS: DONEPEZIL HCL 5 MG TAB PO SCH (21:17)
[2018-12-29] MEDS: TRAZODONE HCL 50 MG TAB PO SCH (21:17)
[2018-12-29] MEDS: lamoTRIgine 100 MG TAB PO SCH (21:18)
[2018-12-29] MEDS: PROPRANOLOL HCL LA 80 MG CAPCR PO SCH (21:18)
[2018-12-29] MEDS: ASPIRIN 81 MG ECTAB PO SCH (21:18)
[2018-12-29] MEDS: SENNA 8.6 MG TAB PO SCH (21:19)
[2018-12-29] MEDS: MONTELUKAST SODIUM 10 MG TABLET PO SCH (21:19)
[2018-12-30] MEDS: D5W AND 1/2NSS 1,000 ML IV SCH (04:18)
[2018-12-30] MEDS: OXYCODONE HCL IR 5 MG TAB (IMMEDIATE RELEASE) PO PRN ×4 (06:03→22:02)
[2018-12-30] MEDS: ACETAMINOPHEN 500 MG TAB PO SCH ×3 (06:04→21:57)
[2018-12-30] MEDS: LEVOTHYROXINE SODIUM 125 MCG TABLET PO SCH (06:04)
[2018-12-30 06:06] LABS: Hematocrit (blood only) 30.4 % (37-47); Hemoglobin 9.4 g/dL (12.0-16.0); Mean Corpuscular Hgb Conc 30.9 g/dL (32-36); Mean Platelet Volume 9.1 fL (7.4-10.4); Platelet Count 219 K/uL (130-400); RDW Coefficient of Variation 19.5 % (11.5-14.5); RDW Standard Deviation 56.4 fL (36.4-46.3); White Blood Count 8.79 K/uL (4.8-10.8)
[2018-12-30 06:42] LABS: BUN Creatinine Ratio 7.5 (10-20); Calcium 7.8 mg/dl (8.5-10.1); Creatinine Clr Calc Pharmacy 90.6 ml/min; Est GFR (African American) 100.2; Est GFR (Non-African American) 86.5; Potassium 3.8 mmol/L (3.5-5.1)
[2018-12-30 06:47] LABS: Ferritin 5.3 ng/ml (8-388)
--- NOTE | 2018-12-30 08:03 | Orthopedic Progress Note ---
Date of Service December 30, 2018 Assessment & Plan (1) Right knee DJD: POD #1 Pt/ OT DVT proph- ASA D/C planning- [place] vs. [facility] As per medicine. Subjective POd #1, Doing well, denies sob, cp, n/v. No seizure like activity, on lamictal regularly now. Pain controlled well. Physical Exam Physical Exam: Right knee dressings c/d/i, drain in tact. Toes and ankle mobile. No calf tenderness. A&Ox3. Results & Data Vital Signs (Past 12 Hours) Vital Signs Temp Pulse Pulse Pulse Resp BP Pulse Ox 12/30/18 04:11 36.7 C 49 L 15 102/65 95 12/30/18 04:00 54 L 12/29/18 23:22 36.8 C 52 L 14 93/61 L 98 12/29/18 22:07 62 13 94 (1) Right knee DJD Osteoarthritis type: primary Qualified Code(s): M17.11 - Unilateral primary osteoarthritis, right knee
--- NOTE | 2018-12-30 08:30 | Anesthesiology Progress Note ---
Date of Service December 30, 2018 Anesthesia Post Procedure Vital Signs Vital Signs: Temp Pulse Pulse Pulse Pulse Resp BP 12/30/18 08:18 36.7 C 56 L 16 98/63 L 12/30/18 04:11 36.7 C 49 L 15 102/65 12/30/18 04:00 54 L 12/29/18 23:22 36.8 C 52 L 14 93/61 L 12/29/18 22:07 62 13 12/29/18 20:01 56 L 93/61 L 12/29/18 19:56 36.6 C 51 L 18 88/59 L 12/29/18 15:38 36.6 C 56 L 18 90/56 L 12/29/18 13:45 51 L 18 122/70 12/29/18 12:45 54 L 18 99/63 L 12/29/18 12:15 48 L 18 108/69 12/29/18 11:45 36.5 C 56 L 16 93/67 L 12/29/18 11:30 53 L 17 105/62 12/29/18 11:25 36.4 C L 50 L 11 L 108/60 12/29/18 11:15 55 L 12 98/58 L 12/29/18 11:05 53 L 14 103/58 L 12/29/18 10:55 57 L 13 104/59 L 12/29/18 10:45 56 L 21 97/68 L 12/29/18 10:35 50 L 12 115/62 12/29/18 10:25 53 L 10 L 105/62 12/29/18 10:15 57 L 19 111/69 12/29/18 10:08 36.5 C 58 L 14 111/76 Pulse Ox 12/30/18 08:18 94 12/30/18 04:11 95 12/30/18 04:00 12/29/18 23:22 98 12/29/18 22:07 94 12/29/18 20:01 12/29/18 19:56 96 12/29/18 15:38 93 12/29/18 13:45 99 12/29/18 12:45 100 12/29/18 12:15 98 12/29/18 11:45 93 12/29/18 11:30 95 12/29/18 11:25 95 12/29/18 11:15 93 12/29/18 11:05 94 12/29/18 10:55 91 12/29/18 10:45 91 12/29/18 10:35 96 12/29/18 10:25 90 12/29/18 10:15 93 12/29/18 10:08 86 L Pain Intensity Right Knee: Pain Intensity: 5 Notes Mental Status: alert / awake / arousable and participated in evaluation Patient Amnestic to Procedure: Yes Nausea / Vomiting: adequately controlled Pain: adequately controlled Airway Patency, RR, SpO2: stable & adequate BP & HR: stable & adequate Hydration State: stable & adequate Anesthetic Complications: no major complications apparent and Pt Satisfied with anesthetic care
[2018-12-30] MEDS: PREGABALIN 100 MG CAP PO SCH ×2 (09:13→21:55)
[2018-12-30] MEDS: MoRPHine SULFATE CR 15 MG TABCR PO SCH ×2 (09:14→21:55)
[2018-12-30] MEDS: PANTOprazole 40 MG TAB PO SCH ×2 (09:14→21:56)
[2018-12-30] MEDS: BuPROPion XL 300 MG TABCR PO SCH (09:14)
[2018-12-30] MEDS: MULTIVITAMIN TAB PO SCH (09:15)
[2018-12-30] MEDS: ASPIRIN 81 MG ECTAB PO SCH ×2 (09:15→21:53)
[2018-12-30] MEDS: DOCUSATE SODIUM 100 MG CAP PO SCH ×2 (09:15→21:52)
[2018-12-30] MEDS: TOPIRAMATE 50 MG TAB PO SCH ×2 (09:15→21:56)
[2018-12-30] MEDS: CALCIUM 600MG + VIT D 400 IU TAB PO SCH (09:16)
--- NOTE | 2018-12-30 11:34 | Hospitalist Progress Note ---
Date of Service December 30, 2018 Assessment & Plan (1) Right knee DJD: S/P R TKA Post op Day #[address] Celsa DE LEON 5ml Pain controlled -pain management per ortho -wound management per ortho -PT/OT as appropriate -DVT prophylaxis per ortho -incentive spirometry -Hgb: 9.4 from 10.6 yesterday. monitor H&H (2) Loss of consciousness: Patient presented to [facility] 12/28/18 for right TKA Pt developed seizure-like activity after the administration of local ropivacaine Was concern for seizure-like activity secondary to right sided tongue biting, bilateral myoclonic jerks witnessed by anesthesiology Pt had what appeared to be post ictal phase and does not recall event Question syncope versus seizure-like activity versus tremor Patient has known history of familial tremor in which she takes Lamictal The morning of initial procedure 12/28, patient did take Wellbutrin 300mg, levothyroxine, topamax and nexium She had been out of Lamictal for 5-7 days -EEG was negative for seizure like activity -MRI +chronic small vessel disease -Was evaluated by Dr. Almonte, neurology -Recommendations include resuming lamictal as prescribed -She will need immediate follow up with outpatient Neuro in [place] Dr. Hernández -Further recommend/considering lowering wellbutrin to 250mg, but will defer this to outpatient neurology -Also consider prolonged EEG for further eval -Rupivicaine level pending -continue lamitcal and topamax (on for chronic pain) -No recurrent seizure like activity. No dizziness or syncope -Monitor (3) Coronary artery disease: No CP/SOB -On propranolol (but more for familial tremor) -ASA resumed (4) Anemia: Hgb: 9.4 from 10.6 yesterday Microcytic/Hypochromic. iron: 24, TIBC: 347, Transferrin: 261, Ferritin: 5.3 (5) Fibromyalgia: -Continue Lyrica, topamax -Pt has spinal stimulator for chronic pain/fibromyalgia (6) Familial tremor: -Continue Lamictal and Propranolol for tremor (7) Sleep apnea: -CPAP at HS (8) Hypertension: BP on lower side -Hold HCTZ -Continue propranolol (9) High cholesterol: -Heart healthy diet -Pt not on statin (10) Hypothyroidism: -Continue levothyroxine (11) Obesity: S/P gastric bypass BMI 33 encourage lifestyle modifications (12) DVT prophylaxis: SCDS, TEDS, ASA 81mg BID per attending Disposition: per primary Patient was seen and examined in collaboration with Dr. Khan, please see addendum Supervising Physician Co-Signing Physician Notes Patient is seen and examined POD #2. Complains of Leg pain after having PT today. No recurrence of seizure. Denies chest pain, SOB, dizziness. +flatus. No BM yet, usual as per patient. No other complaints. BP low today, will give IV fluids, Hold HCTZ. Hb at baseline based on prior studies. On exam patient is is moderately built and nourished, no apparent distress, +Tongue bite, Lungs CTA, S1, S2, No murmur, Abd soft, non tender, grossly no focal deficits neurologically, RLE in surgical dressing, +drain. S/P R TKA POD #2. Monitor for post op anemia, Pain control, bowel regimen to prevent constipation. MRI head showed chronic small vessel disease. Continue lamictal, Topmax. Also continue wellbutrin and aricept as had no issues with these meds for many years. Needs FU with her Neurologist upon discharge. I personally reviewed the record. Patient is interviewed and examined at bedside. Patient's care is coordinated with Mariposa Scanlon. Please refer to the documentation above for details of patient's presentation and for discussion of other issues. Subjective F/U Right TKA post op day#2 Pt seen and examined. Lying in bed. Reports just ambulated in [place] and did well, but having some right knee pain after ambulating. Denies extremity weakness. Pt denies any seizure like activity, dizziness, syncope. Urinating without difficulty. Denies BM, reports is passing flatus. Denies fever/chills, N/V, PERRY, neck pain, CP, SOB, abdominal pain, paresthesias, extremity edema. Review of Systems Review of Systems: All systems reviewed & are unremarkable except as noted in HPI & below Physical Exam Physical Exam: General: no distress, obese Head: normocephalic, atraumatic Eyes:conjunctiva non-injected, anicteric ENT: normal inspection external ears, nose, mucous membranes moist Neck: supple, trachea midline Lungs: clear, no respiratory distres CV: RRR, no pretibial edema Abd: normal BS, soft, non-tender Ext: no calf tenderness, R knee with surgical dressing in place is dry. bilateral pedal pushes and pulls intact bilaterally, distal pulses intact, sensation to light touch intact bilaterally Neuro: A&O x 3, no focal deficits noted, normal affect Skin: warm, dry Results & Data Vital Signs (Past 12 Hours) Vital Signs Temp Pulse Pulse Pulse Resp BP Pulse Ox 12/30/18 08:18 36.7 C 56 L 16 98/63 L 94 12/30/18 04:11 36.7 C 49 L 15 102/65 95 12/30/18 04:00 54 L Laboratory Results Short CBC 12/30/18 Range/Units 05:45 WBC 8.79 (4.8-10.8) K/uL Hgb 9.4 L (12.0-16.0) g/dL Hct 30.4 L (37-47) % Plt Count 219 (130-400) K/uL BMP 12/30/18 05:45 Sodium 141 Potassium 3.8 Chloride 113 H Carbon Dioxide 26 BUN 6 L Creatinine 0.76 Glucose 84 Calcium 7.8 L (1) Sleep apnea Sleep apnea type: unspecified type Qualified Code(s): G47.30 - Sleep apnea, unspecified (2) Coronary artery disease Associated angina: without angina Coronary Disease-Associated Artery/Lesion type: [place] artery [place] vs. transplanted heart: [place] heart Qualified Code(s): I25.10 - Atherosclerotic heart disease of [place] coronary artery without angina pectoris (3) Hypothyroidism Hypothyroidism type: unspecified Qualified Code(s): E03.9 - Hypothyroidism, unspecified (4) Right knee DJD Osteoarthritis type: primary Qualified Code(s): M17.11 - Unilateral primary osteoarthritis, right knee (5) Hypertension Hypertension type: essential hypertension Qualified Code(s): I10 - Essential (primary) hypertension
[2018-12-30] MEDS: KETOROLAC TROMETHAMINE 15 MG/ML VIAL IV PRN (14:40)
[2018-12-30] MEDS ORDERED: SODIUM CHLORIDE 0.9% 1000ML 500 ML IV ONE (18:17)
[2018-12-30] MEDS ORDERED: SODIUM CHLORIDE 0.9% 1000ML 1,000 ML IV ONE (18:35)
[2018-12-30] MEDS: TRAZODONE HCL 50 MG TAB PO SCH (21:52)
[2018-12-30] MEDS: DONEPEZIL HCL 5 MG TAB PO SCH (21:52)
[2018-12-30] MEDS: PROPRANOLOL HCL LA 80 MG CAPCR PO SCH (21:54)
[2018-12-30] MEDS: MONTELUKAST SODIUM 10 MG TABLET PO SCH (21:56)
[2018-12-30] MEDS: lamoTRIgine 100 MG TAB PO SCH (21:56)
[2018-12-30] MEDS: SENNA 8.6 MG TAB PO SCH (21:56)
[2018-12-31] MEDS: OXYCODONE HCL IR 5 MG TAB (IMMEDIATE RELEASE) PO PRN ×3 (02:11→13:50)
[2018-12-31] MEDS: LEVOTHYROXINE SODIUM 125 MCG TABLET PO SCH (06:03)
[2018-12-31] MEDS: ACETAMINOPHEN 500 MG TAB PO SCH ×2 (06:05→13:51)
[2018-12-31 06:32] LABS: Mean Corpuscular Volume 80.1 fL (80-100); Mean Platelet Volume 8.7 fL (7.4-10.4); Platelet Count 187 K/uL (130-400); RDW Coefficient of Variation 19.3 % (11.5-14.5); RDW Standard Deviation 56.1 fL (36.4-46.3); Red Blood Count 3.62 M/uL (4.2-5.4); White Blood Count 6.79 K/uL (4.8-10.8)
--- NOTE | 2018-12-31 08:39 | Orthopedic Progress Note ---
Date of Service December 31, 2018 Assessment & Plan (1) Status post right knee replacement: 58 yo female stable POD #2 s/p right TKA, BP improved 1. Med management 2. DVT prophylaxis- ASA, SCDs 3. PT/OT 4. D/C planning- d/c to [facility] when ok with medicine Subjective Pt resting in chair, pain controlled, denies complaints, BP has been down, improved this AM Physical Exam Physical Exam: Toes mobile, N/V/I, Prevena dressing in place Results & Data Vital Signs (Past 12 Hours) Vital Signs Temp Pulse Pulse Resp BP Pulse Ox 12/31/18 07:00 36.7 C 61 18 113/69 94 12/31/18 00:34 93/61 L 12/30/18 23:55 36.4 C L 53 L 16 78/51 L 93 12/30/18 22:08 57 L 18 94 Laboratory Results 12/31/18 Range/Units 06:15 WBC 6.79 (4.8-10.8) K/uL RBC 3.62 L (4.2-5.4) M/uL Hgb 9.0 L (12.0-16.0) g/dL Hct 29.0 L (37-47) % MCV 80.1 (80-100) fL MCH 24.9 L (25-34) pg MCHC 31.0 L (32-36) g/dL RDW Std Deviation 56.1 H (36.4-46.3) fL RDW Coeff of Pauline 19.3 H (11.5-14.5) % Plt Count 187 (130-400) K/uL MPV 8.7 (7.4-10.4) fL
[2018-12-31] MEDS: PREGABALIN 100 MG CAP PO SCH (09:53)
[2018-12-31] MEDS: CALCIUM 600MG + VIT D 400 IU TAB PO SCH (10:05)
[2018-12-31] MEDS: MULTIVITAMIN TAB PO SCH (10:06)
[2018-12-31] MEDS: PANTOprazole 40 MG TAB PO SCH (10:06)
[2018-12-31] MEDS: ASPIRIN 81 MG ECTAB PO SCH (10:06)
[2018-12-31] MEDS: DOCUSATE SODIUM 100 MG CAP PO SCH (10:06)
[2018-12-31] MEDS: TOPIRAMATE 50 MG TAB PO SCH (10:07)
[2018-12-31] MEDS: BuPROPion XL 300 MG TABCR PO SCH (10:08)
[2018-12-31] MEDS: MoRPHine SULFATE CR 15 MG TABCR PO SCH (10:08)
--- NOTE | 2018-12-31 12:50 | Hospitalist Progress Note ---
Date of Service December 31, 2018 Assessment & Plan (1) Right knee DJD: S/P R TKA Post op Day #[address] Celsa DE LEON 5ml Pain is controlled pain management, activity, DVT Px, wound care per ortho Continue PT/OT Monitor for post Op anemia Bowel regimen to prevent constipation Planned to be discharged to Rehab facility today (2) Loss of consciousness: Patient presented to [facility] 12/28/18 for right TKA Pt developed seizure-like activity after the administration of local ropivacaine Was concern for seizure-like activity secondary to right sided tongue biting, bilateral myoclonic jerks witnessed by anesthesiology Patient had post ictal phase and does not recall event Patient missed Lamictal doses for 5-7 days, prior to admission which was restarted Patient has known history of familial tremor in which she takes Lamictal EEG was negative for seizure like activity MRI +chronic small vessel disease Was evaluated by Dr. Almonte, neurology Recommendations include resuming lamictal as prescribed Needs follow up with her Neurologist in [place] Dr. Hernández Consider lowering/replacing wellbutrin Also consider prolonged EEG for further eval as outpatient Rupivicaine level pending continue lamitcal and topamax (on for chronic pain) No recurrent seizure like activity Patient denies dizziness or syncope (3) Coronary artery disease: Continue Aspirin Also on propranolol (but more for familial tremor) (4) Anemia: Hgb stable Microcytic/Hypochromic. iron: 24, TIBC: 347, Transferrin: 261, Ferritin: 5.3 (5) Fibromyalgia: Continue Lyrica, topamax Pt has spinal stimulator for chronic pain/fibromyalgia (6) Familial tremor: Continue Lamictal and Propranolol for tremor (7) Sleep apnea: CPAP at HS (8) Hypertension: Continue propranolol Resume HCTZ as able (9) High cholesterol: Heart healthy diet Not on statin (10) Hypothyroidism: Continue levothyroxine (11) Obesity: S/P gastric bypass BMI 33 encourage lifestyle modifications (12) DVT prophylaxis: SCDS, TEDS, ASA 81mg BID per attending Disposition: per primary Subjective Patient is seen and examined at bedside Complains of knee pain at surgical site after having PT this morning Denies chest pain, SOB, dizziness, nausea No other complaints No recurrence of seizure activity Review of Systems Review of Systems: All systems reviewed & are unremarkable except as noted in HPI & below Physical Exam Physical Exam: Physical Exam: Vitals signs as noted above General Appearance:Moderately built and nourished, no apparent distress Head: normocephalic, Atraumatic Eyes: normal inspection, EOMI Neck: supple, Trachea midline Respiratory/Chest: Normal breath sounds, CTA Cardiovascular: S1, S2, No murmur Abdomen/GI:Soft, Non tender, Bowel sounds present Extremities/Musculoskelatal:normal inspection, no edema, Right knee surgical dressing Neurologic/Psych:AAOX3, grossly no focal neurological deficits Skin: normal color, warm Results & Data Vital Signs (Past 12 Hours) Vital Signs Temp Pulse Resp BP Pulse Ox 12/31/18 07:00 36.7 C 61 18 113/69 94 Laboratory Results Short CBC 12/31/18 Range/Units 06:15 WBC 6.79 (4.8-10.8) K/uL Hgb 9.0 L (12.0-16.0) g/dL Hct 29.0 L (37-47) % Plt Count 187 (130-400) K/uL (1) Right knee DJD Osteoarthritis type: primary Qualified Code(s): M17.11 - Unilateral primary osteoarthritis, right knee (2) Coronary artery disease Coronary Disease-Associated Artery/Lesion type: [place] artery [place] vs. transplanted heart: [place] heart Associated angina: without angina Qualified Code(s): I25.10 - Atherosclerotic heart disease of [place] coronary artery without angina pectoris (3) Sleep apnea Sleep apnea type: unspecified type Qualified Code(s): G47.30 - Sleep apnea, unspecified (4) Hypertension Hypertension type: essential hypertension Qualified Code(s): I10 - Essential (primary) hypertension (5) Hypothyroidism Hypothyroidism type: unspecified Qualified Code(s): E03.9 - Hypothyroidism, unspecified
--- OUTSIDE RECORDS SUMMARY | 2019-01-02 20:00 | External Medical Summary | Continuity of Care Document ---
:1960 Author Name Esvin Dixon, Provider Address Unavailable Unavailable , Care Team Providers Name Role Phone Kacie Keating DO Unavailable [email or web address], [email or web address] Unavailable Unavailable Problems Active medical history not documented Allergies and Adverse Reactions Allergy history not documented Medications Medications not documented Procedures Procedures not documented Immunizations Immunizations not documented Plan of Treatment Planned Observations Planned Goals not documented Results No Known Results Results not documented
--- NOTE | 2019-01-07 03:03 | Discharge Summary ---
DISCHARGE DIAGNOSIS: Degenerative joint disease, right knee. SECONDARY DIAGNOSES: History of coronary artery disease status post myocardial infarction in 2005, chronic obstructive pulmonary disease, sleep apnea with use of CPAP, anxiety, hypothyroidism, osteoarthritis, degenerative disease of the spine, sciatica, gastroesophageal reflux disease, hiatal hernia, obesity. COMPLICATIONS: New onset of seizure like activity during preparation for surgery. CONSULTS: 1. Carolina Ramirez PA-C/Sumanth Khan MD 2. Kacie Keating DO. PROCEDURES: Right total knee arthroplasty performed by Dr. Steen on 12/29/2018. BRIEF HISTORY: As dictated in history and physical. HOSPITAL SUMMARY: The patient was admitted on the above-noted date of 12/28/2018 during the patient's preparation for surgery in the holding area. She was undergoing spinal and also an adductor block per anesthesia ____ as the medication was being placed, the patient ended up losing consciousness and having a seizure-like activity. She was then taken over to the surgical ICU where she was then seen by medicine service and by neurology. EEG was done at that time which was normal and the patient underwent MRI of the brain later that morning which showed no acute intracranial abnormality. It was unknown because essentially of the seizure like activity; however, the patient continued remain stable over the next 24 hours. She was seen by anesthesiology and continued to have medical management per the [place] [facility] service. She was thusly cleared for surgery by 12/29/2018 and then taken to the operating room where the above noted procedure was performed, which she tolerated well. On her first postoperative day, she was doing well and denied shortness of breath, chest pain or nausea or vomiting. She had no more seizure like activity. Pain was controlled. Dressings clean, dry and intact. Toes were mobile. She had no calf tenderness and was alert and oriented x3. Vital signs were stable and she was afebrile and was started on physical therapy protocol and continued on DVT prophylaxis and pain medical management. She was otherwise continue to remain stable throughout her stay and by 12/31/2018, Prevena dressing was remaining stable and it was remaining intact. Toes were mobile. Neurovascular intact. Pain was controlled. She had no complaints. She was progressing with her physical therapy and it was felt that she would need a rehab stay versus skilled facility prior to discharge to home for which [facility] was chosen. She was seen by Dr. Khan prior to discharge and he felt that she was remaining medically stable and it was okay for discharge and she was thusly discharged to [facility] on 12/31/2018. For further review, please see chart. LABORATORY AND X-RAY DATA: As per chart. DISCHARGE INSTRUCTIONS: The patient was discharged to [facility] on 12/31/2018. DIET: Regular. ACTIVITY: Weightbearing as tolerated on the right lower extremity. Follow TK instruction sheets and special care instructions as noted. Follow up with Dr. Steen in 2 weeks. The patient to call for appointment if one has not been made for you. DISCHARGE MEDICATIONS: Acetaminophen 1000 mg p.o. q.8 hours, aspirin 81 mg p.o. b.i.d., oxycodone 5-10 mg p.o. q.6 hours p.r.n. Resume home meds as listed and stop taking hydrocodone.
== END 2018-12-31 14:05 | DRG 470 ==
LOC: ASU 06:17 → 1E 09:04 → ASU 09:06 → 3E 12-29 11:47